=== PATIENT | male | born 1940 | race Hispanic/Latino ===

== ENCOUNTER 2016-11-21 06:47 | Emergency (ER) | payer MEDICARE ==
[2016-11-21 06:47] VITALS: BMI 22.0
[2016-11-21] MEDS ORDERED: Phenylephrine 1% Nasal Spray (15 ml) NAS ONE (07:21)
[2016-11-21] MEDS ORDERED: Silver Nitrate Topical - Stick TOP ONE (07:22)
[2016-11-21] MEDS ORDERED: Phenylephrine 1% Nasal Spray (15 ml) ONE (07:25)
[2016-11-21] MEDS ORDERED: Silver Nitrate Topical - Stick ONE ×2 (07:25→07:27)
--- NOTE | 2016-11-21 07:31 | C.PDOC ---
History Of Present Illness 76 yr old male with PMHx of heart disease, takes aspirin and plavix, presents to the ER for evaluation of bleeding from the left nare last night. Patient states the bleeding resolved last night but this morning while drinking a cup coffee the bleeding started again. Upon arrival to the ED bleeding had resolved. Patient denies fever, chills, vision changes, nausea, vomiting, headache, weakness or numbness. Time Seen by Provider: 11/21/16 07:09 Chief Complaint (Nursing): ENT Problem History Per: Patient History/Exam Limitations: None Onset/Duration Of Symptoms: Days (1) Current Symptoms Are (Timing): Better Past Medical History Reviewed: Historical Data, Nursing Documentation, Vital Signs Vital Signs: Last Vital Signs Temp 97.6 F 11/21/16 06:54 Pulse 120 H 11/21/16 06:54 Resp 18 11/21/16 06:54 BP 139/79 11/21/16 06:54 Pulse Ox 100 11/21/16 08:13 - Medical History PMH: Diabetes, HTN - [facility] Procedures ANGIOPLASTY OF OTHER NON-CORONARY VESSEL(S) (07/14/14) CONTRAST AORTOGRAM (07/14/14) CONTRAST ARTERIOGRAM-LEG (07/14/14) EXCISION OF RIGHT LOBE LIVER, PERCUTANEOUS APPROACH, DIAGN (08/08/16) INSEJ [id number] PERIPHERAL NON-CORONARY VES STENT(S) (07/14/14) INSERTION OF FOUR OR MORE VASCULAR STENTS (07/14/14) PROCEDURE ON FOUR OR MORE VESSELS (07/14/14) Family History: States: No Known Family Hx - Social History Hx Tobacco Use: No Hx Alcohol Use: No Hx Substance Use: No - Immunization History Hx Tetanus Toxoid Vaccination: No Hx Influenza Vaccination: No Hx Pneumococcal Vaccination: No Review Of Systems Except As Marked, All Systems Reviewed And Found Negative. Constitutional: Negative for: Fever, Chills Eyes: Negative for: Vision Change ENT: Positive for: Other ((+) Left nare epistaxis. No active bleeding. ) Gastrointestinal: Negative for: Nausea, Vomiting Neurological: Negative for: Weakness, Numbness, Headache Physical Exam - Physical Exam Appears: Well, Non-toxic, No Acute Distress Skin: Normal Color, Warm, Dry, No Rash Head: Atraumatic, Normacephalic Eye(s): bilateral: Normal Inspection, PERRL, EOMI Ear(s): Bilateral: Normal Nose: Normal, Epistaxis (Left Nare - Site noted to the left anterior with fresh blood, but no active bleeding.), No Deformity, No Tenderness, Other Oral Mucosa: Moist Tongue: Normal Appearing Lips: Normal Appearing Throat: Normal, No Erythema, No Exudate, No Drooling, Other (Residual blood in the pharynx) Neck: Normal, Normal ROM, Supple Chest: Symmetrical, No Tenderness Cardiovascular: Rhythm Regular, No Murmur Respiratory: Normal Breath Sounds, No Rales, No Rhonchi, No Wheezing Extremity: Normal ROM, No Swelling Neurological/Psych: Oriented x3, Normal Speech, Normal Motor ED Course And Treatment O2 Sat by Pulse Oximetry: 100 Medical Decision Making Medical Decision Making: PLAN: * Juvenal-Synephrine SOFIE * Silver Nitrate Stick TOP Juvenal-Synephrine applied to the L nostril. Bleeding site cauterized with silver nitrate stick by PA with no residual bleeding afterwards. Patient advised to follow up with ENT referral provided and to return to the ER at any time for any new or worsening symptoms. Disposition - Disposition Referrals: Anurag Boggs MD [Staff Provider] - Disposition: HOME/ ROUTINE Disposition Time: 08:11 Condition: STABLE Additional Instructions: Follow up with PMD / ENT referral provided in 1-2 days without fail. Return to the ER at any time for any new or worsening symptoms. Instructions: Nosebleed (ED) Print Language: [place] - Clinical Impression Clinical Impression: Epistaxis - PA / [employer]CIAL [employer] INSTRUCTOR / Resident Statement MD/DO has reviewed & agrees with the documentation as recorded. - Scribe Statement The provider has reviewed the documentation as recorded by the Scribe Joyce Ni All medical record entries made by the Colinibkelsey were at my direction and personally dictated by me. I have reviewed the chart and agree that the record accurately reflects my personal performance of the history, physical exam, medical decision making, and the department course for this patient. I have also personally directed, reviewed, and agree with the discharge instructions and disposition.
[2016-11-21 08:50] VITALS: BP 127/73; PULSE 85; RESP 20; TEMP 97.4; O2SAT 98
== END 2016-11-21 08:56 | disposition home or self-care (01) ==
LOC: C.ER 06:47
DX: R04.0 Epistaxis (principal)

== ENCOUNTER 2017-03-17 15:54 | Emergency (ER) | payer MEDICARE ==
[2017-03-17 15:55] VITALS: BMI 22.0
[2017-03-17] MEDS ORDERED: Sodium Chloride 0.9% 1,000 ML IV ONE (16:50)
[2017-03-17] MEDS ORDERED: Iohexol 240 (50 ml) PO STA (16:50)
[2017-03-17] MEDS ORDERED: Iohexol 240 (50 ml) ONE (17:04)
[2017-03-17] MEDS ORDERED: Morphine 4 MG/ML VIAL ONE (17:04)
[2017-03-17] MEDS ORDERED: Sodium Chloride 0.9% 1,000 ML ONE (17:04)
[2017-03-17 17:05] LABS: BASO % 0.6 % (0.0-2.0); EOS % 0.8 % (0.0-4.0); HEMOGLOBIN 9.8 g/dL (12.0-18.0); LYMPH # 0.5 K/uL (1.0-4.3); LYMPH % 8.7 % (20.0-40.0); MEAN CELL VOLUME 106.6 fL (80.0-94.0); MEAN CORPUSCULAR HEMOGLOBIN 36.1 pg (27.0-31.0); MEAN CORPUSCULAR HGB CONC 33.9 g/dL (33.0-37.0); MEAN PLATELET VOLUME 8.5 fL (7.2-11.7); MONO # 0.1 K/uL (0.0-0.8); MONO % 2.6 % (0.0-10.0); NEUT % 87.3 % (50.0-75.0); PLATELET COUNT 187 K/uL (130-400); RBC 2.72 Mil/uL (4.40-5.90); WHITE BLOOD COUNT 5.7 K/uL (4.8-10.8)
[2017-03-17 17:16] LABS: GFR AFRICAN-AMERICAN > 60; GFR NON-AFRICAN AMERICAN > 60
[2017-03-17 17:17] LABS: ALT/SGPT 46 U/L (21-72); AST/SGOT 39 U/L (17-59); BLOOD UREA NITROGEN 17 mg/dL (9-20); CALCIUM 8.2 mg/dl (8.6-10.4); LIPASE 30 U/L (23-300)
[2017-03-17] MEDS ORDERED: Iohexol 300 100 ML IJ ONE (17:32)
[2017-03-17 17:41] LABS: BANDS 1 % (0-2); BASOPHIL 1 % (0-2); LYMPHOCYTE 8 % (20-40); MONOCYTE 3 % (0-10); NEUTROPHIL 87 % (50-75); TOTAL CELLS COUNTED 100
[2017-03-17 17:42] LABS: ANISOCYTOSIS SLIGHT
[2017-03-17 17:43] LABS: PLATELET ESTIMATE NORMAL (NORMAL)
[2017-03-17 18:31] VITALS: RESP 18
--- NOTE | 2017-03-17 19:29 | CT ---
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 This CT exam was performed using one or more of the following dose reduction techniques: automated exposure control, adjustment of the mA and/or kV according to patient size, and/or use of iterative reconstruction technique. Coronal and sagittal reformatted images were created and reviewed. CONTRAST: 100 mL of OMNIPAQUE 300 administered intravenously. EXAM DATE/TIME: 03/17/2017 4:51 PM COMPARISON: CT GUIDED LIVER BIOPSY 08/08/2016 11:20:25 AM FINDINGS: Lower thorax: Heart size is normal. There are coronary calcifications. There is a small right pleural effusion. There is trace left pleural effusion. There are multiple bilateral pulmonary nodules. There is atelectasis at the lung bases. There is scarring at the lung bases There is a small hiatal hernia. ABDOMEN: Liver: A geographic low-attenuation lesion in the right lobe of the liver. There are multiple additional small low attenuation lesions. Gallbladder and bile ducts: Gallbladder is collapsed. Common bile duct is unremarkable. Pancreas: Pancreas is atrophic. There are small adrenal nodules. Spleen: unremarkable Adrenals: See above. Kidneys and ureters: There is a right renal cyst. There are no attenuation left renal lesions too small to characterize. There are renovascular vascular calcifications bilaterally. There is no pelvocaliectasis or ureterectasis. Stomach and bowel: Stomach is incompletely distended. Rotation is normal. There is mild duodenal and proximal jejunal wall thickening. There is no obstruction. Appendix and terminal ileum are unremarkable.Colon is incompletely distended which limits evaluation. There is scattered diverticulosis Appendix: See above. PELVIS: Bladder: Bladder is partially distended. There is bladder wall thickening. There are bladder diverticula. Reproductive: Seminal vesicles and prostate are unremarkable. ABDOMEN and PELVIS: Intraperitoneal space: There is ascites in the abdomen and pelvis. There is no free air Bones/joints: Bony structures are osteopenic.There are degenerative changes in the osseus structures. Soft tissues: There is a left inguinal hernia containing fat and fluid. Vasculature: There are vascular calcifications. Lymph nodes: There is no para-aortic adenopathy. IMPRESSION: Interval increase in size of right pleural effusion with development of a small left effusion; continued multiple bilateral pulmonary nodules consistent with metastases; infiltrative low-attenuation right hepatic lesion seen on prior study consistent with malignancy; interval development of ascites; pancreatic atrophy, unchanged; bladder wall thickening with diverticula Additional findings as described above.
[2017-03-17 20:10] LABS: SQUAMOUS EPITHIAL 5 /hpf (0-5); URINE BACTERIA RARE (<OCC); URINE BILIRUBIN NEGATIVE (NEGATIVE); URINE CLARITY Hazy (Clear); URINE COLOR Yellow (YELLOW); URINE GLUCOSE (UA) NORMAL (Normal); URINE LEUKOCYTE ESTERASE 3+ Leu/uL (Negative); URINE NITRATE NEGATIVE (NEGATIVE); URINE PROTEIN NEGATIVE (NEGATIVE); URINE UROBILINOGEN NORMAL mg/dL (0.2-1.0); WBC CLUMPS FEW /hpf
[2017-03-17 20:11] LABS: URINE BLOOD 2+ (NEGATIVE)
[2017-03-17] MEDS ORDERED: cefTRIAXone IV 1 gm in Dextros 50 ML IVPB ONE ×2 (20:51→20:54)
--- NOTE | 2017-03-17 21:29 | C.PDOC ---
Time Seen by Provider: 03/17/17 16:19 Chief Complaint (Nursing): Abdominal Pain History Per: Patient Onset/Duration Of Symptoms: Days Current Symptoms Are (Timing): Still Present Context: Other (Pt is on Chemotherapy due to Panceartic CA metastasis to Liver) Severity: Moderate Location Of Pain/Discomfort: RUQ Quality Of Discomfort: "Pain" Alleviating Factors: None Additional History Per: Prior Records Past Medical History Reviewed: Historical Data, Nursing Documentation, Vital Signs Vital Signs: Last Vital Signs Temp 98.2 F 03/17/17 20:11 Pulse 80 03/17/17 20:11 Resp 18 03/17/17 20:11 BP 115/70 03/17/17 20:11 Pulse Ox 97 03/17/17 20:11 - Medical History PMH: Diabetes, HTN, Malignancy (Metastatic pancreatic CA) Surgical History: No Surg Hx - [facility] Procedures ANGIOPLASTY OF OTHER NON-CORONARY VESSEL(S) (07/14/14) CONTRAST AORTOGRAM (07/14/14) CONTRAST ARTERIOGRAM-LEG (07/14/14) EXCISION OF RIGHT LOBE LIVER, PERCUTANEOUS APPROACH, DIAGN (08/08/16) INSEJ [id number] PERIPHERAL NON-CORONARY VES STENT(S) (07/14/14) INSERTION OF FOUR OR MORE VASCULAR STENTS (07/14/14) PROCEDURE ON FOUR OR MORE VESSELS (07/14/14) Family History: States: Unknown Family Hx - Social History Hx Tobacco Use: No Hx Alcohol Use: Yes Hx Substance Use: No - Immunization History Hx Tetanus Toxoid Vaccination: Yes Hx Influenza Vaccination: No Hx Pneumococcal Vaccination: No Review Of Systems Except As Marked, All Systems Reviewed And Found Negative. Constitutional: Negative for: Fever Cardiovascular: Negative for: Chest Pain Respiratory: Negative for: Cough, Shortness of Breath Gastrointestinal: Positive for: Abdominal Pain. Negative for: Vomiting, Diarrhea Genitourinary: Positive for: Dysuria (?) Musculoskeletal: Negative for: Neck Pain, Back Pain Skin: Negative for: Rash Neurological: Negative for: Weakness, Numbness, Seizures, Altered Mental Status , Headache Physical Exam - Physical Exam Appears: Non-toxic, No Acute Distress, Chronically Ill Skin: Normal Color, Warm, Dry, No Rash Head: Atraumatic, Normacephalic Eye(s): bilateral: PERRL, EOMI Oral Mucosa: Moist Neck: Normal ROM, Supple Cardiovascular: Rhythm Regular Respiratory: Normal Breath Sounds, No Accessory Muscle Use Gastrointestinal/Abdominal: Soft, Tenderness (mild RUQ), No Guarding, No Rebound Back: No CVA Tenderness Extremity: Normal ROM Neurological/Psych: Oriented x3, Normal Motor, Normal Sensation ED Course And Treatment - Laboratory Results Result Diagrams: 03/17/17 17:02 03/17/17 17:02 Lab Interpretation: Abnormal Interpretation Of Abnormal: UTI, urine C&S Sent O2 Sat by Pulse Oximetry: 97 Pulse Ox Interpretation: Normal - Radiology CXR: Interpreted by Me, Viewed By Me CXR Interpretation: Yes: Other (small right pleural effusion. Metastatic disease in lungs. ) - CT Scan/US CT abd/pelv Other Rad Studies (CT/US): Read By Radiologist, Radiology Report Reviewed CT/US Interpretation: IMPRESSION: Interval increase in size of right pleural effusion with. development of a small left effusion; continued multiple bilateral pulmonary. nodules consistent with metastases; infiltrative low- attenuation right hepatic. lesion seen on prior study consistent with malignancy; interval development of. ascites; pancreatic atrophy, unchanged; bladder wall thickening with diverticula. . Additional findings as described above. Progress Note: Pt does not wish to be admitted to the hospital. Reassessment Condition: Improved Disposition Discussed With : Kana Ortiz Comment: He states pt can be discharged on Cipro and f/up in his office in 2 days. Doctor Will See Patient In The: Office Counseled Patient/Family Regarding: Studies Performed, Diagnosis, Need For Followup, Rx Given - Disposition Referrals: Kana Ortiz MD [Staff Provider] - Disposition: HOME/ ROUTINE Disposition Time: 21:32 Condition: IMPROVED Additional Instructions: Drink plenty of fluids. Follow up with Dr. Ortiz this Friday. Return to the ER if you develop fever, vomiting, worsening of symptoms or if you have any other concerns. Prescriptions: Ciprofloxacin [Cipro] 1 tab PO BID #14 tab oxyCODONE/Acetaminophen [Percocet 5/325 mg Tab] 1 tab PO QID PRN #20 tab PRN Reason: Pain Instructions: Urinary Tract Infection in Men (ED) Forms: [employer] ([place]dean) - Clinical Impression Clinical Impression: Metastatic cancer, UTI (urinary tract infection)
[2017-03-17 21:49] VITALS: BP 119/62; PULSE 78; TEMP 97.8; O2SAT 98
--- NOTE | 2017-03-18 08:09 | CARD ---
APPROVED REPORT EKG Measurement Heart [id number] <Conclusion> Normal sinus rhythm Low voltage QRS Right bundle branch block Abnormal ECG
--- NOTE | 2017-03-18 08:59 | RAD ---
HISTORY: Pleural effusion COMPARISON: 08/08/2016 FINDINGS: LUNGS: Dense biapical pleural thickening and scarring with upper lobe granulomatous changes. Diffuse increased interstitial lung markings. Scattered nodularity at both lung bases with some mild patchy increased markings at the left lung base. Mild right hilar prominence. PLEURA: No significant pleural effusion identified, no pneumothorax apparent. CARDIOVASCULAR: Normal. OSSEOUS STRUCTURES: Probable small chondroid lesion in the right proximal humerus. Degenerative changes in the spine and shoulders. VISUALIZED UPPER ABDOMEN: Normal. OTHER FINDINGS: None. IMPRESSION: Dense biapical pleural thickening and scarring with upper lobe granulomatous changes. Diffuse increased interstitial lung markings. Scattered nodularity at both lung bases with some mild patchy increased markings at the left lung base. Mild right hilar prominence.
== END 2017-03-17 21:54 | disposition home or self-care (01) ==
LOC: C.ER 15:54
DX: C78.02 Secondary malignant neoplasm of left lung (principal); C78.01 Secondary malignant neoplasm of right lung; N39.0 Urinary tract infection, site not specified; I10 Essential (primary) hypertension; E11.9 Type 2 diabetes mellitus without complications; Z87.891 Personal history of nicotine dependence
CPT/HCPCS: 71010; 74177; 80053; 81001; 83690; 85025; 87086; 93005; 96361; 96374; 96375; 99285; J0696; J2270; J7040; Q9966; Q9967

== ENCOUNTER 2017-03-19 00:43 | Inpatient (IN) | payer MEDICARE, OTHER ==
[2017-03-19 00:43] VITALS: BMI 22.0
--- NOTE | 2017-03-19 01:12 | C.PDOC ---
History Of Present Illness Patient with a Hx of metastatic pancreatic CA presents to the ER with a complaint of right sided abdominal pain for the past week. Patient was seen here yesterday, he was discharge with a UTI and a follow up with Dr. Ortiz. Patient returns to the ER for worsening pain; denies fever, chills, nausea, or vomiting. Time Seen by Provider: 03/19/17 01:12 Chief Complaint (Nursing): Abdominal Pain History Per: Patient History/Exam Limitations: no limitations Onset/Duration Of Symptoms: Days Current Symptoms Are (Timing): Still Present Severity: Moderate Pain Scale Rating Of: 4 Location Of Pain/Discomfort: Other (Right flank) Radiation Of Pain To:: None Quality Of Discomfort: Unable To Describe Associated Symptoms: denies: Fever, Chills, Nausea, Vomiting Exacerbating Factors: None Alleviating Factors: None Recent travel outside of the [place]: No Past Medical History Reviewed: Historical Data, Nursing Documentation, Vital Signs Vital Signs: Last Vital Signs Temp 97.7 F 03/19/17 00:55 Pulse 87 03/19/17 00:55 Resp 16 03/19/17 00:55 BP 132/69 03/19/17 00:55 Pulse Ox 99 03/19/17 02:13 - Medical History PMH: Diabetes, HTN, Malignancy (Metastatic pancreatic CA) - [facility] Procedures ANGIOPLASTY OF OTHER NON-CORONARY VESSEL(S) (07/14/14) CONTRAST AORTOGRAM (07/14/14) CONTRAST ARTERIOGRAM-LEG (07/14/14) EXCISION OF RIGHT LOBE LIVER, PERCUTANEOUS APPROACH, DIAGN (08/08/16) INSEJ [id number] PERIPHERAL NON-CORONARY VES STENT(S) (07/14/14) INSERTION OF FOUR OR MORE VASCULAR STENTS (07/14/14) PROCEDURE ON FOUR OR MORE VESSELS (07/14/14) Family History: States: Unknown Family Hx - Social History Hx Tobacco Use: No Hx Alcohol Use: Yes Hx Substance Use: No - Immunization History Hx Tetanus Toxoid Vaccination: Yes Hx Influenza Vaccination: No Hx Pneumococcal Vaccination: No Review Of Systems Constitutional: Negative for: Fever, Chills Eyes: Negative for: Redness Cardiovascular: Negative for: Chest Pain Respiratory: Negative for: Shortness of Breath Gastrointestinal: Positive for: Abdominal Pain. Negative for: Nausea, Vomiting Genitourinary: Positive for: Frequency Musculoskeletal: Negative for: Back Pain Skin: Negative for: Rash, Lesions Neurological: Negative for: Weakness Psych: Positive for: Anxiety Physical Exam - Physical Exam Appears: Non-toxic Skin: Warm, Dry Head: Normacephalic Eye(s): bilateral: Normal Inspection Oral Mucosa: Moist Neck: Trachea Midline, Supple Chest: Symmetrical, No Tenderness Cardiovascular: Rhythm Regular, No Murmur Respiratory: No Rales, No Rhonchi, No Wheezing Gastrointestinal/Abdominal: Soft, No Tenderness Back: CVA Tenderness (Right) Male Genital: No Testicular Tenderness Extremity: No Tenderness Extremity: Bilateral: Atraumatic Pulses: Left Dorsalis Pedis: Normal, Right Dorsalis Pedis: Normal Neurological/Psych: Oriented x3, Normal Speech, Normal Cognition Gait: Steady ED Course And Treatment - Laboratory Results Result Diagrams: 03/19/17 01:34 03/19/17 01:34 O2 Sat by Pulse Oximetry: 99 (Room air) Pulse Ox Interpretation: Normal Progress Note: Blood culture and urinalysis ordered. Morphine and IV fluids administered. Disposition Discussed With : Apple Sommer Comment: accepted the pt on her service and took over the care at 3:48AM Doctor Will See Patient In The: Hospital Counseled Patient/Family Regarding: Studies Performed, Diagnosis - Disposition Disposition: HOSPITALIZED Disposition Time: 01:12 Condition: FAIR Forms: [facility] (Icelandic) - POA Present On Arrival: Poor Glycemic Control - Clinical Impression Clinical Impression: UTI (urinary tract infection), Liver metastasis, Metastatic cancer - Scribe Statement The provider has reviewed the documentation as recorded by the Scribe To More[place] All medical record entries made by the Scribe were at my direction and personally dictated by me. I have reviewed the chart and agree that the record accurately reflects my personal performance of the history, physical exam, medical decision making, and the department course for this patient. I have also personally directed, reviewed, and agree with the discharge instructions and disposition. Decision To Admit - Pt Status Changed To: Hospital Disposition Of: Inpatient - Admit Certification Admit to Inpatient:: After my assessment, the patient will require hospitalization for at least two midnights. This is because of the severity of symptoms shown, intensity of services needed, and/or the medical risk in this patient being treated as an outpatient. - InPatient: Physician Admission Certification:: After my assessment, the patient will require hospitalization for at least two midnights. This is because of the severity of symptoms shown, intensity of services needed, and/or the medical risk in this patient being treated as an outpatient. - . Bed Request Type: Regular Admitting Physician: Apple Sommer Patient Diagnosis: UTI (urinary tract infection), Liver metastasis, Metastatic cancer
[2017-03-19] MEDS ORDERED: Sodium Chloride 0.9% 1,000 ML IV ONE ×2 (01:14→02:31)
[2017-03-19] MEDS ORDERED: Sodium Chloride 0.9% 1,000 ML ONE (01:19)
[2017-03-19 01:40] LABS: EOS # 0.1 K/uL (0.0-0.7); EOS % 1.8 % (0.0-4.0); HEMATOCRIT 26.1 % (35.0-51.0); LYMPH # 0.5 K/uL (1.0-4.3); LYMPH % 14.1 % (20.0-40.0); MEAN CELL VOLUME 105.9 fL (80.0-94.0); MEAN CORPUSCULAR HEMOGLOBIN 35.8 pg (27.0-31.0); MEAN CORPUSCULAR HGB CONC 33.8 g/dL (33.0-37.0); MEAN PLATELET VOLUME 8.2 fL (7.2-11.7); MONO # 0.3 K/uL (0.0-0.8); MONO % 7.5 % (0.0-10.0); WHITE BLOOD COUNT 3.4 K/uL (4.8-10.8)
[2017-03-19 01:48] LABS: CHLORIDE 100 mmol/L (98-107); SODIUM 135 mmol/L (132-148)
[2017-03-19 01:48] LABS: VENOUS BLOOD GAS BASE EXCESS 3.1 mmol/L (0.0-2.0); VENOUS BLOOD GAS PCO2 38 mmHg (40-60); VENOUS BLOOD PH 7.46 (7.32-7.43)
[2017-03-19 01:50] LABS: ALKALINE PHOSPHATASE 419 U/L (38-126); ALT/SGPT 47 U/L (21-72); AST/SGOT 49 U/L (17-59); BILIRUBIN,TOTAL 1.2 mg/dL (0.2-1.3); BLOOD UREA NITROGEN 17 mg/dL (9-20); CARBON DIOXIDE 24 mmol/L (22-30); GFR AFRICAN-AMERICAN > 60; TOTAL PROTEIN 5.9 g/dL (6.3-8.3)
[2017-03-19 01:51] LABS: CALCIUM 8.3 mg/dl (8.6-10.4); GLUCOSE,RANDOM 119 mg/dL (75-110)
[2017-03-19 01:52] LABS: INR 1.2
[2017-03-19 04:29] LABS: RBC URINE 10 /hpf (0-3); URINE BACTERIA RARE (<OCC); URINE BILIRUBIN NEGATIVE (NEGATIVE); URINE BLOOD 1+ (NEGATIVE); URINE COLOR Yellow (YELLOW); URINE GLUCOSE (UA) NORMAL (Normal); URINE KETONE NEGATIVE (NEGATIVE); URINE LEUKOCYTE ESTERASE 3+ Leu/uL (Negative); URINE PROTEIN NEGATIVE (NEGATIVE); URINE UROBILINOGEN NORMAL mg/dL (0.2-1.0); WBC URINE 92 /hpf (0-5)
--- NOTE | 2017-03-19 17:42 | CON ---
DATE: ONCOLOGY CONSULTATION HISTORY OF PRESENT ILLNESS: This is a 76-year-old male with pancreas cancer widely metastatic to his liver, presented several months ago. He had received initially Abraxane chemotherapy, this did not work and so we switched him to the FOLFOX regimen and it seems to be improving. His blood tests were improving. In the last 2 to 3 days, he has been having severe pain in his right upper quadrant. He came to the emergency room 2 days ago and they found urinary tract infection with about 300 white cells in his urine. I gave him Cipro b.i.d. and OxyContin for the pain. The CAT scan at the time in the emergency room 2 days ago showed very slight but increase in his liver mets and new ascites. The patient went home and took his Cipro; however, he did not take OxyContin scared for his constipation and did not take Advil, did not take Tylenol, was in severe pain and then came back to the emergency room last night in that pain. PHYSICAL EXAMINATION SKIN: No petechia. No bruise. HEENT: Anicteric. LYMPHS: Nonpalpable in the axillary, cervical, supraclavicular and inguinal regions. LUNGS: Clear at present. . HEART: S1, S2. ABDOMEN: Shows some ascites and distention. There is some tenderness in the right upper quadrant. No edema. CENTRAL NERVOUS SYSTEM: No focal findings. ASSESSMENT AND PLAN: At this point, he is being treated for his urinary tract infection and his pain medicines. The morphine shots did help him; however he is convinced that any p.o. narcotic that he takes will be severely constipating. I told him he can take milk of magnesia with it, he says it does not work. We recommended lactulose. Perhaps, he can take today to clean him out and put him on lactulose empirically with a regimen of Percocet p.r.n. I will leave that to the primary care, to the palliative care people who I suggest to see the patient at this point for his pain control. Kana Ortiz MD
[2017-03-19] MEDS ORDERED: Sodium Chloride 0.9% 1,000 ML IV SCH (21:15)
[2017-03-19] MEDS ORDERED: HYDROmorphone 0.5 mg/0.5 ml ISec IVP PRN (23:57)
[2017-03-20 07:19] LABS: HEMATOCRIT 27.2 % (35.0-51.0); MEAN CELL VOLUME 105.7 fL (80.0-94.0); MEAN PLATELET VOLUME 9.1 fL (7.2-11.7); RED CELL DISTRIBUTION WIDTH 19.3 % (11.5-14.5); WHITE BLOOD COUNT 3.2 K/uL (4.8-10.8)
[2017-03-20 07:42] LABS: IRON 28 ug/dL (49-181)
[2017-03-20 07:46] LABS: BLOOD UREA NITROGEN 15 mg/dL (9-20); CARBON DIOXIDE 23 mmol/L (22-30); CHLORIDE 105 mmol/L (98-107); GFR AFRICAN-AMERICAN > 60; GLUCOSE,RANDOM 113 mg/dL (75-110); POTASSIUM 3.7 mmol/L (3.6-5.2); SODIUM 135 mmol/L (132-148)
[2017-03-20 08:15] LABS: THYROID STIMULATING HORMONE 2.53 mIU/L (0.46-4.68)
[2017-03-20 08:51] LABS: FOLATE 16.9 ng/mL
[2017-03-20] MEDS: cefTRIAXone IV 1 gm in Dextros 50 ML IVPB SCH (09:29)
--- NOTE | 2017-03-20 11:37 | HP ---
CHIEF COMPLAINT: Right flank pain. HISTORY OF PRESENT ILLNESS: The patient is a 76-year-old male with history of pancreatic cancer with metastases, on-call with Dr. Ortiz, came to the emergency room complaining about right-sided abdominal pain in the past week. The patient was seen a day before yesterday in the emergency room for the same complaint, UTI was diagnosed, was given antibiotics, discharged home, follow up with Dr. Ortiz. The patient presented to emergency room with flank pain and denies fever, chills, nausea, vomiting, and diarrhea. No aggravating or alleviating factor. PAST MEDICAL HISTORY: Diabetes mellitus, hypertension, pancreatic cancer with metastases. FAMILY HISTORY: Father and mother are noncontributory. HABITS: No smoking. Alcohol yes. No substance abuse. ALLERGIES: THE PATIENT IS NOT ALLERGIC WITH ANY MEDICATIONS. HOME MEDICATIONS: Reviewed by me. REVIEW OF SYSTEMS: The patient is seen and examined at the bedside in his room. According to him, his flank pain is decreasing, but still having pain. No nausea, vomiting, or diarrhea. No hematuria or hematochezia. No headache or dizziness. Seen by Dr. Ortiz. PHYSICAL EXAMINATION: VITAL SIGNS: Temperature is 97, pulse is 87, blood pressure is 128/72, and respiratory rate 20. HEENT: Head is normocephalic and atraumatic. Eyes, PERRLA. Extraocular muscles intact. Conjunctivae clear. Nose patent. Mucous membranes are moist. NECK: Supple. No carotid bruit. No thyromegaly. CHEST: Bilaterally symmetric. HEART: S1 and S2 positive. LUNGS: Clear to auscultation. ABDOMEN: Soft. Bowel sounds are present. No organomegaly. EXTREMITIES: No edema and no cyanosis. NEUROLOGIC: The patient is awake and alert. Moving all four extremities. No focal deficits. LABORATORY DATA: White blood cell 3.4, hemoglobin 8.8, hematocrit 26.1, platelets 173. Sodium 135, potassium 4.0, BUN 17, creatinine 0.8, glucose 152, calcium 8.3. ASSESSMENT AND PLAN: The patient is a 76-year-old male with uncontrolled diabetes mellitus, hypocalcemia, abnormal liver function test, leukopenia, anemia, hematuria, urinary tract infection, history of pancreatic cancer with metastases to the liver, got treatment from Dr. Ortiz. He came to the emergency room 2 times for urinary tract infection. CAT scan shows slightly but increase in the liver mass, and a new ascites, took Cipro as outpatient but failed. History of constipation. Appreciated Dr. Ortiz's input, we will call ID consult, getting heparin subcutaneously for DVT prophylaxis, morphine for pain , starting antibiotics. GI and DVT prophylaxis. Repeat labs. We will follow. Apple Sommer MD MTDD
--- NOTE | 2017-03-20 13:35 | CP.PCM.CON ---
History of Present Illness - History of Present Illness History of Present Illness: INFECTIOUS DISEASE CONSULTATION; HPI; 76-year-old male with history of metastatic pancreatic CA, on chemotherapy as per his oncologist Dr. Ortiz. Patient came to the emergency room 3 days ago with severe pain in his right upper quadrant for the past one week and was found to have a urinary tract infection with about 300 white cells in the urine patient was given by mouth antibiotics and sent home on by mouth Cipro twice a day and OxyContin for the pain. Patient now came back with severe pain right upper quadrant. Urine cultures 03/17/17 grew lactobacillus species. Patient presently started on IV ceftriaxone 1 g once a day daily. Infectious disease consultation requested by PMD for the above. Patient today complains of difficulty voiding and states has not passed his urine for about 2 hours. Patient also complains off constipation with analgesics. CT of the abdomen and pelvis with by mouth IV contrast done on 03/17/17 shows increasing right pleural effusion with multiple bilateral pulmonary nodules consistent with metastatic disease. Right hepatic lesion also consistent with metastatic disease. Interval development of ascites and pancreatic atrophy with bladder wall thickening seen. Patient also complaining of increased bloating and distention of the abdomen. Patient denies any nausea or vomiting. Allergy;nka. PMH: Diabetes, HTN, Malignancy (Metastatic pancreatic CA) - [facility] Procedures ANGIOPLASTY OF OTHER NON-CORONARY VESSEL(S) (07/14/14) CONTRAST AORTOGRAM (07/14/14) CONTRAST ARTERIOGRAM-LEG (07/14/14) EXCISION OF RIGHT LOBE LIVER, PERCUTANEOUS APPROACH, DIAGN (08/08/16) INSEJ [id number] PERIPHERAL NON-CORONARY VES STENT(S) (07/14/14) INSERTION OF FOUR OR MORE VASCULAR STENTS (07/14/14) PROCEDURE ON FOUR OR MORE VESSELS (07/14/14) Family History: States: Unknown Family Hx - Social History Hx Tobacco Use: No Hx Alcohol Use: Yes Hx Substance Use: No - Immunization History Hx Tetanus Toxoid Vaccination: Yes Hx Influenza Vaccination: No Hx Pneumococcal Vaccination: No Review of Systems - Constitutional Constitutional: absent: Chills, Fever - EENT Eyes: absent: Floaters, Other Visual Disturbances Nose/Mouth/Throat: absent: Mouth Lesions, Odynophagia - Cardiovascular Cardiovascular: Pedal Edema. absent: Chest Pain, Dyspnea - Respiratory Respiratory: absent: Cough - Gastrointestinal Gastrointestinal: Abdominal Pain (RIGHT UPPER QUADRANT..), Bloating, Constipation, Cramping. absent: Heartburn, Vomiting - Genitourinary Genitourinary: Difficulty Urinating, Flank Pain, Pyuria, Bladder Distension. absent: Hematuria - Neurological Neurological: absent: Headaches - Hematologic/Lymphatic Hematologic: As Per HPI Past Patient History - Past Medical History & Family History Past Medical History?: Yes - Past Social History Smoking Status: Former Smoker - CARDIAC Hx Congestive Heart Failure: Yes Hx Hypertension: Yes - PULMONARY Hx Chronic Obstructive Pulmonary Disease (COPD): Yes - NEUROLOGICAL Hx Neurological Disorder: No - HEENT Hx HEENT Problems: No - RENAL Hx Chronic Kidney Disease: No - ENDOCRINE/METABOLIC Hx Diabetes Mellitus Type 2: Yes - HEMATOLOGICAL/ONCOLOGICAL Hx Blood Disorders: Yes Hx Blood Transfusions: No Hx Blood Transfusion Reaction: No Hx Cancer: Yes (METS.(LIVER MASS, LUNG MASS), CURRENTLY DOING CHEMOTHERAPY) Other/Comment: LIVER CA - INTEGUMENTARY Hx Dermatological Problems: No - MUSCULOSKELETAL/RHEUMATOLOGICAL Hx Arthritis: Yes (KAREEM) - GASTROINTESTINAL Hx Gastrointestinal Disorders: Yes Other/Comment: HX: LIVER MASS. HX: WEIGHT LOSS. HX: ABDOMINAL PAIN - GENITOURINARY/GYNECOLOGICAL Hx Genitourinary Disorders: No - PSYCHIATRIC Hx Substance Use: No - SURGICAL HISTORY Hx Surgeries: Yes Hx Angiogram: Yes Hx Angioplasty: Yes Hx Vascular Surgery: Yes (STENT IN LEGS) Other/Comment: HX: I & D ABSCESS IN GROIN - ANESTHESIA Hx Anesthesia: Yes Hx Anesthesia Reactions: No Hx Malignant Hyperthermia: No Meds Allergies/Adverse Reactions: Allergies Allergy/AdvReac Type Severity Reaction Status Date / Time No Known Allergies Allergy Verified 03/17/17 16:07 - Medications Medications: Current Medications Famotidine (Pepcid) 40 mg PO DAILY [facility] Last Admin: 03/20/17 12:50 Dose: 40 mg Heparin Sodium (Porcine) (Heparin) 5,000 units SC Q8 [facility] Last Admin: 03/20/17 12:52 Dose: 5,000 units Hydromorphone HCl (Dilaudid) 0.5 mg IVP Q4H PRN PRN Reason: Pain, Mild (1-3) Sodium Chloride (Sodium Chloride 0.9%) 1,000 mls @ 60 mls/hr IV .[id number] [facility] Last Admin: 03/19/17 21:15 Dose: 60 mls/hr Ceftriaxone Sodium (Rocephin Iv 1 Gm Duplex) 50 mls @ 100 mls/hr IVPB DAILY [facility] Last Admin: 03/20/17 09:29 Dose: 100 mls/hr Lactulose (Enulose) 30 gm PO DAILY [facility] Last Admin: 03/20/17 09:28 Dose: 30 gm Morphine Sulfate (Morphine) 2 mg IVP Q4H PRN PRN Reason: Pain, severe (8-10) Last Admin: 03/19/17 21:08 Dose: 2 mg Physical Exam - Constitutional Appears: No Acute Distress - Head Exam Head Exam: NORMAL INSPECTION - Eye Exam Eye Exam: EOMI, PERRL - ENT Exam ENT Exam: Mucous Membranes Dry, Normal Oropharynx - Neck Exam Neck exam: Positive for: Normal Inspection - Respiratory Exam Respiratory Exam: Decreased Breath Sounds (BOTH BASES.), Prolonged Expiratory Phase - Cardiovascular Exam Cardiovascular Exam: REGULAR RHYTHM, +S1, +S2 - GI/Abdominal Exam GI & Abdominal Exam: Distended, Normal Bowel Sounds, Tenderness (RIGHT UPPER QUADRANT AND LEFT FLANK.) - Extremities Exam Extremities exam: Positive for: pedal pulses present. Negative for: calf tenderness, pedal edema - Back Exam Back exam: CVA tenderness (L) - Neurological Exam Neurological exam: Alert, CN II-XII Intact, Oriented x3 - Psychiatric Exam Psychiatric exam: Normal Mood - Skin Skin Exam: Normal Color, Warm Results - Vital Signs Recent Vital Signs: Last Vital Signs Temp 97.5 F L 03/20/17 08:21 Pulse 96 H 03/20/17 08:21 Resp 20 03/20/17 08:21 BP 120/70 03/20/17 09:33 Pulse Ox 99 03/20/17 08:21 - Labs Result Diagrams: 03/20/17 06:35 03/20/17 06:32 Labs: Laboratory Results - last 24 hr 03/19/17 03/19/17 03/20/17 16:29 21:34 06:32 WBC RBC Hgb Hct MCV MCH MCHC RDW Plt Count MPV Sodium Potassium Chloride Carbon Dioxide Anion Gap BUN Creatinine Est GFR ( Amer) Est GFR (Non-Af Amer) POC Glucose (mg/dL) 242 H 152 H Random Glucose Hemoglobin A1c Calcium Iron TIBC % Saturation Triglycerides 71 Cholesterol 92 LDL Cholesterol Direct 33 HDL Cholesterol 48 Vitamin B12 946 H Folate 16.9 TSH 3rd Generation 08/10/17 08/10/17 08/10/17 06:32 06:32 06:32 WBC RBC Hgb Hct MCV MCH MCHC RDW Plt Count MPV Sodium 135 Potassium 3.7 Chloride 105 Carbon Dioxide 23 Anion Gap 11 BUN 15 Creatinine 0.7 L Est GFR ( Amer) > 60 Est GFR (Non-Af Amer) > 60 POC Glucose (mg/dL) Random Glucose 113 H Hemoglobin A1c 5.7 Calcium 8.0 L Iron 28 L TIBC 237 L % Saturation 12 L Triglycerides Cholesterol LDL Cholesterol Direct HDL Cholesterol Vitamin B12 Folate TSH 3rd Generation 2.53 03/20/17 03/20/17 03/20/17 06:35 07:13 11:25 WBC 3.2 L RBC 2.57 L Hgb 9.2 L Hct 27.2 L MCV 105.7 H MCH 36.0 H MCHC 34.0 RDW 19.3 H Plt Count 175 MPV 9.1 Sodium Potassium Chloride Carbon Dioxide Anion Gap BUN Creatinine Est GFR ( Amer) Est GFR (Non-Af Amer) POC Glucose (mg/dL) 122 H 296 H Random Glucose Hemoglobin A1c Calcium Iron TIBC % Saturation Triglycerides Cholesterol LDL Cholesterol Direct HDL Cholesterol Vitamin B12 Folate TSH 3rd Generation - Imaging and Cardiology Chest x-ray Status: Report reviewed by me (chest x-ray 03/17/17 diffuse increased interstitial lung markings. Scattered nodularity both lung bases. Mild patchy increased markings left lung base and mild right hilar prominence.) Assessment & Plan (1) Abdominal pain Status: Acute (2) UTI (urinary tract infection) Status: Acute (3) Lower obstructive uropathy Assessment and Plan: check PSA. Patient will need Infante insertion but wants to be put to sleep. Consider Gu evaluation as per PMD Status: Acute (4) Liver metastasis Status: Acute (5) Diabetes Status: Chronic (6) Metastatic cancer Status: Acute - Assessment and Plan (Free Text) Plan: PLAN; REPEAT UA/ URINE CULTURES. PSA PATIENT WILL NEED A Infante CATHETER IF PERSISTENT URINARY HESITANCY AND DIFFICULTY VOIDING. URINE CULTURE SHOWING LACTOBACILLUS SPECIES /? CONTAMINANT VERSUS REAL. CONTINUE iv CEFTRIAXONE 1 G ONCE A DAY DAILY 03/19/19. fOLLOW-UP RENAL FUNCTIONS CLOSELY. cASE DISCUSSED WITH THE STAFF. CONSIDER EVALUATION/ FOLY INSERTION
[2017-03-21 06:28] LABS: BASO % 0.8 % (0.0-2.0); EOS # 0.1 K/uL (0.0-0.7); EOS % 1.9 % (0.0-4.0); LYMPH # 0.5 K/uL (1.0-4.3); LYMPH % 13.9 % (20.0-40.0); MEAN CELL VOLUME 105.5 fL (80.0-94.0); MEAN CORPUSCULAR HEMOGLOBIN 36.2 pg (27.0-31.0); MEAN CORPUSCULAR HGB CONC 34.3 g/dL (33.0-37.0); MEAN PLATELET VOLUME 8.7 fL (7.2-11.7); MONO # 0.4 K/uL (0.0-0.8); MONO % 9.7 % (0.0-10.0); RED CELL DISTRIBUTION WIDTH 20.1 % (11.5-14.5); WHITE BLOOD COUNT 3.8 K/uL (4.8-10.8)
[2017-03-21 06:50] LABS: ALB/GLOB RATIO 0.9 (1.0-2.1); ALKALINE PHOSPHATASE 468 U/L (38-126); ALT/SGPT 47 U/L (21-72); AST/SGOT 51 U/L (17-59); BILIRUBIN,TOTAL 1.2 mg/dL (0.2-1.3); BLOOD UREA NITROGEN 17 mg/dL (9-20); CALCIUM 8.7 mg/dl (8.6-10.4); CARBON DIOXIDE 24 mmol/L (22-30); CHLORIDE 104 mmol/L (98-107); GFR AFRICAN-AMERICAN > 60; GLUCOSE,RANDOM 118 mg/dL (75-110); SODIUM 139 mmol/L (132-148); TOTAL PROTEIN 5.6 g/dL (6.3-8.3)
--- NOTE | 2017-03-21 09:29 | PN ---
DATE: 03/20/2017 SUBJECTIVE: The patient was seen and examined on , looking comfortable. No nausea, vomiting or diarrhea. No hematuria or hematochezia. Still having pain and cannot pass the urine. We discontinue the IV fluid. We will consult with the urologist if started Gatica catheter. PHYSICAL EXAMINATION: VITAL SIGNS: Temperature is 98.5, pulse is 75, blood pressure is 115/52, and respiratory rate 18. HEENT: Head is normocephalic and atraumatic. Eyes, PERRLA. Extraocular muscles intact. Conjunctivae clear. Nose patent. Mucous membranes are moist. NECK: Supple. No carotid bruit. No thyromegaly. CHEST: Bilaterally symmetric. HEART: S1 and S2 positive. LUNGS: Clear to auscultation. ABDOMEN: Soft. Bowel sounds are present. No organomegaly. EXTREMITIES: No edema and no cyanosis. NEUROLOGIC: The patient is awake and alert. Moving all four extremities. No focal deficits. MEDICATIONS: Dilaudid, heparin, famotidine, ceftriaxone. LABORATORY DATA: White blood cell 3.2, hemoglobin 9.2, hematocrit 37.2, platelets 175. Sodium 135, potassium 3.7, BUN 15, creatinine 0.7, glucose of 113. ASSESSMENT AND PLAN: The patient is a [id number] male with leukopenia, anemia, hyperglycemia, has metastatic pancreatic cancer on chemotherapy by Dr. Ortiz, urinary traction infection, urinary retention, Gatica catheter passed and urology consult with Dr. Garcia, constipation with analgesics, pleural effusion with multiple bilateral pulmonary nodules consistent with metastatic disease, right hepatic lesion also consistent with metastatic disease, ascites, pancreatic atrophy with bladder wall thickening, history of diabetes mellitus, hypertension. ID consult called with Dr. Boyd Capellan appreciated her help, urology consult was with Dr. Garcia, waiting for the input. The patient was seen by Dr. Ortiz also. Continue pain management. Anemia, leukopenia, abdominal pain is still there, lower obstructive uropathy. We will check PSA. GI/DVT prophylaxis. We will follow. Apple Sommer MD [facility] # [id number] MTDD
[2017-03-21] MEDS: cefTRIAXone IV 1 gm in Dextros 50 ML IVPB SCH (11:18)
--- NOTE | 2017-03-21 11:22 | CON ---
DATE: HISTORY OF PRESENT ILLNESS: This is a man with pancreas cancer who has 2 medical problems here. 1. The urinary tract infection for which he is taking antibiotics. He is not having fever. 2. The right upper quadrant pain that he has. I will repeat the CAT scans of his abdomen from two days on Friday which does show the liver metastases and lung metastases. He was not taking his pain medications at home and he was not taking milk of magnesia at home, so he was getting severe constipation after he took one or two pain pills and refused to take any pain pills and was now in severe pain. I have spoken to the daughter yesterday and spoke with the yesterday, and I spoke again with him today. He finally agreed I think to take the pain medication as well as milk of magnesia. I told him to take 1 or 2 tablespoons, 30 mL of milk of magnesia daily whether he has a bowel movement or not. To take the pain medications. I believe he does have several pills left of the oxycodone at home, but I would advise that he be discharged with oxycodone and Percocet 5, one tab q 8 hours p.r.n. He knows to see me in the office next week that he is due for his chemotherapy on . I told him not to take the Xeloda pills which he is supposed to start on Friday, and I will re-evaluate the chemotherapy. However, for now, I think if he is willing to take the pain medication and milk of magnesia, he should be able to be going home. Kana Ortiz MD
[2017-03-21 20:19] LABS: RBC URINE 8 /hpf (0-3); URINE BILIRUBIN NEGATIVE (NEGATIVE); URINE CALCIUM OXALATE CRYSTALS RARE /hpf (<OCC); URINE COLOR Amber (YELLOW); URINE GLUCOSE (UA) NORMAL (Normal); URINE KETONE TRACE mg/dL (NEGATIVE); URINE LEUKOCYTE ESTERASE 3+ Leu/uL (Negative); URINE PROTEIN 1+ mg/dL (NEGATIVE); URINE UROBILINOGEN NORMAL mg/dL (0.2-1.0); WBC CLUMPS MANY /hpf; WBC URINE 128 /hpf (0-5)
[2017-03-21 20:23] LABS: URINE BLOOD 1+ (NEGATIVE)
[2017-03-21 20:24] LABS: URINE BACTERIA MANY (<OCC)
--- NOTE | 2017-03-21 23:04 | CP.PCM.PN ---
Subjective - Date & Time of Evaluation Date of Evaluation: 03/21/17 Time of Evaluation: 23:04 - Subjective Subjective: AFEBRILE, S/P Infante INSERTION BY DR MCKENZIE THIS AM. fEELS BETTER. lESS ABDOMINAL DISCOMFORT. +VE ASCITES Objective - Vital Signs/Intake and Output Vital Signs (last 24 hours): Temp Pulse Resp BP Pulse Ox 98.5 F 86 20 124/73 98 03/21/17 15:00 03/21/17 17:16 03/21/17 15:00 03/21/17 17:16 03/21/17 17:16 Intake and Output: 03/21/17 03/22/17 18:59 06:59 Intake Total 250 Output Total 220 Balance 30 - Medications Medications: Current Medications Famotidine (Pepcid) 40 mg PO DAILY [facility] Last Admin: 03/21/17 11:17 Dose: 40 mg Heparin Sodium (Porcine) (Heparin) 5,000 units SC Q8 [facility] Last Admin: 03/21/17 21:24 Dose: 5,000 units Hydromorphone HCl (Dilaudid) 0.5 mg IVP Q4H PRN PRN Reason: Pain, Mild (1-3) Last Admin: 03/20/17 18:00 Dose: 0.5 mg Ceftriaxone Sodium (Rocephin Iv 1 Gm Duplex) 50 mls @ 100 mls/hr IVPB DAILY [facility] Last Admin: 03/21/17 11:18 Dose: 100 mls/hr Lactulose (Enulose) 30 gm PO DAILY [facility] Last Admin: 03/21/17 11:17 Dose: 30 gm Morphine Sulfate (Morphine) 2 mg IVP Q4H PRN PRN Reason: Pain, severe (8-10) Last Admin: 03/20/17 17:19 Dose: 2 mg Zolpidem Tartrate (Ambien) 5 mg PO HS PRN PRN Reason: Insomnia Last Admin: 03/21/17 21:55 Dose: 5 mg - Labs Labs: 03/21/17 06:15 03/21/17 06:15 PT 13.7 SECONDS (9.7-12.2) H 03/19/17 01:34 INR 1.2 03/19/17 01:34 APTT 30 SECONDS (21-34) 03/19/17 01:34 - Constitutional Appears: No Acute Distress, Cachectic, Chronically Ill - Head Exam Head Exam: NORMAL INSPECTION - Eye Exam Eye Exam: EOMI, PERRL - ENT Exam ENT Exam: Normal Oropharynx - Neck Exam Neck Exam: Normal Inspection - Respiratory Exam Respiratory Exam: Decreased Breath Sounds - Cardiovascular Exam Cardiovascular Exam: REGULAR RHYTHM, +S1, +S2 - GI/Abdominal Exam GI & Abdominal Exam: Soft, Tenderness (LOWER ABDOMINAL DISCOMFORT.), Normal Bowel Sounds - Extremities Exam Extremities Exam: Pedal Edema. absent: Calf Tenderness - Neurological Exam Neurological Exam: Alert, Awake, CN II-XII Intact, Oriented x3 - Psychiatric Exam Psychiatric exam: Normal Mood - Skin Skin Exam: Normal Color, Warm Assessment and Plan (1) Abdominal pain Status: Acute (2) UTI (urinary tract infection) Assessment & Plan: URINE CULTURE SHOWING LACTOBACILLUS SPECIES /? CONTAMINANT VERSUS REAL. CONTINUE iv CEFTRIAXONE 1 G ONCE A DAY DAILY 03/19/19. fOLLOW-UP RENAL FUNCTIONS CLOSELY. cASE DISCUSSED WITH THE STAFF. Status: Acute (3) Lower obstructive uropathy Assessment & Plan: s/p Infante INSERTION BY . fOLLOW-UP REPEAT ua URINE CULTURES. Status: Acute (4) Liver metastasis Status: Acute (5) Diabetes Status: Chronic (6) Metastatic cancer Status: Acute
--- NOTE | 2017-03-21 23:21 | CP.PCM.CON ---
History of Present Illness - History of Present Illness History of Present Illness: cc: unable to urinate Hx of uti pancreatic ca Past Patient History - Past Medical History & Family History Past Medical History?: Yes - Past Social History Smoking Status: Former Smoker - CARDIAC Hx Congestive Heart Failure: Yes Hx Hypertension: Yes - PULMONARY Hx Chronic Obstructive Pulmonary Disease (COPD): Yes - NEUROLOGICAL Hx Neurological Disorder: No - HEENT Hx HEENT Problems: No - RENAL Hx Chronic Kidney Disease: No - ENDOCRINE/METABOLIC Hx Diabetes Mellitus Type 2: Yes - HEMATOLOGICAL/ONCOLOGICAL Hx Blood Disorders: Yes Hx Blood Transfusions: No Hx Blood Transfusion Reaction: No Hx Cancer: Yes (METS.(LIVER MASS, LUNG MASS), CURRENTLY DOING CHEMOTHERAPY) Other/Comment: LIVER CA - INTEGUMENTARY Hx Dermatological Problems: No - MUSCULOSKELETAL/RHEUMATOLOGICAL Hx Arthritis: Yes (KNNEES) - GASTROINTESTINAL Hx Gastrointestinal Disorders: Yes Other/Comment: HX: LIVER MASS. HX: WEIGHT LOSS. HX: ABDOMINAL PAIN - GENITOURINARY/GYNECOLOGICAL Hx Genitourinary Disorders: No - PSYCHIATRIC Hx Substance Use: No - SURGICAL HISTORY Hx Surgeries: Yes Hx Angiogram: Yes Hx Angioplasty: Yes Hx Vascular Surgery: Yes (STENT IN LEGS) Other/Comment: HX: I & D ABSCESS IN GROIN - ANESTHESIA Hx Anesthesia: Yes Hx Anesthesia Reactions: No Hx Malignant Hyperthermia: No Meds Allergies/Adverse Reactions: Allergies Allergy/AdvReac Type Severity Reaction Status Date / Time No Known Allergies Allergy Verified 03/17/17 16:07 - Medications Medications: Current Medications Famotidine (Pepcid) 40 mg PO DAILY [facility] Last Admin: 03/21/17 11:17 Dose: 40 mg Heparin Sodium (Porcine) (Heparin) 5,000 units SC Q8 [facility] Last Admin: 03/21/17 21:24 Dose: 5,000 units Hydromorphone HCl (Dilaudid) 0.5 mg IVP Q4H PRN PRN Reason: Pain, Mild (1-3) Last Admin: 03/20/17 18:00 Dose: 0.5 mg Ceftriaxone Sodium (Rocephin Iv 1 Gm Duplex) 50 mls @ 100 mls/hr IVPB DAILY [facility] Last Admin: 03/21/17 11:18 Dose: 100 mls/hr Lactulose (Enulose) 30 gm PO DAILY [facility] Last Admin: 03/21/17 11:17 Dose: 30 gm Morphine Sulfate (Morphine) 2 mg IVP Q4H PRN PRN Reason: Pain, severe (8-10) Last Admin: 03/20/17 17:19 Dose: 2 mg Zolpidem Tartrate (Ambien) 5 mg PO HS PRN PRN Reason: Insomnia Last Admin: 03/21/17 21:55 Dose: 5 mg Results - Vital Signs Recent Vital Signs: Last Vital Signs Temp 98.5 F 03/21/17 15:00 Pulse 86 03/21/17 17:16 Resp 20 03/21/17 15:00 BP 124/73 03/21/17 17:16 Pulse Ox 98 03/21/17 17:16 - Labs Result Diagrams: 03/21/17 06:15 03/21/17 06:15 Labs: Laboratory Results - last 24 hr 03/21/17 03/21/17 03/21/17 06:15 06:15 07:25 WBC 3.8 L RBC 2.75 L Hgb 10.0 L Hct 29.0 L MCV 105.5 H MCH 36.2 H MCHC 34.3 RDW 20.1 H Plt Count 208 MPV 8.7 Neut % (Auto) 73.7 Lymph % (Auto) 13.9 L [place] % (Auto) 9.7 Eos % (Auto) 1.9 Baso % (Auto) 0.8 Neut # 2.8 Lymph # 0.5 L [place] # 0.4 Eos # 0.1 Baso # 0.0 Sodium 139 Potassium 4.0 Chloride 104 Carbon Dioxide 24 Anion Gap 15 BUN 17 Creatinine 0.8 Est GFR ( Amer) > 60 Est GFR (Non-Af Amer) > 60 POC Glucose (mg/dL) 131 H Random Glucose 118 H Calcium 8.7 Total Bilirubin 1.2 Direct Bilirubin 1.0 H AST 51 ALT 47 Alkaline Phosphatase 468 H Total Protein 5.6 L Albumin 2.6 L Globulin 3.0 Albumin/Globulin Ratio 0.9 L Urine Color Urine Clarity Urine pH Ur Specific [place] Urine Protein Urine Glucose (UA) Urine Ketones Urine Blood Urine Nitrate Urine Bilirubin Urine Urobilinogen Ur Leukocyte Esterase Urine WBC (Auto) Urine RBC (Auto) Urine WBC Clumps (Auto) Ur Squamous Epith Cells Calcium Oxalate Crystal Urine Bacteria 03/21/17 03/21/17 03/21/17 11:40 16:16 19:54 WBC RBC Hgb Hct MCV MCH MCHC RDW Plt Count MPV Neut % (Auto) Lymph % (Auto) [place] % (Auto) Eos % (Auto) Baso % (Auto) Neut # Lymph # [place] # Eos # Baso # Sodium Potassium Chloride Carbon Dioxide Anion Gap BUN Creatinine Est GFR ( Amer) Est GFR (Non-Af Amer) POC Glucose (mg/dL) 152 H 119 H Random Glucose Calcium Total Bilirubin Direct Bilirubin AST ALT Alkaline Phosphatase Total Protein Albumin Globulin Albumin/Globulin Ratio Urine Color [place]se Urine Clarity Hazy Urine pH 5.0 Ur Specific [place] 1.017 Urine Protein 1+ H Urine Glucose (UA) Normal Urine Ketones Trace Urine Blood 1+ H Urine Nitrate Negative Urine Bilirubin Negative Urine Urobilinogen Normal Ur Leukocyte Esterase 3+ H Urine WBC (Auto) 128 H Urine RBC (Auto) 8 H Urine WBC Clumps (Auto) Many H Ur Squamous Epith Cells < 1 Calcium Oxalate Crystal Rare Urine Bacteria Many H 03/21/17 20:57 WBC RBC Hgb Hct MCV MCH MCHC RDW Plt Count MPV Neut % (Auto) Lymph % (Auto) [place] % (Auto) Eos % (Auto) Baso % (Auto) Neut # Lymph # [place] # Eos # Baso # Sodium Potassium Chloride Carbon Dioxide Anion Gap BUN Creatinine Est GFR ( Amer) Est GFR (Non-Af Amer) POC Glucose (mg/dL) 194 H Random Glucose Calcium Total Bilirubin Direct Bilirubin AST ALT Alkaline Phosphatase Total Protein Albumin Globulin Albumin/Globulin Ratio Urine Color Urine Clarity Urine pH Ur Specific [place] Urine Protein Urine Glucose (UA) Urine Ketones Urine Blood Urine Nitrate Urine Bilirubin Urine Urobilinogen Ur Leukocyte Esterase Urine WBC (Auto) Urine RBC (Auto) Urine WBC Clumps (Auto) Ur Squamous Epith Cells Calcium Oxalate Crystal Urine Bacteria Assessment & Plan - Assessment and Plan (Free Text) Assessment: Imp: urethral stricture urinary retention Rec/plan: Stricture dilated with filiform and follower catheters Gatica cath to SD I%& O's Thank you YS 03/21/2017 11:20 AM - Date & Time Date: 03/21/17 Time: 11:15
--- NOTE | 2017-03-22 02:05 | PN ---
SUBJECTIVE: The patient is a 76 years old male. The patient is seen and examined on the bedside, looking comfortable. According to patient he cannot sleep at night, has history of insomnia while taking Ambien at home, still has urinary retention, waiting for Dr. Garcia to come and put the Gatica catheter, because nurses tried, but cannot put the Gatica catheter, looks like his bladder is distended. PHYSICAL EXAMINATION: VITAL SIGNS: Temperature is 98.5, pulse is 86, blood pressure is 125/72 and respiratory rate 18. HEENT: Head is normocephalic and atraumatic. Eyes, PERRLA. Extraocular muscles intact. Conjunctivae clear. Nose patent. Mucous membranes moist. NECK: Supple. No carotid bruit. No JVD or thyromegaly. CHEST: Bilaterally symmetrical. HEART: S1 and S2 positive. LUNGS: Clear to auscultation. ABDOMEN: Soft. Bowel sounds are present. No organomegaly. EXTREMITIES: No edema and no cyanosis. NEUROLOGIC: The patient is awake and alert. Moving all four extremities. No focal deficits. MEDICATIONS: Ambien just started right now, Dilaudid, lactulose, heparin, morphine, Pepcid and Rocephin. LABORATORY DATA: White blood cell 3.8, hemoglobin 10.0, hematocrit 29.0 and platelets 208. Sodium 130, potassium 4.0, BUN 17, creatinine 0.8, glucose 194 and 119. ASSESSMENT AND PLAN: Mr. Raudel Jones 76 years old male has uncontrolled diabetes mellitus, abnormal liver function test, leukopenia, anemia, proteinuria, hematuria, has history of metastatic pancreatic cancer on chemotherapy from Dr. Ortiz, came with abdominal pain and had urinary tract infection, now he has retention and Gatica catheter put. Urologist consult call with Dr. Garcia, history of hypertension, insomnia Ambien started, checking antibiotics at infectious disease Dr. Boyd Capellan. Gastrointestinal and deep venous thrombosis prophylaxis. Repeat labs. We will follow. Apple Sommer MD
--- NOTE | 2017-03-22 10:36 | DS ---
ONCOLOGY FOLLOW UP CONSULTATION HISTORY OF PRESENT ILLNESS: The patient has a several problems. 1. A 76-year-old man with the pancreatic cancer with metastases to his lungs and to his liver, overall stable with slight increase. 2. He is having a pain mostly in his right upper quadrant and received pain medications for this. 3. However, he is still having severe constipation following the narcotics, he was not taking at home the milk of magnesia and cathartics. Here he says that he did move his bowels twice yesterday, but he is not really eating very much. There is a lot of *------* but he did move his bowels twice yesterday. 4. Urinary tract infection for which he is on antibiotics. However, he turns on that and he says that he has been having less urination day to day that he cannot urinate it all for the last day. He says that he has seen Dr. Richards in the past and also he had prostate problems in the past. Then, he said this this may shank turner to be secondary to the narcotics and the closing of the urethra secondary to the narcotic medication. Dr. Richards has been called to evaluate for Gatica catheter. Dr. Richards knows this patient from the past *------*. I expect that the patient will be in the hospital within the next couple of days secondary to the Gatica now that will probably be put in and further evaluation was done for his pain medications. Kana Ortiz MD
[2017-03-22] MEDS: cefTRIAXone IV 1 gm in Dextros 50 ML IVPB SCH (10:40)
--- NOTE | 2017-03-22 20:55 | CP.PCM.PN ---
Subjective - Date & Time of Evaluation Date of Evaluation: 03/22/17 Time of Evaluation: 20:55 - Subjective Subjective: AFEBRILE, S/P Infante INSERTION BY DR MCKENZIE 03/21 states urine output poor fEELS BETTER. lESS ABDOMINAL DISCOMFORT. +VE ASCITES URINE CULTURE +VE GPC- (ID. PENDING ) Objective - Vital Signs/Intake and Output Vital Signs (last 24 hours): Temp Pulse Resp BP Pulse Ox 98.7 F 71 20 114/52 L 98 03/22/17 17:12 03/22/17 17:12 03/22/17 17:12 03/22/17 17:12 03/22/17 17:12 Intake and Output: 03/22/17 03/23/17 18:59 06:59 Intake Total 150 Output Total 950 Balance -800 - Medications Medications: Current Medications Famotidine (Pepcid) 40 mg PO DAILY [facility] Last Admin: 03/22/17 09:10 Dose: 40 mg Hydromorphone HCl (Dilaudid) 0.5 mg IVP Q4H PRN PRN Reason: Pain, Mild (1-3) Last Admin: 03/20/17 18:00 Dose: 0.5 mg Ceftriaxone Sodium (Rocephin Iv 1 Gm Duplex) 50 mls @ 100 mls/hr IVPB DAILY [facility] Last Admin: 03/22/17 10:40 Dose: 100 mls/hr Lactulose (Enulose) 30 gm PO DAILY [facility] Last Admin: 03/22/17 09:09 Dose: 30 gm Morphine Sulfate (Morphine) 2 mg IVP Q4H PRN PRN Reason: Pain, severe (8-10) Last Admin: 03/20/17 17:19 Dose: 2 mg Zolpidem Tartrate (Ambien) 5 mg PO HS PRN PRN Reason: Insomnia Last Admin: 03/21/17 21:55 Dose: 5 mg - Labs Labs: 03/21/17 06:15 03/21/17 06:15 PT 13.7 SECONDS (9.7-12.2) H 03/19/17 01:34 INR 1.2 03/19/17 01:34 APTT 30 SECONDS (21-34) 03/19/17 01:34 - Constitutional Appears: No Acute Distress - Head Exam Head Exam: NORMAL INSPECTION - Eye Exam Eye Exam: EOMI, PERRL - ENT Exam ENT Exam: Normal Oropharynx - Neck Exam Neck Exam: Normal Inspection - Respiratory Exam Respiratory Exam: Decreased Breath Sounds. absent: Respiratory Distress - Cardiovascular Exam Cardiovascular Exam: REGULAR RHYTHM, +S1, +S2 - GI/Abdominal Exam GI & Abdominal Exam: Soft, Normal Bowel Sounds. absent: Tenderness (LOWER ABDOMEN.) - Extremities Exam Extremities Exam: absent: Calf Tenderness, Pedal Edema - Neurological Exam Neurological Exam: Awake, CN II-XII Intact, Oriented x3 - Psychiatric Exam Psychiatric exam: Normal Mood - Skin Skin Exam: Normal Color, Warm Assessment and Plan (1) Abdominal pain Assessment & Plan: LESS ABDOMINAL DISTENSION . Status: Acute (2) UTI (urinary tract infection) Assessment & Plan: URINE CULTURE SHOWING LACTOBACILLUS SPECIES /? CONTAMINANT VERSUS REAL. F/U REPEAT URINE CULTURE THIS ADMISSION. CONTINUE iv CEFTRIAXONE 1 G ONCE A DAY DAILY 03/19/19. fOLLOW-UP RENAL FUNCTIONS CLOSELY. CASE DISCUSSED WITH THE STAFF. Status: Acute (3) Lower obstructive uropathy Assessment & Plan: S/P FOLYS INSERTION BY 03/21/17 Status: Acute (4) Liver metastasis Status: Acute (5) Diabetes Status: Chronic (6) Metastatic cancer Status: Acute
--- NOTE | 2017-03-23 00:41 | PN ---
DATE: 03/22/2017 SUBJECTIVE: The patient was seen and examined at bedside. No fever, no chills. No nausea, vomiting, diarrhea. No hematemesis, no hematochezia. No headache, no dizziness. No chest pain, no palpitation. Complaining about he is feeling that fully he is not emptying his bladder. Nurse ordered bladder scan. Urologist, Dr. Garcia, is on the case. We will talk to Dr. Garcia. PHYSICAL EXAMINATION GENERAL: Text. VITAL SIGNS: Temperature 98.7, pulse 71, blood pressure 140/53, respiratory rate 20. HEENT: Head, normocephalic and atraumatic. Eyes, PERRLA. Extraocular muscles intact. Conjunctivae clear. Nose patent. Mucous membranes moist. NECK: Supple. No carotid bruits, JVD, or thyromegaly. CHEST: Bilaterally symmetrical. HEART: S1, S2 positive. LUNGS: Clear to auscultation. ABDOMEN: Soft. Bowel sounds present. No organomegaly. EXTREMITIES: No edema, no cyanosis. NEUROLOGICAL: The patient is awake, alert, moving all 4 extremities. No focal deficit. LABORATORY DATA: White blood cells 3.8, hemoglobin 10.0, hematocrit 29.0, platelets 208. Glucose 154, 132, 258, 142. MEDICATIONS: Ambien, Dilaudid, Enulose, morphine, Pepcid, Rocephin. ASSESSMENT AND PLAN: The patient is a 76-year-old male with leukopenia, anemia, hyperglycemia, proteinuria, hematuria, urinary tract infection, is getting antibiotics. We will continue antibiotics as per Dr. Boyd Capellan. Urologist is on the case. The patient was not able to urinate. Gatica catheter put by Dr. Naif Garcia. History of pancreatic cancer with metastasis. Looks like the patient has urethral stricture, urinary retention, stricture dilated with filiform and with follower catheter with Gatica catheter to suction drainage. Appreciate Dr. Garcia's input. GI and DVT prophylaxis, repeat labs. Apple Sommer MD
[2017-03-23] MEDS: cefTRIAXone IV 1 gm in Dextros 50 ML IVPB SCH (09:28)
--- NOTE | 2017-03-24 06:57 | PN ---
DATE: 03/23/2017 SUBJECTIVE: The patient is 76 years old male. The patient was seen and examined on 03/23/2017, on the bedside, feeling better and no nausea, vomiting, diarrhea. No hematuria. No hematochezia. No swelling of the leg. No chest pain or palpitation. No headache or dizziness. PHYSICAL EXAMINATION VITAL SIGNS: Temperature 99, pulse 72, blood pressure 133/50, respiratory rate 20. HEENT: Head is normocephalic and atraumatic. Eyes, PERRLA. Extraocular muscles intact. Conjunctivae clear. Nose patent. Mucous membranes are moist. NECK: Supple. No carotid bruit, JVD or thyromegaly. CHEST: Bilaterally symmetrical. HEART: S1 and S2 positive. LUNGS: Clear to auscultation. ABDOMEN: Soft. Bowel sounds are present. No organomegaly. EXTREMITIES: No edema. No cyanosis. NEUROLOGIC: The patient is awake and alert. Moving all four extremities. No focal deficits. LABORATORY DATA: We do not have the patient's lab today, but I reviewed old labs; glucose 140, 303, and 161. MEDICATIONS: Ambien, lactulose, Pepcid, and Rocephin. ASSESSMENT AND PLAN: Mr. Raudel Jones is 76 years old male with multiple medical problems, has urinary retention, suprapubic Gatica insertion by Dr. Garcia, but according to nursing staff, urine output is poor. Dr. Garcia was called, but feels better. History of liver metastasis, diabetes mellitus, metastatic cancer, abdominal pain improving, and urinary tract infection. Urine culture is showing lactobacillus species, contamination versus real. Followup repeat urine culture and sensitivity. Continue IV ceftriaxone and followup renal function very closely. Gastrointestinal and deep venous thrombosis prophylaxis. Repeat labs. We will followup. Apple Sommer MD
--- NOTE | 2017-03-24 07:04 | CON ---
DATE: 03/21/2017 REQUESTED BY: Apple Sommer MD. OPERATING SURGEON: Carmen Garcia MD. REASON FOR CONSULTATION: Urinary retention. HISTORY OF PRESENT ILLNESS: The patient is a 76-year-old male with urinary retention. The patient is an otherwise [id number] health. The patient has history of pancreatic cancer. The patient is currently admitted for evaluation and treatment of abdominal pain and pancreatic cancer. The patient previously voided with fair urinary stream. The patient has history of previous urinary tract infection. The patient has history of prostatic lavage. The patient has been treated in the past with Cipro. He has no history of urolithiasis. No recent hematuria. No flank pain. The patient has had back pain. He reports no recent chest pain. The patient noted over the past week that he had poor urinary steam. He has been unable to urinate for the past 2 days while in the hospital. The patient had attempted Gatica catheter insertion. However, the catheter was unable to be inserted. PHYSICAL EXAMINATION GENERAL: The patient is well developed, well nourished elderly male. ABDOMEN: Soft. Mildly distended. There was tenderness in the suprapubic area. Genitalia without inflammation. IMPRESSION: Urinary retention, history of BPH. PLAN: I performed bladder scan. There was greater than 500 mL within the bladder. I attempted insertion of a coude tip catheter including a 12-Mexican and coude tip catheter. However, I encountered obstruction in the proximal bulbous urethra. I was unable to insert either of these catheters. I thereafter performed a urethral dilation with filiform and follower. I inserted a 5-Mexican filiform into the bladder. I then dilated the stricture with follower catheter from size 10-Mexican to size 18-Mexican. Clear urine returned. I thereafter of passed a 16-Mexican Councill catheter over secured to the filiform catheter into the bladder. Bladder drainage was clear. I left the Councill catheter in place with its balloon inflated to 10 mL volume. The patient felt comfortable throughout the procedure. Procedure was performed under local anesthesia with lidocaine jelly, in a sterile fashion. IMPRESSION: Urinary retention and urethral stricture. RECOMMENDATION AND PLAN: Gatica catheter indwelling. Further care to follow. Further care regarding pancreatic cancer as per the patient's primary physician. Carmen Garcia MD cc: MD Carmen Hermosillo MD Patient chart
[2017-03-24] MEDS: cefTRIAXone IV 1 gm in Dextros 50 ML IVPB SCH (11:22)
--- NOTE | 2017-03-24 17:23 | US ---
PROCEDURE: Ultrasound of left inguinal canal HISTORY: r/o inguinal hernia COMPARISON: CT abdomen/ pelvis 03/17/2017 TECHNIQUE: Ultrasound of the left inguinal canal was performed utilizing a linear array transducer. FINDINGS: There is fluid distending the left inguinal canal. There is heterogeneous mildly echogenic material seen within the inguinal canal, of uncertain significance. There was no peristalsing bowel observed by the technologist performing the examination. IMPRESSION: Fluid distending left inguinal canal without evidence of herniated bowel.
[2017-03-24 21:26] LABS: TOTAL PSA 0.1 ng/mL (<=4.0)
--- NOTE | 2017-03-24 23:30 | CP.PCM.PN ---
Subjective - Date & Time of Evaluation Date of Evaluation: 03/24/17 Time of Evaluation: 23:30 - Subjective Subjective: AFEBRILE, S/P Infante INSERTION BY DR REESE 03/21 C/O LOWER ABDOMINAL DISCOMFORT. +VE ASCITES URINE CULTURE +VE STAPH AUREUS > 100,000 COLONIES PER Ml identification pending. PLAN ; DC iv CEFTRIAXONE. START iv tYGACIL 100 MG LOADING DOSE FOLLOWED BY 50 MG EVERY 12 HOURLY TO COVER FOR MRSA. 03/24/17. fOLLOW-UP CULTURES TO ADJUST ANTIBIOTICS. Objective - Vital Signs/Intake and Output Vital Signs (last 24 hours): Temp Pulse Resp BP Pulse Ox 98.4 F 90 20 103/71 99 03/24/17 19:50 03/24/17 19:50 03/24/17 19:50 03/24/17 19:50 03/24/17 19:50 Intake and Output: 03/24/17 03/25/17 18:59 06:59 Intake Total 400 Output Total 650 Balance -250 - Medications Medications: Current Medications Famotidine (Pepcid) 40 mg PO DAILY [facility] Last Admin: 03/24/17 11:21 Dose: 40 mg Tigecycline 100 mg/ Sodium (Chloride) 100 mls @ 100 mls/hr IVPB ONCE ONE Stop: 03/25/17 00:27 Tigecycline 50 mg/ Dextrose 100 mls @ 100 mls/hr IVPB Q12H [facility] Lactulose (Enulose) 30 gm PO DAILY [facility] Last Admin: 03/24/17 11:21 Dose: Not Given Zolpidem Tartrate (Ambien) 5 mg PO HS PRN PRN Reason: Insomnia Last Admin: 03/24/17 22:46 Dose: 5 mg - Labs Labs: 03/21/17 06:15 03/21/17 06:15 PT 13.7 SECONDS (9.7-12.2) H 03/19/17 01:34 INR 1.2 03/19/17 01:34 APTT 30 SECONDS (21-34) 03/19/17 01:34 - Constitutional Appears: No Acute Distress, Cachectic, Chronically Ill - Head Exam Head Exam: NORMAL INSPECTION - Eye Exam Eye Exam: EOMI, PERRL - ENT Exam ENT Exam: Normal Oropharynx - Neck Exam Neck Exam: Normal Inspection - Respiratory Exam Respiratory Exam: Decreased Breath Sounds (bases.) - Cardiovascular Exam Cardiovascular Exam: REGULAR RHYTHM, +S1, +S2 - GI/Abdominal Exam GI & Abdominal Exam: Distended, Tenderness (lower abdomen. Positive ascites.), Normal Bowel Sounds - Extremities Exam Extremities Exam: Pedal Edema. absent: Calf Tenderness - Neurological Exam Neurological Exam: Awake, CN II-XII Intact, Oriented x3 - Psychiatric Exam Psychiatric exam: Normal Mood - Skin Skin Exam: Normal Color, Warm Assessment and Plan (1) Abdominal pain Assessment & Plan: patient has metastatic pancreatic ca with metastases to the liver. Positive ascites. f/u lfts Status: Acute (2) UTI (urinary tract infection) Assessment & Plan: REPEAT URINE CULTURES POSITIVE FOR STAPH AUREUS 50,000- 100,000CFU/M,L dc iv CEFTRIAXONE. sTART iv tYGACIL 100 MG LOADING DOSE FOLLOWED BY 50 MG EVERY 12 HOURLY.03/24/17. mONITOR RENAL FUNCTIONS AND lftS. Status: Acute (3) Lower obstructive uropathy Assessment & Plan: S/P Infante INSERTION BY dR. Reese 03/21/17. Status: Acute (4) Liver metastasis Status: Acute (5) Diabetes Status: Chronic (6) Metastatic cancer Status: Acute
--- NOTE | 2017-03-25 05:36 | PN ---
The patient is 76 years old male. SUBJECTIVE: The patient was seen and examined at the bedside, looking comfortable. No nausea, vomiting, or diarrhea. No hematuria or hematochezia. No swelling of the legs. No chest pain. No palpitation. No headache. No dizziness. PHYSICAL EXAMINATION VITAL SIGNS: Temperature is 98.4, pulse 90, blood pressure 103/71, and respiratory rate 20. HEENT: Head is normocephalic and atraumatic. Eyes, PERRLA. Extraocular muscles intact. Conjunctivae clear. Nose patent. Mucous membranes moist. NECK: Supple. No carotid bruits. No JVD. No thyromegaly. CHEST: Bilaterally symmetrical. HEART: S1 and S2 positive. LUNGS: Clear to auscultation. ABDOMEN: Soft. Bowel sounds present. No organomegaly. EXTREMITIES: No edema, no cyanosis. NEUROLOGIC: The patient is awake, alert. Moving all 4 extremities. No focal deficits. MEDICATIONS: Ambien, lactulose, Pepcid, and tigecycline. LABORATORY DATA: We do not have recent labs today, but I reviewed old labs. Sugars 140 to 146. ASSESSMENT AND PLAN: The patient is 76 years old male. He is admitted in the [facility] with abdominal pain, urinary tract infection, lower obstructive uropathy, liver metastasis. diabetes, and metastatic cancer. Seen by Dr. Carmen Garcia on 03/23/2017. He has pancreatic cancer, urinary retention, and urethral stricture. Dr. Garcia put Gatica catheter. He went for soft tissue ultrasound, it showed fluid in the left inguinal canal without evidence of herniated bowel. Urologist is on the case. The patient is getting Ambien for sleep, taking antibiotics, Tygacil for UTI, lactulose for constipation, and Pepcid for GI prophylaxis. Repeat labs. We will follow up. Apple Sommer MD
[2017-03-25 07:09] LABS: HEMATOCRIT 29.1 % (35.0-51.0); MEAN CELL VOLUME 104.1 fL (80.0-94.0); MEAN CORPUSCULAR HEMOGLOBIN 35.4 pg (27.0-31.0); MEAN PLATELET VOLUME 8.6 fL (7.2-11.7); RED CELL DISTRIBUTION WIDTH 19.9 % (11.5-14.5); WHITE BLOOD COUNT 4.6 K/uL (4.8-10.8)
[2017-03-25 07:54] LABS: CHLORIDE 101 mmol/L (98-107); SODIUM 135 mmol/L (132-148)
[2017-03-25 07:55] LABS: POTASSIUM 3.3 mmol/L (3.6-5.2)
[2017-03-25 07:57] LABS: ALB/GLOB RATIO 0.9 (1.0-2.1); ALKALINE PHOSPHATASE 478 U/L (38-126); ALT/SGPT 49 U/L (21-72); AST/SGOT 53 U/L (17-59); BILIRUBIN,DIRECT 0.6 mg/dL (0.0-0.4); BILIRUBIN,TOTAL 0.9 mg/dL (0.2-1.3); BLOOD UREA NITROGEN 15 mg/dL (9-20); CALCIUM 8.3 mg/dl (8.6-10.4); CARBON DIOXIDE 27 mmol/L (22-30); GFR AFRICAN-AMERICAN > 60; GLUCOSE,RANDOM 99 mg/dL (75-110); TOTAL PROTEIN 5.2 g/dL (6.3-8.3)
--- NOTE | 2017-03-25 13:18 | CP.PCM.PN ---
Subjective - Date & Time of Evaluation Date of Evaluation: 03/25/17 Time of Evaluation: 13:17 - Subjective Subjective: AFEBRILE, ANXIOUS TO SIGN OUT AMA. AT BEDSIDE. PE; UNCHANGED S/P Infante INSERTION BY DR REESE 03/21 C/O LOWER ABDOMINAL DISCOMFORT. +VE ASCITES URINE CULTURE +VE STAPH AUREUS > 100,000 CFU/ML +VE MRSA PLAN ; CONTACT ISOLATION ON iv tYGACIL 100 MG LOADING DOSE FOLLOWED BY 50 MG EVERY 12 HOURLY TO COVER FOR MRSA. 03/24/17. fOLLOW-UP CULTURES TO ADJUST ANTIBIOTICS. Objective - Vital Signs/Intake and Output Vital Signs (last 24 hours): Temp Pulse Resp BP Pulse Ox 98.5 F 86 20 121/70 97 03/25/17 08:00 03/25/17 08:00 03/25/17 08:00 03/25/17 08:00 03/25/17 08:00 Intake and Output: 03/25/17 03/25/17 06:59 18:59 Intake Total 620 Output Total 950 Balance -330 - Medications Medications: Current Medications Famotidine (Pepcid) 40 mg PO DAILY [facility] Last Admin: 03/25/17 09:55 Dose: 40 mg Tigecycline 50 mg/ Sodium (Chloride) 100 mls @ 100 mls/hr IVPB Q12H [facility] Lactulose (Enulose) 30 gm PO DAILY [facility] Last Admin: 03/25/17 09:54 Dose: Not Given Zolpidem Tartrate (Ambien) 5 mg PO HS PRN PRN Reason: Insomnia Last Admin: 03/24/17 22:46 Dose: 5 mg - Labs Labs: 03/25/17 07:03 03/25/17 07:03 PT 13.7 SECONDS (9.7-12.2) H 03/19/17 01:34 INR 1.2 03/19/17 01:34 APTT 30 SECONDS (21-34) 03/19/17 01:34 - Constitutional Appears: No Acute Distress, Cachectic, Chronically Ill - Eye Exam Eye Exam: EOMI, PERRL - ENT Exam ENT Exam: Normal Oropharynx - Neck Exam Neck Exam: Normal Inspection - Respiratory Exam Respiratory Exam: Decreased Breath Sounds - Cardiovascular Exam Cardiovascular Exam: REGULAR RHYTHM, +S1, +S2 - GI/Abdominal Exam GI & Abdominal Exam: Soft, Tenderness (SUPRAPUBIC), Normal Bowel Sounds ( POSITIVE ASCITES.) - Extremities Exam Extremities Exam: Pedal Edema. absent: Calf Tenderness - Neurological Exam Neurological Exam: Awake, CN II-XII Intact, Oriented x3 - Psychiatric Exam Psychiatric exam: Anxious - Skin Skin Exam: Normal Color, Warm Assessment and Plan (1) Abdominal pain Status: Acute (2) UTI (urinary tract infection) Assessment & Plan: ON iv tYGACIL 100 MG LOADING DOSE FOLLOWED BY 50 MG EVERY 12 HOURLY.03/24/17. mONITOR RENAL FUNCTIONS AND lftS. FOLLOW-UP REPEAT ua URINE CULTURES. Status: Acute (3) Lower obstructive uropathy Assessment & Plan: PATIENT HAS A Infante CATHETER IN PLACE PER . PATIENT WANTS Infante TO BE REMOVED, AND WANTS TO GO HOME AT BEDSIDE, wILL DISCUSS WITH DR Reese. Status: Acute (4) Liver metastasis Status: Acute (5) Diabetes Status: Chronic (6) Metastatic cancer Status: Acute
--- NOTE | 2017-03-26 05:44 | PN ---
DATE: 03/25/2017 SUBJECTIVE: The patient is a 76-year old male. The patient was seen and examined on the bedside on 03/25/2017. No nausea, vomiting, or diarrhea. No hematuria or hematochezia. No swelling of the legs. No chest pain. No palpitation. No headache. No dizziness. Still having Gatica catheter. PHYSICAL EXAMINATION VITAL SIGNS: Temperature 98.4, pulse 109, respiratory rate 20. HEENT: Head is normocephalic and atraumatic. Eyes; PERRLA. Extraocular muscles intact. Conjunctivae clear. Nose patent. Mucous membranes moist. NECK: Supple. No carotid bruit. No thyromegaly. CHEST: Bilaterally symmetric. HEART: S1 and S2 positive. LUNGS: Clear to auscultation. ABDOMEN: Soft. Bowel sounds are present. No organomegaly. EXTREMITIES: No edema and no cyanosis. NEUROLOGIC: The patient is awake and alert. Moving all four extremities. No focal deficits. MEDICATION: Zolpidem, lactulose, Pepcid, and tigecycline. LABORATORY DATA: White blood cell 4.6, hemoglobin 9.9, hematocrit 29.1, platelets 234. Sodium 135, potassium 3.3, BUN 15, creatinine 0.7, glucose 137, and calcium 8.3. ASSESSMENT AND PLAN: Mr. Raudel Jones is a 76-year-old male with leukopenia, anemia, hypokalemia, diabetes mellitus uncontrolled, hypocalcemia, urinary tract infection, had methicillin-resistant Staphylococcus aureus. Dr. Nix continued the antibiotics, was started on tigecycline. Seen by Dr. Carmen Garcia. He went for soft tissue ultrasound. The patient has history of obstructive uropathy, urinary tract infection, liver metastasis, metastatic cancer, diabetes mellitus, has pancreatic cancer, urinary retention, urethral stricture. Gatica catheter was put by Dr. Garcia. Continue antibiotics as per ID. Gastrointestinal and deep venous thrombosis prophylaxis. Repeat labs. We will follow up. Apple Sommer MD
[2017-03-26 06:43] LABS: ALB/GLOB RATIO 0.9 (1.0-2.1); ALKALINE PHOSPHATASE 418 U/L (38-126); ALT/SGPT 50 U/L (21-72); AST/SGOT 53 U/L (17-59); BILIRUBIN,TOTAL 0.8 mg/dL (0.2-1.3); BLOOD UREA NITROGEN 18 mg/dL (9-20); CALCIUM 8.3 mg/dl (8.6-10.4); CARBON DIOXIDE 25 mmol/L (22-30); CHLORIDE 102 mmol/L (98-107); GFR AFRICAN-AMERICAN > 60; GLUCOSE,RANDOM 98 mg/dL (75-110); POTASSIUM 3.6 mmol/L (3.6-5.2); SODIUM 133 mmol/L (132-148); TOTAL PROTEIN 4.7 g/dL (6.3-8.3)
[2017-03-26 07:12] LABS: HEMATOCRIT 28.9 % (35.0-51.0); MEAN CELL VOLUME 104.7 fL (80.0-94.0); MEAN CORPUSCULAR HEMOGLOBIN 35.1 pg (27.0-31.0); MEAN CORPUSCULAR HGB CONC 33.5 g/dL (33.0-37.0); MEAN PLATELET VOLUME 9.2 fL (7.2-11.7); RED CELL DISTRIBUTION WIDTH 19.5 % (11.5-14.5); WHITE BLOOD COUNT 4.9 K/uL (4.8-10.8)
--- NOTE | 2017-03-26 12:31 | PCM.URO ---
Urology Progress Note - General General: No Complaints, Tolerating Diet - Subjective Abdominal Pain: Yes Flank Pain: No Nausea: No Vomiting: No Hematuria: No Dsypnea: No Chest Pain: No Fever & Chills: No - Objective Lab Studies: Reviewed Lab Results Last 24 Hours: Laboratory Results - last 24 hr 03/25/17 03/25/17 03/26/17 16:36 21:50 06:22 WBC 4.9 RBC 2.76 L Hgb 9.7 L Hct 28.9 L MCV 104.7 H MCH 35.1 H MCHC 33.5 RDW 19.5 H Plt Count 258 MPV 9.2 Sodium Potassium Chloride Carbon Dioxide Anion Gap BUN Creatinine Est GFR ( Amer) Est GFR (Non-Af Amer) POC Glucose (mg/dL) 207 H 113 H Random Glucose Calcium Total Bilirubin AST ALT Alkaline Phosphatase Total Protein Albumin Globulin Albumin/Globulin Ratio 03/26/17 03/26/17 03/26/17 06:22 07:10 11:11 WBC RBC Hgb Hct MCV MCH MCHC RDW Plt Count MPV Sodium 133 Potassium 3.6 Chloride 102 Carbon Dioxide 25 Anion Gap 9 L BUN 18 Creatinine 0.7 L Est GFR ( Amer) > 60 Est GFR (Non-Af Amer) > 60 POC Glucose (mg/dL) 127 H 261 H Random Glucose 98 Calcium 8.3 L Total Bilirubin 0.8 AST 53 ALT 50 Alkaline Phosphatase 418 H Total Protein 4.7 L Albumin 2.3 L Globulin 2.5 Albumin/Globulin Ratio 0.9 L Intake & Output: Intake & Output 03/25/17 03/26/17 03/26/17 18:59 06:59 18:59 Output Total 200 Balance -200 Output: Urine 200 Urethral (Gatica) 200 Vital Signs: Vital Signs - 24 hr 03/25/17 03/26/17 03/26/17 15:00 00:00 08:14 Temperature 98.4 F 98.2 F 98.3 F Pulse Rate 73 72 85 Respiratory 20 20 20 Rate Blood Pressure 109/61 127/70 133/64 O2 Sat by Pulse 98 95 97 Oximetry - Physical Exam Abdominal Exam: Soft, Non-Tender, Non-Distended Back: No CVA Tenderness Genitalia: Without Inflammation Urinary Catheter Draining Well: Yes Urine Color: Clear, Yellow - Male Phallus: Normal Scrotum: Normal - Plan Additional Information: Imp:Stable post uretrhal dilation and catheteriation. Hx of urinary retention. Pancreatic ca. Rec/Plan. Trial of voiding t/f. YS - Date & Time of Note Date: 03/26/17 Time: 11:00
--- NOTE | 2017-03-26 13:13 | CP.PCM.PN ---
Subjective - Date & Time of Evaluation Date of Evaluation: 03/26/17 Time of Evaluation: 13:13 - Subjective Subjective: AFEBRILE, S/P Infante REMOVAL BY DR. MCKENZIE THIS A.M. PATIENT AWAITING VOIDING. pATIENT ENCOURAGED TO DRINK MORE WATER AND IF HE DOESN'T VOID WILL NEED Infante AGAIN. pATIENT GIVEN A PITCHER OF WATER TO DRINK. PRESENT. CASE DISCUSSED WITH THE NURSING STAFF/APRN AND . CONTINUE IV TYGACIL FOR NOW X3 DAYS fOLLOW-UP REPEAT ua URINE CULTURES. IF STABLE MAY BE ABLE TO DISCHARGE ON friday ON BY MOUTH BACTRIM 1 DOUBLE STRENGTH TWICE A DAY FOR 5 DAYS. Objective - Vital Signs/Intake and Output Vital Signs (last 24 hours): Temp Pulse Resp BP Pulse Ox 98.3 F 85 20 133/64 97 03/26/17 08:14 03/26/17 08:14 03/26/17 08:14 03/26/17 08:14 03/26/17 08:14 - Medications Medications: Current Medications Famotidine (Pepcid) 40 mg PO DAILY [facility] Last Admin: 03/26/17 09:04 Dose: 40 mg Tigecycline 50 mg/ Sodium (Chloride) 100 mls @ 100 mls/hr IVPB Q12H [facility] Last Admin: 03/26/17 11:51 Dose: 100 mls/hr Lactulose (Enulose) 30 gm PO DAILY [facility] Last Admin: 03/26/17 09:02 Dose: Not Given Zolpidem Tartrate (Ambien) 5 mg PO HS PRN PRN Reason: Insomnia Last Admin: 03/25/17 22:26 Dose: 5 mg - Labs Labs: 03/26/17 06:22 03/26/17 06:22 PT 13.7 SECONDS (9.7-12.2) H 03/19/17 01:34 INR 1.2 03/19/17 01:34 APTT 30 SECONDS (21-34) 03/19/17 01:34 - Constitutional Appears: No Acute Distress, Chronically Ill - Head Exam Head Exam: NORMAL INSPECTION - Eye Exam Eye Exam: EOMI, PERRL - ENT Exam ENT Exam: Normal Oropharynx - Neck Exam Neck Exam: Normal Inspection - Respiratory Exam Respiratory Exam: Decreased Breath Sounds - Cardiovascular Exam Cardiovascular Exam: REGULAR RHYTHM, +S1, +S2 - GI/Abdominal Exam GI & Abdominal Exam: Distended (POSITIVE ASCITES.), Soft, Normal Bowel Sounds - Extremities Exam Extremities Exam: Pedal Edema. absent: Calf Tenderness - Neurological Exam Neurological Exam: Awake, CN II-XII Intact, Oriented x3 - Psychiatric Exam Psychiatric exam: Normal Mood - Skin Skin Exam: Normal Color, Warm Assessment and Plan (1) Abdominal pain Status: Acute (2) UTI (urinary tract infection) Status: Acute (3) Lower obstructive uropathy Status: Acute (4) Liver metastasis Status: Acute (5) Diabetes Status: Chronic (6) Metastatic cancer Status: Acute
[2017-03-26 13:42] LABS: RBC URINE 15 /hpf (0-3); URINE BACTERIA RARE (<OCC); URINE BILIRUBIN NEGATIVE (NEGATIVE); URINE BLOOD 2+ (NEGATIVE); URINE COLOR Yellow (YELLOW); URINE GLUCOSE (UA) NORMAL (Normal); URINE KETONE NEGATIVE (NEGATIVE); URINE LEUKOCYTE ESTERASE 2+ Leu/uL (Negative); URINE PROTEIN NEGATIVE (NEGATIVE); URINE UROBILINOGEN NORMAL mg/dL (0.2-1.0); WBC URINE 14 /hpf (0-5)
[2017-03-26] MEDS: HYDROmorphone 0.5 mg/0.5 ml ISec IVP PRN (18:39)
[2017-03-27] MEDS: HYDROmorphone 0.5 mg/0.5 ml ISec IVP PRN ×2 (02:02→08:12)
--- NOTE | 2017-03-27 04:04 | CP.PCM.PN ---
Subjective - Date & Time of Evaluation Date of Evaluation: 03/26/17 Time of Evaluation: 08:00 - Subjective Subjective: pt is seen and examined at the bed side , looking anxious , seen by urologist and id , no n,v,d Objective - Vital Signs/Intake and Output Vital Signs (last 24 hours): Temp Pulse Resp BP Pulse Ox 97.9 F 67 20 115/61 97 03/27/17 00:00 03/27/17 00:00 03/27/17 00:00 03/27/17 00:00 03/27/17 00:00 Intake and Output: 03/26/17 03/27/17 18:59 06:59 Output Total 500 Balance -500 - Medications Medications: Current Medications Famotidine (Pepcid) 40 mg PO DAILY [facility] Last Admin: 03/26/17 09:04 Dose: 40 mg Hydromorphone HCl (Dilaudid) 0.5 mg IVP Q6H PRN PRN Reason: Pain, Mild (1-3) Last Admin: 03/27/17 02:02 Dose: 0.5 mg Tigecycline 50 mg/ Sodium (Chloride) 100 mls @ 100 mls/hr IVPB Q12H [facility] Last Admin: 03/27/17 00:00 Dose: 100 mls/hr Lactulose (Enulose) 30 gm PO DAILY [facility] Last Admin: 03/26/17 09:02 Dose: Not Given Zolpidem Tartrate (Ambien) 5 mg PO HS PRN PRN Reason: Insomnia Last Admin: 03/26/17 22:19 Dose: 5 mg - Labs Labs: 03/26/17 06:22 03/26/17 06:22 PT 13.7 SECONDS (9.7-12.2) H 03/19/17 01:34 INR 1.2 03/19/17 01:34 APTT 30 SECONDS (21-34) 03/19/17 01:34 - Constitutional Appears: Well - Head Exam Head Exam: ATRAUMATIC, NORMAL INSPECTION, NORMOCEPHALIC - Eye Exam Eye Exam: EOMI, Normal appearance, PERRL Pupil Exam: NORMAL ACCOMODATION, PERRL - ENT Exam ENT Exam: Mucous Membranes Moist, Normal Exam - Neck Exam Neck Exam: Full ROM, Normal Inspection. absent: Lymphadenopathy - Respiratory Exam Respiratory Exam: Clear to Ausculation Bilateral, NORMAL BREATHING PATTERN - Cardiovascular Exam Cardiovascular Exam: REGULAR RHYTHM, +S1, +S2. absent: Murmur - GI/Abdominal Exam GI & Abdominal Exam: Soft, Normal Bowel Sounds. absent: Tenderness - Rectal Exam Rectal Exam: NORMAL INSPECTION - Exam Exam: Circumcision, NORMAL INSPECTION External exam: NORMAL EXTERNAL EXAM Speculum exam: NORMAL SPECULUM EXAM Bimanual exam: NORMAL BIMANUAL EXAM - Extremities Exam Extremities Exam: Full ROM, Normal Capillary Refill, Normal Inspection. absent : Joint Swelling, Pedal Edema - Back Exam Back Exam: NORMAL INSPECTION - Neurological Exam Neurological Exam: Alert, Awake, CN II-XII Intact, Normal Gait, Oriented x3 - Psychiatric Exam Psychiatric exam: Normal Affect, Normal Mood - Skin Skin Exam: Dry, Intact, Normal Color, Warm Assessment and Plan - Assessment and Plan (Free Text) Assessment: AFEBRILE,h/o pancreatic ca , getting chemo from dr bui ,uti S/P Infante REMOVAL BY DR. MCKENZIE THIS A.M. PATIENT AWAITING VOIDING. pATIENT ENCOURAGED TO DRINK MORE WATER AND IF HE DOESN'T VOID WILL NEED Infante AGAIN. pATIENT GIVEN A PITCHER OF WATER TO DRINK. PRESENT. CASE DISCUSSED WITH THE NURSING STAFF/FLEECER AND . CONTINUE IV TYGACIL FOR NOW X3 DAYS fOLLOW-UP REPEAT ua URINE CULTURES. IF STABLE MAY BE ABLE TO DISCHARGE ON friday ON BY MOUTH BACTRIM 1 DOUBLE STRENGTH TWICE A DAY FOR 5 DAYS. d/d with id , dr le , and pt daughter , all qs answered
--- NOTE | 2017-03-27 12:05 | CP.PCM.CON ---
<Manoj Glasgow D - Last Filed: 03/27/17 17:03> History of Present Illness - History of Present Illness History of Present Illness: SURGERY CONSULT NOTE FOR DR. DOMINGUEZ 76M with pmh of metastatic pancreatic cancer in which he getting chemotherapy for outpatient. Patient began complaining of left groin pain couple of days ago and was found to have a hernia. He states he pain is resolved and he does not have any currently. He states he is tolerating diet, denies nausea/vomiting, fevers/chills. Recently he has not had trouble with passing stool. Last bowel movement was this morning and was normal. He states he has been going 3 times daily this weeks. PMH: DM, HN, Pancreatic cancer PSH: poss I&D of perianal abscess in 2009 as described by patient Social: denies tobacco, alcohol illicit drugs Allergies: NKDA Past Patient History - Past Medical History & Family History Past Medical History?: Yes - Past Social History Smoking Status: Former Smoker - CARDIAC Hx Congestive Heart Failure: Yes Hx Hypertension: Yes - PULMONARY Hx Chronic Obstructive Pulmonary Disease (COPD): Yes - NEUROLOGICAL Hx Neurological Disorder: No - HEENT Hx HEENT Problems: No - RENAL Hx Chronic Kidney Disease: No - ENDOCRINE/METABOLIC Hx Diabetes Mellitus Type 2: Yes - HEMATOLOGICAL/ONCOLOGICAL Hx Blood Disorders: Yes Hx Blood Transfusions: No Hx Blood Transfusion Reaction: No Hx Cancer: Yes (METS.(LIVER MASS, LUNG MASS), CURRENTLY DOING CHEMOTHERAPY) Other/Comment: LIVER CA - INTEGUMENTARY Hx Dermatological Problems: No - MUSCULOSKELETAL/RHEUMATOLOGICAL Hx Arthritis: Yes (KAREEM) - GASTROINTESTINAL Hx Gastrointestinal Disorders: Yes Other/Comment: HX: LIVER MASS. HX: WEIGHT LOSS. HX: ABDOMINAL PAIN - GENITOURINARY/GYNECOLOGICAL Hx Genitourinary Disorders: No - PSYCHIATRIC Hx Substance Use: No - SURGICAL HISTORY Hx Surgeries: Yes Hx Angiogram: Yes Hx Angioplasty: Yes Hx Vascular Surgery: Yes (STENT IN LEGS) Other/Comment: HX: I & D ABSCESS IN GROIN - ANESTHESIA Hx Anesthesia: Yes Hx Anesthesia Reactions: No Hx Malignant Hyperthermia: No Meds Allergies/Adverse Reactions: Allergies Allergy/AdvReac Type Severity Reaction Status Date / Time No Known Allergies Allergy Verified 03/17/17 16:07 - Medications Medications: Current Medications Famotidine (Pepcid) 40 mg PO DAILY [facility] Last Admin: 03/27/17 10:57 Dose: Not Given Hydromorphone HCl (Dilaudid) 0.5 mg IVP Q6H PRN PRN Reason: Pain, Mild (1-3) Last Admin: 03/27/17 08:12 Dose: 0.5 mg Tigecycline 50 mg/ Sodium (Chloride) 100 mls @ 100 mls/hr IVPB Q12H [facility] Last Admin: 03/27/17 11:51 Dose: 100 mls/hr Lactulose (Enulose) 30 gm PO DAILY [facility] Last Admin: 03/27/17 10:57 Dose: Not Given Tramadol HCl (Ultram) 25 mg PO TID [facility] Zolpidem Tartrate (Ambien) 5 mg PO HS PRN PRN Reason: Insomnia Last Admin: 03/26/17 22:19 Dose: 5 mg Physical Exam - Constitutional Appears: Non-toxic, No Acute Distress - Head Exam Head Exam: ATRAUMATIC - Eye Exam Eye Exam: EOMI, PERRL - ENT Exam ENT Exam: Mucous Membranes Moist - Respiratory Exam Respiratory Exam: Clear to Auscultation Bilateral, NORMAL BREATHING PATTERN - Cardiovascular Exam Cardiovascular Exam: REGULAR RHYTHM, +S1, +S2 - GI/Abdominal Exam GI & Abdominal Exam: Distended, Soft. absent: Firm, Guarding, Rebound, Rigid, Tenderness Additional comments: left inguinal hernia noted, non tender to palpation, no redness, reducible - Extremities Exam Extremities exam: Negative for: pedal edema, tenderness - Neurological Exam Neurological exam: Alert, Oriented x3 - Psychiatric Exam Psychiatric exam: Normal Affect, Normal Mood - Skin Skin Exam: Dry, Intact, Warm Results - Vital Signs Recent Vital Signs: Last Vital Signs Temp 98.3 F 03/27/17 07:53 Pulse 72 03/27/17 07:53 Resp 20 03/27/17 07:53 BP 123/72 03/27/17 07:53 Pulse Ox 97 03/27/17 07:53 - Labs Result Diagrams: 03/26/17 06:22 03/26/17 06:22 Labs: Laboratory Results - last 24 hr 03/26/17 03/26/17 03/26/17 11:11 13:24 16:14 POC Glucose (mg/dL) 261 H 183 H Urine Color Yellow Urine Clarity Hazy Urine pH 5.0 Ur Specific [place] 1.011 Urine Protein Negative Urine Glucose (UA) Normal Urine Ketones Negative Urine Blood 2+ H Urine Nitrate Negative Urine Bilirubin Negative Urine Urobilinogen Normal Ur Leukocyte Esterase 2+ H Urine WBC (Auto) 14 H Urine RBC (Auto) 15 H Ur Squamous Epith Cells < 1 Urine Bacteria Rare 03/26/17 03/27/17 21:22 11:19 POC Glucose (mg/dL) 134 H 239 H Urine Color Urine Clarity Urine pH Ur Specific [place] Urine Protein Urine Glucose (UA) Urine Ketones Urine Blood Urine Nitrate Urine Bilirubin Urine Urobilinogen Ur Leukocyte Esterase Urine WBC (Auto) Urine RBC (Auto) Ur Squamous Epith Cells Urine Bacteria Assessment & Plan - Assessment and Plan (Free Text) Assessment: 76M with hx of pancreatic cancer with metastatic disease presents with fluid filled left inguinal hernia US: fluid filled left inguinal hernia, no bowel noted Plan: - Continue management as per Oncology/Urology - No surgical intervention at this time Discussed With Dr. Angelica Glasgow, PGY2 <Wes Dominguez - Last Filed: 03/29/17 17:42> Meds - Medications Medications: Current Medications Docusate Sodium (Colace) 100 mg PO BID [facility] Last Admin: 03/29/17 09:11 Dose: 100 mg Famotidine (Pepcid) 40 mg PO DAILY [facility] Last Admin: 03/29/17 09:13 Dose: 40 mg Hydromorphone HCl (Dilaudid) 0.5 mg IVP Q6H PRN PRN Reason: Pain, Mild (1-3) Last Admin: 03/29/17 13:48 Dose: 0.5 mg Tigecycline 50 mg/ Sodium (Chloride) 100 mls @ 100 mls/hr IVPB Q12H [facility] Last Admin: 03/29/17 10:30 Dose: 100 mls/hr Lactulose (Enulose) 30 gm PO DAILY [facility] Last Admin: 03/29/17 09:17 Dose: Not Given Tamsulosin HCl (Flomax) 0.4 mg PO DAILY [facility] Last Admin: 03/29/17 09:11 Dose: 0.4 mg Tramadol HCl (Ultram) 25 mg PO TID [facility] Last Admin: 03/29/17 13:54 Dose: Not Given Zolpidem Tartrate (Ambien) 5 mg PO HS PRN PRN Reason: Insomnia Last Admin: 03/28/17 23:18 Dose: 5 mg Results - Vital Signs Recent Vital Signs: Last Vital Signs Temp 98.6 F 03/29/17 15:00 Pulse 84 03/29/17 15:00 Resp 20 03/29/17 15:00 BP 144/71 03/29/17 15:00 Pulse Ox 96 03/29/17 15:00 - Labs Result Diagrams: 03/26/17 06:22 03/26/17 06:22 Labs: Laboratory Results - last 24 hr 03/28/17 03/28/17 03/29/17 17:22 21:20 07:33 POC Glucose (mg/dL) 195 H 183 H 108 03/29/17 03/29/17 11:22 16:23 POC Glucose (mg/dL) 225 H 184 H Attending/Attestation - Attestation I have personally seen and examined this patient.: Yes I have fully participated in the care of the patient.: Yes I have reviewed all pertinent clinical information: Yes Notes (Text): 03/29/17 17:40 Pt was seen and examined at bedside Agree with above note and assessment Pt with Stage 4 Pancreatic cancer and Left inguinal hernia Inguinal hernia is small and does not need any surgical intervention at present C.w current mx F/U with urology for Retention of urine Hernia belt. Plan d.w pt in detail Risk and benefit explained in detail.
[2017-03-27] MEDS: Tramadol 25 mg PO SCH ×2 (15:58→17:57)
--- NOTE | 2017-03-27 22:24 | CP.PCM.PN ---
Subjective - Date & Time of Evaluation Date of Evaluation: 03/27/17 Time of Evaluation: 22:24 - Subjective Subjective: AFEBRILE, S/P Infante REMOVAL BY DR. MCKENZIE THIS A.M. PATIENT VOIDING. SEEN BY SURGERY TODAY FOR LEFT GROIN SWELLING-?FLUID-FILLED INGUINAL HERNIA AND NOTED CASE DISCUSSED WITH THE NURSING STAFF/ASSEMBLY LINE DRIVER AND . CONTINUE IV TYGACIL FOR NOW. REPEAT URINE CULTURES NEGATIVE GROWTH. IF STABLE MAY BE ABLE TO DISCHARGE ON friday ON BY MOUTH BACTRIM 1 DOUBLE STRENGTH TWICE A DAY FOR 5 DAYS. Objective - Vital Signs/Intake and Output Vital Signs (last 24 hours): Temp Pulse Resp BP Pulse Ox 98.5 F 75 20 130/76 96 03/27/17 15:00 03/27/17 15:00 03/27/17 15:00 03/27/17 15:00 03/27/17 15:00 Intake and Output: 03/27/17 03/28/17 18:59 06:59 Intake Total 460 Output Total 200 Balance 260 - Medications Medications: Current Medications Famotidine (Pepcid) 40 mg PO DAILY [facility] Last Admin: 03/27/17 10:57 Dose: Not Given Hydromorphone HCl (Dilaudid) 0.5 mg IVP Q6H PRN PRN Reason: Pain, Mild (1-3) Last Admin: 03/27/17 08:12 Dose: 0.5 mg Tigecycline 50 mg/ Sodium (Chloride) 100 mls @ 100 mls/hr IVPB Q12H [facility] Last Admin: 03/27/17 11:51 Dose: 100 mls/hr Lactulose (Enulose) 30 gm PO DAILY [facility] Last Admin: 03/27/17 10:57 Dose: Not Given Tamsulosin HCl (Flomax) 0.4 mg PO DAILY [facility] Last Admin: 03/27/17 12:28 Dose: 0.4 mg Tramadol HCl (Ultram) 25 mg PO TID [facility] Last Admin: 03/27/17 17:57 Dose: 25 mg Zolpidem Tartrate (Ambien) 5 mg PO HS PRN PRN Reason: Insomnia Last Admin: 03/26/17 22:19 Dose: 5 mg - Labs Labs: 03/26/17 06:22 03/26/17 06:22 PT 13.7 SECONDS (9.7-12.2) H 03/19/17 01:34 INR 1.2 03/19/17 01:34 APTT 30 SECONDS (21-34) 03/19/17 01:34 - Constitutional Appears: No Acute Distress - Head Exam Head Exam: NORMAL INSPECTION - Eye Exam Eye Exam: EOMI, PERRL - ENT Exam ENT Exam: Normal Oropharynx - Neck Exam Neck Exam: Normal Inspection - Respiratory Exam Respiratory Exam: Decreased Breath Sounds - Cardiovascular Exam Cardiovascular Exam: REGULAR RHYTHM - GI/Abdominal Exam GI & Abdominal Exam: Soft, Normal Bowel Sounds. absent: Guarding - Extremities Exam Extremities Exam: Pedal Edema. absent: Calf Tenderness - Neurological Exam Neurological Exam: Alert, Awake, CN II-XII Intact, Oriented x3 - Psychiatric Exam Psychiatric exam: Normal Mood - Skin Skin Exam: Warm Assessment and Plan (1) Abdominal pain Status: Acute (2) UTI (urinary tract infection) Status: Acute (3) Lower obstructive uropathy Status: Acute (4) Liver metastasis Status: Acute (5) Diabetes Status: Chronic (6) Metastatic cancer Status: Acute
--- NOTE | 2017-03-28 07:34 | PN ---
DATE: 03/27/2017 SUBJECTIVE: The patient is 76 years old male. The patient was seen on 03/27/2017 at the bedside complaining about pain in the left groin area and was not happy for his urinary system. His Gatica catheter was removed yesterday. Since that time, he has a feeling of fullness and passing the urine, but not the same , Pain in the left groin area. No nausea, vomiting, or diarrhea. No hematuria or hematochezia. No swelling of the leg. No chest pain. No palpitations. No headache. No dizziness. PHYSICAL EXAMINATION: VITAL SIGNS: Temperature 98.4, pulse rate 84, blood pressure 122/54, and respiratory rate 20. HEENT: Head is normocephalic and atraumatic. Eyes; PERRLA. Extraocular muscles intact. Conjunctivae clear. Nose patent. Mucous membranes moist. NECK: Supple. No carotid bruit. No JVD or thyromegaly. CHEST: Bilaterally symmetrical. HEART: S1 and S2 positive. LUNGS: Clear to auscultation. ABDOMEN: Soft. Bowel sounds are present. No organomegaly. EXTREMITIES: No edema. No cyanosis. NEUROLOGIC: The patient is awake and alert. Moving all four extremities. No focal deficits. MEDICATIONS: Ambien, Dilaudid, lactulose, Flomax, Pepcid, tigecycline and tramadol. LABORATORY DATA: WBC 4.9, hemoglobin 9.5, hematocrit 28.9 and platelets 258. Glucose 157 and 155. ASSESSMENT AND PLAN: Mr. Raudel Jones is 76 years old male with uncontrolled diabetes mellitus type 2; hypokalemia, improved; anemia, improving; hematuria; proteinuria and urinary tract infection. Getting antibiotics. Gatica was removed by Dr. Garcia. The patient is seen by the surgery for the left groin swelling, fluid-filled inguinal hernia also noted. Lot of discussion with the nursing staff and the patient's nurse. According to the nurse, he is waiting for the bladder scan. If bladder shows there is urinary retention, then we will pass Gatica catheter. The patient scheduled outpatient. Gastrointestinal and deep venous thrombosis prophylaxis. Repeat labs. We will follow up. Apple Sommer MD IVONNE
[2017-03-28] MEDS: Tramadol 25 mg PO SCH ×3 (10:30→17:38)
[2017-03-28] MEDS: HYDROmorphone 0.5 mg/0.5 ml ISec IVP PRN (16:27)
--- NOTE | 2017-03-28 22:12 | PN ---
SUBJECTIVE: The patient seen and examined on the bedside. Looking comfortable. No nausea, vomiting, or diarrhea. No hematochezia. No swelling of the leg. No chest pain. No palpitations. No headache. No dizziness. PHYSICAL EXAMINATION: VITAL SIGNS: Temperature 98.7, pulse 79, blood pressure 137/63, and respiratory rate 20. HEENT: Head is normocephalic and atraumatic. Eyes: PERRLA. Extraocular muscles intact. Conjunctivae clear. Nose patent. Mucous membranes moist. NECK: Supple. No carotid bruit. No JVD or thyromegaly. CHEST: Bilaterally symmetrical. HEART: S1 and S2 positive. LUNGS: Clear to auscultation. ABDOMEN: Soft. Bowel sounds are present. No organomegaly. EXTREMITIES: No edema. No cyanosis. NEUROLOGIC: The patient is awake and alert. Moving all four extremities. No focal deficits. MEDICATIONS: Ambien, Dilaudid, lactulose, Flomax, Pepcid, MS, tigecycline and tramadol. LABORATORY DATA: White blood cells 4.9, hemoglobin 9.7, hematocrit 28.9 and platelets 258. Glucose 195, 157, 155, 239. ASSESSMENT AND PLAN: The patient is a 76-year-old male with hematuria, urinary tract infection, leukopenia, anemia, came with urinary tract infection, urinary retention, obstructive uropathy. Gatica was removed by Dr. Garcia, but the patient was not void completely. Left groin swelling, fluid-filled inguinal hernia. Surgical consulted was called. Discussion done with the patient's daughter. Urine cultures are negative. Liver metastasis, diabetes mellitus, metastatic cancer, abdominal pain, urinary tract infection, getting antibiotics by Dr. Timi Nix for MRSA. History of pancreatic cancer, no surgical intervention at this time as per Dr. Dominguez. Fluid-filled inguinal hernia. No bowel obstruction. GI and DVT prophylaxis. Repeat labs. Apple Sommer MD
--- NOTE | 2017-03-28 23:25 | CP.PCM.PN ---
Subjective - Date & Time of Evaluation Date of Evaluation: 03/28/17 Time of Evaluation: 23:24 - Subjective Subjective: AFEBRILE, S/P Infante REMOVAL BY DR. MCKENZIE . PATIENT VOIDING. SEEN BY SURGERY FOR LEFT GROIN SWELLING-?FLUID-FILLED INGUINAL HERNIA AND NOTED. ONLY CONSERVATIVE TREATMENT. CASE DISCUSSED WITH THE NURSING STAFF/SHANK BREAKER AND . CONTINUE IV TYGACIL FOR NOW. REPEAT URINE CULTURES NEGATIVE GROWTH. IF STABLE MAY BE ABLE TO DISCHARGE ON friday ON BY MOUTH BACTRIM 1 DOUBLE STRENGTH TWICE A DAY FOR 5 DAYS. Objective - Vital Signs/Intake and Output Vital Signs (last 24 hours): Temp Pulse Resp BP Pulse Ox 98.7 F 79 20 133/66 95 03/28/17 16:00 03/28/17 16:00 03/28/17 16:00 03/28/17 16:00 03/28/17 16:00 Intake and Output: 03/28/17 03/29/17 18:59 06:59 Intake Total 520 Output Total 750 Balance -230 - Medications Medications: Current Medications Famotidine (Pepcid) 40 mg PO DAILY [facility] Last Admin: 03/28/17 10:31 Dose: 40 mg Hydromorphone HCl (Dilaudid) 0.5 mg IVP Q6H PRN PRN Reason: Pain, Mild (1-3) Last Admin: 03/28/17 16:27 Dose: 0.5 mg Tigecycline 50 mg/ Sodium (Chloride) 100 mls @ 100 mls/hr IVPB Q12H [facility] Last Admin: 03/28/17 23:18 Dose: 100 mls/hr Lactulose (Enulose) 30 gm PO DAILY [facility] Last Admin: 03/28/17 10:32 Dose: Not Given Tamsulosin HCl (Flomax) 0.4 mg PO DAILY [facility] Last Admin: 03/28/17 10:32 Dose: 0.4 mg Tramadol HCl (Ultram) 25 mg PO TID [facility] Last Admin: 03/28/17 17:38 Dose: 25 mg Zolpidem Tartrate (Ambien) 5 mg PO HS PRN PRN Reason: Insomnia Last Admin: 03/28/17 23:18 Dose: 5 mg - Labs Labs: 03/26/17 06:22 03/26/17 06:22 PT 13.7 SECONDS (9.7-12.2) H 08/09/17 01:34 INR 1.2 03/19/17 01:34 APTT 30 SECONDS (21-34) 03/19/17 01:34 - Constitutional Appears: No Acute Distress, Chronically Ill - Head Exam Head Exam: NORMAL INSPECTION - Eye Exam Eye Exam: EOMI, PERRL - ENT Exam ENT Exam: Normal Oropharynx - Neck Exam Neck Exam: Normal Inspection - Respiratory Exam Respiratory Exam: Decreased Breath Sounds - Cardiovascular Exam Cardiovascular Exam: REGULAR RHYTHM, +S1 - GI/Abdominal Exam GI & Abdominal Exam: Distended, Soft, Hypoactive Bowel Sounds - Extremities Exam Extremities Exam: Pedal Edema. absent: Calf Tenderness - Neurological Exam Neurological Exam: Awake, CN II-XII Intact, Oriented x3 - Psychiatric Exam Psychiatric exam: Normal Mood - Skin Skin Exam: Normal Color, Warm Assessment and Plan (1) Abdominal pain Status: Acute (2) UTI (urinary tract infection) Status: Acute (3) Lower obstructive uropathy Status: Acute (4) Liver metastasis Status: Acute (5) Diabetes Status: Chronic (6) Metastatic cancer Status: Acute
[2017-03-29] MEDS: Tramadol 25 mg PO SCH ×3 (09:11→18:58)
[2017-03-29] MEDS: HYDROmorphone 0.5 mg/0.5 ml ISec IVP PRN ×2 (13:48→19:50)
--- NOTE | 2017-03-29 21:51 | CP.PCM.PN ---
Subjective - Date & Time of Evaluation Date of Evaluation: 03/29/17 Time of Evaluation: 21:51 - Subjective Subjective: AFEBRILE, S/P Infante REMOVAL BY DR. MCKENZIE . PATIENT VOIDING. states he has HESTANCY AND DIFICULT VOIDING. LEFT GROIN SWELLING-?FLUID-FILLED INGUINAL HERNIA AND NOTED. CASE DISCUSSED WITH THE NURSING STAFF CONTINUE IV TYGACIL FOR NOW. REPEAT URINE CULTURES NEGATIVE GROWTH. Objective - Vital Signs/Intake and Output Vital Signs (last 24 hours): Temp Pulse Resp BP Pulse Ox 98.6 F 84 20 144/71 96 03/29/17 15:00 03/29/17 15:00 03/29/17 15:00 03/29/17 15:00 03/29/17 15:00 Intake and Output: 03/29/17 03/30/17 18:59 06:59 Intake Total 400 Output Total 200 Balance 200 - Medications Medications: Current Medications Docusate Sodium (Colace) 100 mg PO BID [facility] Last Admin: 03/29/17 18:58 Dose: 100 mg Famotidine (Pepcid) 40 mg PO DAILY [facility] Last Admin: 03/29/17 09:13 Dose: 40 mg Hydromorphone HCl (Dilaudid) 0.5 mg IVP Q6H PRN PRN Reason: Pain, Mild (1-3) Last Admin: 03/29/17 19:50 Dose: 0.5 mg Tigecycline 50 mg/ Sodium (Chloride) 100 mls @ 100 mls/hr IVPB Q12H [facility] Last Admin: 03/29/17 10:30 Dose: 100 mls/hr Lactulose (Enulose) 30 gm PO DAILY [facility] Last Admin: 03/29/17 09:17 Dose: Not Given Tamsulosin HCl (Flomax) 0.4 mg PO DAILY [facility] Last Admin: 03/29/17 09:11 Dose: 0.4 mg Tramadol HCl (Ultram) 25 mg PO TID [facility] Last Admin: 03/29/17 18:58 Dose: Not Given Zolpidem Tartrate (Ambien) 5 mg PO HS PRN PRN Reason: Insomnia Last Admin: 03/28/17 23:18 Dose: 5 mg - Labs Labs: 03/26/17 06:22 03/26/17 06:22 PT 13.7 SECONDS (9.7-12.2) H 03/19/17 01:34 INR 1.2 03/19/17 01:34 APTT 30 SECONDS (21-34) 03/19/17 01:34 - Constitutional Appears: No Acute Distress, Chronically Ill - Head Exam Head Exam: NORMAL INSPECTION - Eye Exam Eye Exam: EOMI, PERRL - ENT Exam ENT Exam: Normal Oropharynx - Neck Exam Neck Exam: Normal Inspection - Respiratory Exam Respiratory Exam: Clear to Ausculation Bilateral - Cardiovascular Exam Cardiovascular Exam: REGULAR RHYTHM, +S1, +S2 - GI/Abdominal Exam GI & Abdominal Exam: Distended, Soft, Normal Bowel Sounds - Extremities Exam Extremities Exam: Normal Capillary Refill, Pedal Edema. absent: Calf Tenderness - Neurological Exam Neurological Exam: Awake, Oriented x3 - Psychiatric Exam Psychiatric exam: Normal Mood - Skin Skin Exam: Normal Color, Warm Assessment and Plan (1) Abdominal pain Status: Acute (2) UTI (urinary tract infection) Assessment & Plan: CONTACT ISOLATION ON iv tYGACIL 100 MG LOADING DOSE FOLLOWED BY 50 MG EVERY 12 HOURLY TO COVER FOR MRSA. 03/24/17 F/U BMP,LIVER PROFILE CPK. CBC W DIFF . Status: Acute (3) Lower obstructive uropathy Status: Acute (4) Liver metastasis Status: Acute (5) Diabetes Status: Chronic (6) Metastatic cancer Status: Acute
--- NOTE | 2017-03-30 07:50 | PN ---
SUBJECTIVE: The patient is a 76-year-old male. The patient is seen and examined at the bedside, passing urine, but not completely emptying his bladder. He is under care of Dr. Garcia, urologist. The patient has multiple times insertion and removal of the Gatica catheter. Now, finally, the plan is that the patient will go on Friday for a procedure. No nausea, vomiting, or diarrhea. No hematuria or hematochezia. No headache and no dizziness. No chest pain or palpitations. PHYSICAL EXAMINATION VITAL SIGNS: Temperature is 98.6, pulse 84, blood pressure 144/74, and respiratory rate 20. HEENT: Head: Normocephalic and atraumatic. Eyes: PERRLA, extraocular muscles intact, conjunctivae are clear. Nose patent. Mucous membranes moist. NECK: Supple. No carotid bruit. No JVD or thyromegaly. CHEST: Bilaterally symmetrical. HEART: S1 and S2 positive. LUNGS: Clear to auscultation. ABDOMEN: Soft. Bowel sounds are present. No organomegaly. EXTREMITIES: No edema. No cyanosis. NEUROLOGIC: The patient is awake and alert. Moving all four extremities. No focal deficits. MEDICATIONS: Ambien, Colace, Dilaudid, lactulose, Flomax, Pepcid, tetracycline, and tramadol. LABORATORY DATA: White blood cell 4.9, hemoglobin 9.7, hematocrit 28.9, platelets 258. Glucose 184 to 225. ASSESSMENT AND PLAN: The patient is a 76-year-old male with multiple medical problems, has urinary problem, urologist is on the case, urinary tract infection, has inguinal hernia, fluid-filled cavity, seen by the surgeon and the plan is conservative treatment. History of anemia, lower abdominal pain, lower obstructive uropathy, liver metastasis, diabetes mellitus, metastatic cancer. Get him IV antibiotics. Seen by Dr. Angelica Mejia, surgeon, Dr. Garcia and Dr. Boyd Capellan. GI and DVT prophylaxis. Repeat labs. We will follow. Apple Sommer MD
[2017-03-30] MEDS: Tramadol 25 mg PO SCH ×3 (10:00→18:50)
[2017-03-30] MEDS: HYDROmorphone 0.5 mg/0.5 ml ISec IVP PRN ×2 (10:07→20:03)
[2017-03-30 23:12] LABS: RBC URINE 2 /hpf (0-3); TRANSITIONAL EPITHIAL < 1 /hpf (0-3); URINE BACTERIA OCC (<OCC); URINE BILIRUBIN NEGATIVE (NEGATIVE); URINE BLOOD NEGATIVE (NEGATIVE); URINE CALCIUM OXALATE CRYSTALS MOD /hpf (<OCC); URINE COLOR Amber (YELLOW); URINE GLUCOSE (UA) NORMAL (Normal); URINE KETONE NEGATIVE (NEGATIVE); URINE LEUKOCYTE ESTERASE 1+ Leu/uL (Negative); URINE PROTEIN NEGATIVE (NEGATIVE); URINE UROBILINOGEN NORMAL mg/dL (0.2-1.0); WBC URINE 12 /hpf (0-5)
[2017-03-31] MEDS: Tramadol 25 mg PO SCH ×3 (08:30→18:23)
[2017-03-31] MEDS: HYDROmorphone 0.5 mg/0.5 ml ISec IVP PRN ×2 (10:31→21:33)
--- NOTE | 2017-03-31 13:10 | PN ---
DATE: 03/30/2017 SUBJECTIVE: The patient is 76-year-old male. The patient was seen and examined at the bedside on 03/30/2017, feeling better, problem with voiding, Gatica is removed, trying to void, but stating that he has hesitancy and difficulty voiding, still has left groin swelling, fluid filled, surgery and urologist is on the case, no fever, no chills, no nausea, vomiting, diarrhea, no hematuria, hematochezia, no headache, no dizziness. PHYSICAL EXAMINATION: VITAL SIGNS: Temperature 98.3, pulse 99, blood pressure 169/83, respiratory rate 20. HEENT: Head is normocephalic and atraumatic. Eyes; PERRLA. Extraocular muscles intact. Conjunctivae clear. Nose patent. Mucous membranes moist. NECK: Supple. No carotid bruit. No JVD or thyromegaly. CHEST: Bilaterally symmetrical. HEART: S1 and S2 positive. LUNGS: Clear to auscultation. ABDOMEN: Soft. Bowel sounds are present. No organomegaly. EXTREMITIES: No edema. No cyanosis. NEUROLOGIC: The patient is awake and alert. Moving all four extremities. No focal deficits. MEDICATIONS: Ambien, Colace, Dilaudid, lactulose, Flomax, Pepcid, tigecycline, and tramadol. LABORATORY DATA: We do not have recent labs today, but I reviewed old labs. ASSESSMENT AND PLAN: Mr. Raudel Jones is a 76-year-old male with anemia, hyperglycemia, came with abdominal pain and urinary tract infection with methicillin-resistant staphylococcus aureus, he is on isolation and getting Tygacil by infectious disease Dr. Capellan. We will followup. Keep on followup win BNP and liver profile, CPT and CBC, lower obstructive uropathy, liver metastasis. The patient called just Dr. Ortiz, left-sided fluid filled inguinal cavity as per surgery, no surgery. GI and DVT prophylaxis. Repeat labs. Apple Sommer MD
--- NOTE | 2017-03-31 14:06 | CP.PCM.PN ---
Subjective - Date & Time of Evaluation Date of Evaluation: 03/31/17 Time of Evaluation: 14:06 - Subjective Subjective: afebrile, HESITANCY IN VOIDING. PATIENT WENT FOR CYSTOSCOPY TODAY ? URETHRAL STRICTURE. oN iv tYGACIL. CASE DISCUSSED WITH BAKED AND GRAPHITE INSPECTOR. MS DUNCAN.. Objective - Vital Signs/Intake and Output Vital Signs (last 24 hours): Temp Pulse Resp BP Pulse Ox 97.6 F 95 H 20 136/79 97 03/31/17 08:19 03/31/17 08:19 03/31/17 08:19 03/31/17 08:19 03/31/17 08:19 Intake and Output: 03/31/17 03/31/17 06:59 18:59 Intake Total 700 Output Total 200 Balance 500 - Medications Medications: Current Medications Docusate Sodium (Colace) 100 mg PO BID [facility] Last Admin: 03/31/17 10:33 Dose: 100 mg Famotidine (Pepcid) 40 mg PO DAILY [facility] Last Admin: 03/31/17 10:41 Dose: 40 mg Hydromorphone HCl (Dilaudid) 0.5 mg IVP Q6H PRN PRN Reason: Pain, Mild (1-3) Last Admin: 03/31/17 10:31 Dose: 0.5 mg Tigecycline 50 mg/ Sodium (Chloride) 100 mls @ 100 mls/hr IVPB Q12H [facility] Last Admin: 03/31/17 10:36 Dose: 100 mls/hr Lactulose (Enulose) 30 gm PO DAILY [facility] Last Admin: 03/31/17 10:41 Dose: Not Given Tamsulosin HCl (Flomax) 0.4 mg PO BID [facility] Last Admin: 03/31/17 09:00 Dose: 0.4 mg Tramadol HCl (Ultram) 25 mg PO TID [facility] Last Admin: 03/31/17 08:30 Dose: 25 mg Zolpidem Tartrate (Ambien) 5 mg PO HS PRN PRN Reason: Insomnia Last Admin: 03/30/17 21:50 Dose: 5 mg - Labs Labs: 03/26/17 06:22 03/26/17 06:22 PT 13.7 SECONDS (9.7-12.2) H 03/19/17 01:34 INR 1.2 03/19/17 01:34 APTT 30 SECONDS (21-34) 03/19/17 01:34 - Constitutional Appears: No Acute Distress, Cachectic, Chronically Ill - Head Exam Head Exam: NORMAL INSPECTION - Eye Exam Eye Exam: PERRL - ENT Exam ENT Exam: Normal Oropharynx - Neck Exam Neck Exam: Normal Inspection - Respiratory Exam Respiratory Exam: Clear to Ausculation Bilateral - Cardiovascular Exam Cardiovascular Exam: REGULAR RHYTHM, +S1, +S2 - GI/Abdominal Exam GI & Abdominal Exam: Soft, Normal Bowel Sounds. absent: Tenderness (POSITIVE ASCITES.) - Extremities Exam Extremities Exam: Normal Capillary Refill, Pedal Edema. absent: Calf Tenderness - Neurological Exam Neurological Exam: Awake, CN II-XII Intact, Oriented x3 - Psychiatric Exam Psychiatric exam: Normal Mood - Skin Skin Exam: Normal Color, Warm Assessment and Plan (1) Abdominal pain Status: Acute (2) UTI (urinary tract infection) Assessment & Plan: REPEAT URINE CULTURES 03/26/17 -VE GROWTH.. pATIENT ON iv tYGACIL FOR PROCEDURE TODAY CASE DISCUSSED WITH BAKED AND GRAPHITE INSPECTOR/ STAFF. FOLLOW-UP REPEAT URINE CULTURES OF 03/30. wHEN CLEARED BY -SWITCHED TO BY MOUTH bACTRIM 1 DOUBLE STRENGTH TWICE A DAY FOR 5 DAYS. Status: Acute (3) Lower obstructive uropathy Status: Acute (4) Liver metastasis Status: Acute (5) Diabetes Status: Chronic (6) Metastatic cancer Status: Acute
[2017-03-31] MEDS ORDERED: Lidocaine 2% Jelly (Uro-Jet) ONE ×2 (16:22→16:53)
[2017-03-31] MEDS ORDERED: Propofol 10 mg/ml Inj (20 ML) ONE (16:26)
--- NOTE | 2017-03-31 16:49 | PCM.URO ---
Urology Progress Note - Subjective Abdominal Pain: Yes Dysuria: Yes (stricture . retention ) - Objective Lab Studies: Reviewed (see cystoscopy note to be dictated) Lab Results Last 24 Hours: Laboratory Results - last 24 hr 03/30/17 03/30/17 03/30/17 07:13 16:48 21:48 POC Glucose (mg/dL) 154 H 216 H 150 H Urine Color Urine Clarity Urine pH Ur Specific Colton Urine Protein Urine Glucose (UA) Urine Ketones Urine Blood Urine Nitrate Urine Bilirubin Urine Urobilinogen Ur Leukocyte Esterase Urine WBC (Auto) Urine RBC (Auto) Ur Squamous Epith Cells Ur Transition Epith Cell Calcium Oxalate Crystal Urine Bacteria 03/30/17 03/31/17 03/31/17 23:05 07:56 11:04 POC Glucose (mg/dL) 117 H 171 H Urine Color Therese Urine Clarity Hazy Urine pH 5.0 Ur Specific Colton 1.019 Urine Protein Negative Urine Glucose (UA) Normal Urine Ketones Negative Urine Blood Negative Urine Nitrate Negative Urine Bilirubin Negative Urine Urobilinogen Normal Ur Leukocyte Esterase 1+ H Urine WBC (Auto) 12 H Urine RBC (Auto) 2 Ur Squamous Epith Cells 1 Ur Transition Epith Cell < 1 Calcium Oxalate Crystal Mod H Urine Bacteria Occ H Intake & Output: Intake & Output 03/30/17 03/31/17 03/31/17 18:59 06:59 18:59 Intake Total 700 250 Output Total 200 200 Balance 500 50 Intake: Intake, IV Amount 100 100 Right Forearm 100 100 Oral 600 150 Output: Urine 200 200 Urethral (Gatica) 200 Urine, Voided 200 Other: # Voids Urethral (Gatica) 3 Urine, Voided 1 # Bowel Movements 0 Vital Signs: Vital Signs - 24 hr 03/31/17 03/31/17 00:00 08:19 Temperature 98.1 F 97.6 F Pulse Rate 71 95 H Respiratory 20 20 Rate Blood Pressure 131/70 136/79 O2 Sat by Pulse 95 97 Oximetry
[2017-03-31] MEDS ORDERED: Lactated Ringer's 1,000 ML IV ONE (16:50)
[2017-03-31 19:43] LABS: BASO # 0.1 K/uL (0.0-0.2); BASO % 1.1 % (0.0-2.0); EOS % 0.7 % (0.0-4.0); LYMPH # 0.8 K/uL (1.0-4.3); LYMPH % 12.8 % (20.0-40.0); MEAN CELL VOLUME 102.8 fL (80.0-94.0); MEAN CORPUSCULAR HEMOGLOBIN 33.8 pg (27.0-31.0); MEAN CORPUSCULAR HGB CONC 32.9 g/dL (33.0-37.0); MEAN PLATELET VOLUME 8.6 fL (7.2-11.7); MONO # 0.6 K/uL (0.0-0.8); MONO % 9.8 % (0.0-10.0)
[2017-03-31 19:58] LABS: CHLORIDE 99 mmol/L (98-107); POTASSIUM 3.9 mmol/L (3.6-5.2); SODIUM 134 mmol/L (132-148)
[2017-03-31 20:01] LABS: BLOOD UREA NITROGEN 22 mg/dL (9-20); CARBON DIOXIDE 29 mmol/L (22-30); GFR AFRICAN-AMERICAN > 60; GLUCOSE,RANDOM 132 mg/dL (75-110)
[2017-03-31 20:02] LABS: CALCIUM 8.4 mg/dl (8.6-10.4)
--- NOTE | 2017-04-01 02:41 | PN ---
DATE: 03/31/2017 SUBJECTIVE: The patient is 76 years old male. The patient was seen and examined on the bedside. got procedure by Dr. Garcia, cystoscopy; still having bleeding in the urethra, but still is not able to pass the urine when I saw him late evening. No nausea or vomiting. No headache and no dizziness. Still having lower abdominal pain. PHYSICAL EXAMINATION: VITAL SIGNS: Temperature is 98.0, pulse 59, blood pressure 135/81, and respiratory rate 20. HEENT: Head; normocephalic and atraumatic. Eyes; PERRLA. Extraocular muscles intact. Conjunctivae clear. Nose patent. NECK: Supple. No carotid bruit. No JVD or thyromegaly. CHEST: Bilaterally symmetrical. HEART: S1 and S2 positive. LUNGS: Clear to auscultation. ABDOMEN: Soft. Bowel sounds are present. No organomegaly. EXTREMITIES: No edema. No cyanosis. NEUROLOGIC: The patient is awake and alert. Moving all four extremities. No focal deficits. MEDICATIONS: Ambien, Colace, Dilaudid, lactulose, Flomax, Pepcid, tetracycline, and tramadol. LABORATORY DATA: White blood cell 6.0, hemoglobin 11.5, hematocrit 35.0, platelets 294. Sodium 134, potassium 3.9, BUN 22, creatinine 0.8, glucose 174. ASSESSMENT AND PLAN: Mr. Robert Starks is a 76 years old male with anemia, increased BUN, diabetes mellitus, hypocalcemia, urinary tract infection, hematuria, went for cystoscopy today, stricture was opened by Dr. Garcia and also his Gatica's were not put and when I saw the patient last time, he was still bleeding, but no passage of urine, has associated uropathy. Gatica catheter was put many times and voiding trial given, but still patient failed, history of inguinal hernia, water filled cavity. According to surgeon, conservative treatment. His urologist is working on obstructive uropathy. Dr. Boyd Capellan is on the case. GI and DVT prophylaxis. Repeat labs. We will follow. Apple Sommer MD [facility] # [id number] MTDD
[2017-04-01 07:23] LABS: CHLORIDE 101 mmol/L (98-107); POTASSIUM 4.9 mmol/L (3.6-5.2); SODIUM 137 mmol/L (132-148)
[2017-04-01 07:26] LABS: BLOOD UREA NITROGEN 23 mg/dL (9-20); CARBON DIOXIDE 30 mmol/L (22-30); GFR AFRICAN-AMERICAN > 60
[2017-04-01 07:27] LABS: CALCIUM 8.6 mg/dl (8.6-10.4); GLUCOSE,RANDOM 100 mg/dL (75-110)
[2017-04-01 07:38] LABS: HEMATOCRIT 35.7 % (35.0-51.0); MEAN CELL VOLUME 102.3 fL (80.0-94.0); MEAN CORPUSCULAR HGB CONC 32.3 g/dL (33.0-37.0); MEAN PLATELET VOLUME 8.9 fL (7.2-11.7); RED CELL DISTRIBUTION WIDTH 19.7 % (11.5-14.5); WHITE BLOOD COUNT 5.5 K/uL (4.8-10.8)
[2017-04-01] MEDS: HYDROmorphone 0.5 mg/0.5 ml ISec IVP PRN ×2 (08:48→18:00)
[2017-04-01] MEDS: Tramadol 25 mg PO SCH ×3 (09:00→18:34)
--- NOTE | 2017-04-01 09:45 | PCM.URO ---
Urology Progress Note - General General: No Complaints, Tolerating Diet - Subjective Abdominal Pain: No Vomiting: No Voiding Well: Yes (voiding better) Hematuria: No Good Stream: Yes (fair stream) Stone Passed: No Dsypnea: No Chest Pain: No Fever & Chills: No - Objective Lab Studies: Reviewed Lab Results Last 24 Hours: Laboratory Results - last 24 hr 03/30/17 03/31/17 03/31/17 07:13 11:04 18:05 WBC RBC Hgb Hct MCV MCH MCHC RDW Plt Count MPV Neut % (Auto) Lymph % (Auto) Williamson % (Auto) Eos % (Auto) Baso % (Auto) Neut # Lymph # Williamson # Eos # Baso # Sodium Potassium Chloride Carbon Dioxide Anion Gap BUN Creatinine Est GFR ( Amer) Est GFR (Non-Af Amer) POC Glucose (mg/dL) 154 H 171 H 137 H Random Glucose Calcium 03/31/17 03/31/17 03/31/17 19:37 19:37 21:02 WBC 6.0 RBC 3.40 L Hgb 11.5 L Hct 35.0 MCV 102.8 H MCH 33.8 H MCHC 32.9 L RDW 20.0 H Plt Count 294 MPV 8.6 Neut % (Auto) 75.6 H Lymph % (Auto) 12.8 L Williamson % (Auto) 9.8 Eos % (Auto) 0.7 Baso % (Auto) 1.1 Neut # 4.5 Lymph # 0.8 L Williamson # 0.6 Eos # 0.0 Baso # 0.1 Sodium 134 Potassium 3.9 Chloride 99 Carbon Dioxide 29 Anion Gap 11 BUN 22 H Creatinine 0.8 Est GFR ( Amer) > 60 Est GFR (Non-Af Amer) > 60 POC Glucose (mg/dL) 174 H Random Glucose 132 H Calcium 8.4 L 04/01/17 04/01/17 04/01/17 06:52 06:52 07:47 WBC 5.5 RBC 3.49 L Hgb 11.5 L Hct 35.7 MCV 102.3 H MCH 33.0 H MCHC 32.3 L RDW 19.7 H Plt Count 268 MPV 8.9 Neut % (Auto) Lymph % (Auto) Williamson % (Auto) Eos % (Auto) Baso % (Auto) Neut # Lymph # Williamson # Eos # Baso # Sodium 137 Potassium 4.9 Chloride 101 Carbon Dioxide 30 Anion Gap 11 BUN 23 H Creatinine 0.8 Est GFR ( Amer) > 60 Est GFR (Non-Af Amer) > 60 POC Glucose (mg/dL) 113 H Random Glucose 100 Calcium 8.6 Intake & Output: Intake & Output 03/31/17 04/01/17 04/01/17 18:59 06:59 18:59 Intake Total 250 600 Output Total 200 150 Balance 50 450 Intake: Intake, IV Amount 100 Right Forearm 100 Oral 150 600 Output: Urine 200 150 Urethral (Gatica) 200 Urine, Voided 150 Other: # Voids Urethral (Gatica) 3 Urine, Voided 1 # Bowel Movements 0 Vital Signs: Vital Signs - 24 hr 03/31/17 03/31/17 03/31/17 17:15 17:30 17:45 Temperature 98.4 F 98 F Pulse Rate 70 78 88 Respiratory 12 14 16 Rate Blood Pressure 118/56 L 133/87 143/95 H O2 Sat by Pulse 98 98 97 Oximetry 03/31/17 04/01/17 04/01/17 18:23 00:00 08:16 Temperature 98.0 F 98 F 97.7 F Pulse Rate 59 L 72 106 H Respiratory 20 20 20 Rate Blood Pressure 135/81 117/66 138/82 O2 Sat by Pulse 97 96 95 Oximetry - Physical Exam Abdominal Exam: Soft, Non-Tender, Non-Distended Back: No CVA Tenderness Genitalia: Without Inflammation Urine Color: Clear, Yellow - Male Prostate: Normal (rectal: NST 20 gram prostate, smooth, symmetric, supple) - Plan Additional Information: Imp: bph. voiding sx, now improved. rec/p: discussed w pt re options. for now, rec flomax bid. add finasteride. pt prefers outpt f/u. poss need for turp in future. YS - Date & Time of Note Date: 04/01/17 Time: 09:45
--- NOTE | 2017-04-01 18:23 | CP.PCM.PN ---
Subjective - Date & Time of Evaluation Date of Evaluation: 04/01/17 Time of Evaluation: 11:00 - Subjective Subjective: Alert, awake, voiding, no bleeding, NAD. Objective - Vital Signs/Intake and Output Vital Signs (last 24 hours): Temp Pulse Resp BP Pulse Ox 97.7 F 89 20 156/76 H 97 04/01/17 15:00 04/01/17 15:00 04/01/17 15:00 04/01/17 15:00 04/01/17 15:00 Intake and Output: 04/01/17 04/01/17 06:59 18:59 Intake Total 600 Output Total 150 Balance 450 - Medications Medications: Current Medications Docusate Sodium (Colace) 100 mg PO BID [facility] Last Admin: 04/01/17 17:58 Dose: 100 mg Famotidine (Pepcid) 40 mg PO DAILY [facility] Last Admin: 04/01/17 08:59 Dose: 40 mg Hydromorphone HCl (Dilaudid) 0.5 mg IVP Q6H PRN PRN Reason: Pain, Mild (1-3) Last Admin: 04/01/17 18:00 Dose: 0.5 mg Tigecycline 50 mg/ Sodium (Chloride) 100 mls @ 100 mls/hr IVPB Q12H [facility] Last Admin: 04/01/17 14:49 Dose: 100 mls/hr Lactulose (Enulose) 30 gm PO DAILY [facility] Last Admin: 04/01/17 14:42 Dose: Not Given Tamsulosin HCl (Flomax) 0.4 mg PO BID [facility] Last Admin: 04/01/17 17:58 Dose: 0.4 mg Tramadol HCl (Ultram) 25 mg PO TID [facility] Last Admin: 04/01/17 14:48 Dose: Not Given Zolpidem Tartrate (Ambien) 5 mg PO HS PRN PRN Reason: Insomnia Last Admin: 03/31/17 21:41 Dose: 5 mg - Labs Labs: 04/01/17 06:52 04/01/17 06:52 PT 13.7 SECONDS (9.7-12.2) H 03/19/17 01:34 INR 1.2 03/19/17 01:34 APTT 30 SECONDS (21-34) 03/19/17 01:34 Assessment and Plan - Assessment and Plan (Free Text) Assessment: Patient is seen and examined. Alert, responsive, no c/o pain this am. Had cystoscopy done yesterday, voiding well. Cleared by DR Garcia, d/w DR Sommer, vidhya plan for today on proscar, flomax and bactrim. Advised to f/u eith DR Garcia and PMD in 1 week.
--- NOTE | 2017-04-01 18:43 | CP.PCM.PN ---
Subjective - Date & Time of Evaluation Date of Evaluation: 04/01/17 Time of Evaluation: 16:00 - Subjective Subjective: afebrile, VOIDING GOOD ?BPH S/P CYSTOSCOPY CLEARED BY CASE DISCUSSED WITH MANAGER PROCESS EXCELLENCE. MS DUNCAN. Objective - Vital Signs/Intake and Output Vital Signs (last 24 hours): Temp Pulse Resp BP Pulse Ox 97.7 F 89 20 156/76 H 97 04/01/17 15:00 04/01/17 15:00 04/01/17 15:00 04/01/17 15:00 04/01/17 15:00 Intake and Output: 04/01/17 04/01/17 06:59 18:59 Intake Total 600 Output Total 150 Balance 450 - Medications Medications: Current Medications Docusate Sodium (Colace) 100 mg PO BID [facility] Last Admin: 04/01/17 17:58 Dose: 100 mg Famotidine (Pepcid) 40 mg PO DAILY [facility] Last Admin: 04/01/17 08:59 Dose: 40 mg Hydromorphone HCl (Dilaudid) 0.5 mg IVP Q6H PRN PRN Reason: Pain, Mild (1-3) Last Admin: 04/01/17 18:00 Dose: 0.5 mg Tigecycline 50 mg/ Sodium (Chloride) 100 mls @ 100 mls/hr IVPB Q12H [facility] Last Admin: 04/01/17 14:49 Dose: 100 mls/hr Lactulose (Enulose) 30 gm PO DAILY [facility] Last Admin: 04/01/17 14:42 Dose: Not Given Tamsulosin HCl (Flomax) 0.4 mg PO BID [facility] Last Admin: 04/01/17 17:58 Dose: 0.4 mg Tramadol HCl (Ultram) 25 mg PO TID [facility] Last Admin: 04/01/17 18:34 Dose: Not Given Zolpidem Tartrate (Ambien) 5 mg PO HS PRN PRN Reason: Insomnia Last Admin: 03/31/17 21:41 Dose: 5 mg - Labs Labs: 04/01/17 06:52 04/01/17 06:52 PT 13.7 SECONDS (9.7-12.2) H 03/19/17 01:34 INR 1.2 03/19/17 01:34 APTT 30 SECONDS (21-34) 03/19/17 01:34 - Constitutional Appears: No Acute Distress - Eye Exam Eye Exam: EOMI, PERRL - ENT Exam ENT Exam: Normal Oropharynx - Neck Exam Neck Exam: Normal Inspection - Respiratory Exam Respiratory Exam: NORMAL BREATHING PATTERN - Cardiovascular Exam Cardiovascular Exam: REGULAR RHYTHM, +S1, +S2 - GI/Abdominal Exam GI & Abdominal Exam: Soft, Normal Bowel Sounds - Neurological Exam Neurological Exam: Awake, CN II-XII Intact, Oriented x3 - Psychiatric Exam Psychiatric exam: Normal Mood - Skin Skin Exam: Normal Color, Warm Assessment and Plan (1) Abdominal pain Status: Acute (2) UTI (urinary tract infection) Assessment & Plan: REPEAT URINE CULTURES 03/26/17 -VE GROWTH.. CASE DISCUSSED WITH MANAGER PROCESS EXCELLENCE/ STAFF. FOLLOW-UP REPEAT URINE CULTURES OF 03/30 -VE GROWTH OK TO-SWITCHTO BY MOUTH bACTRIM 1 DOUBLE STRENGTH TWICE A DAY FOR 5 DAYS. PER PT MAY NEED TURP IN FUTURE. Status: Acute (3) Lower obstructive uropathy Status: Acute (4) Liver metastasis Status: Acute (5) Diabetes Status: Chronic (6) Metastatic cancer Status: Acute
[2017-04-02] MEDS: HYDROmorphone 0.5 mg/0.5 ml ISec IVP PRN ×2 (09:44→19:27)
--- NOTE | 2017-04-02 10:43 | PCM.URO ---
Urology Progress Note - General General: Tolerating Diet - Subjective Abdominal Pain: No Flank Pain: No Nausea: No Vomiting: No Voiding Well: Yes (better stream this am, compared to last night) Dysuria: No Hematuria: No Frequency: Yes Dsypnea: No Fever & Chills: No - Objective Lab Results Last 24 Hours: Laboratory Results - last 24 hr 04/01/17 04/01/17 04/01/17 11:34 16:10 21:23 POC Glucose (mg/dL) 221 H 230 H 126 H 04/02/17 07:38 POC Glucose (mg/dL) 115 H Intake & Output: Intake & Output 04/01/17 04/02/17 04/02/17 18:59 06:59 18:59 Intake Total 320 Output Total 50 Balance 270 Intake: Intake, IV Amount 100 Right Forearm 100 Oral 220 Output: Urine 50 Urethral (Gatica) 50 Other: # Voids Urethral (Gatica) 1 Urine, Voided 0 Vital Signs: Vital Signs - 24 hr 04/01/17 04/02/17 04/02/17 15:00 00:00 08:10 Temperature 97.7 F 98.5 F 97.5 F L Pulse Rate 89 63 95 H Respiratory 20 20 20 Rate Blood Pressure 156/76 H 126/71 147/73 O2 Sat by Pulse 97 97 96 Oximetry - Physical Exam Abdominal Exam: Soft, Non-Tender, Non-Distended Back: No CVA Tenderness Genitalia: Without Inflammation - Plan Additional Information: Imp: voiding nsx. hx of stricture. hx of bph. Now improved. P: discussed with pat and nursing staff. continue meds - tamsulosin , finasteride. monitor voiding sx. options discussed w pt - Date & Time of Note Date: 04/02/17 Time: 10:43
--- NOTE | 2017-04-02 12:08 | PN ---
DATE: 04/01/2017 SUBJECTIVE: The patient was seen and examined on 04/01/2017, looking comfortable. No nausea, vomiting, diarrhea. No hematuria or hematochezia. Voiding good in the daytime, status post cystoscopy. The patient was cleared by Dr. Garcia for discharge. Discussion done with dr garcia , nurse practitioner, actually she put the discharge and wrote prescriptions, but late in the evening, the nurse called me and even Dr. Garcia texted me that patient is feeling he cannot void more, having pressure, and abdominal pain. We will hold discharge, we will follow up. PHYSICAL EXAMINATION: VITAL SIGNS: Temperature 97.7, pulse 89, respirations 20, blood pressure 152/64, pulse oxymetry 97. HEENT: Head is normocephalic and atraumatic. Eyes: PERRLA. Extraocular muscles intact. Conjunctivae clear. Nose patent. NECK: Supple. No carotid bruit. No JVD or thyromegaly. CHEST: Bilaterally symmetrical. HEART: S1 and S2 positive. LUNGS: Clear to auscultation. ABDOMEN: Soft. Bowel sounds are present. No organomegaly. EXTREMITIES: No edema. No cyanosis. NEUROLOGIC: The patient is awake and alert. Moving all four extremities. No focal deficits. MEDICATIONS: Colace, Pepcid, Dilaudid, lactulose, Flomax, Ultram, Ambien. LABORATORY DATA: White blood cell 5.5, hemoglobin 11.7, hematocrit 35.7, platelets 260. Sodium 134, potassium 4.9, BUN 23, creatinine 0.8, glucose 100. ASSESSMENT AND PLAN: Mr. Raudel Jones is a 76-year-old male with insomnia, anemia, diabetes mellitus, metastatic cancer, abdominal pain, urinary tract infection. Repeat urine culture on 03/26/2017, negative growth. According to Infectious Disease, it is okay to switch antibiotics to Bactrim one double-strength twice a day for 5 days. According to urologist, patient need transurethral resection of the prostate in future, status post cystoscopy for obstructive uropathy and liver metastasis. Plan was to discharge this patient, cleared by the urologist , but later on, at the end of day, the patient felt that he cannot pee and he was feeling pressure in the lower abdomen. Bladder scan was done by the nurse and we will hold the discharge. We will do follow up and plan according to that. The patient is getting Flomax b.i.d. and finasteride. The patient need transurethral resection of the prostate in the future, status post cystoscopy, we will follow up. Apple Sommer MD MTDD
[2017-04-02] MEDS: Tramadol 25 mg PO SCH ×3 (14:15→17:25)
--- NOTE | 2017-04-02 16:25 | CP.PCM.PN ---
Subjective - Date & Time of Evaluation Date of Evaluation: 04/02/17 Time of Evaluation: 16:00 - Subjective Subjective: TRAVEL COTA NOTES 76 YR OLD MALE WITH PANCREATIC CA , ADMITTED FOR URINARY RETENSION /STRICTURE S/P CYSTOSCOPY BY DR. MCKENZIE FAITH CATH D/C . PER RN PT VOIDS X 3 THIS AM PT C/O NOT VOIDING FREQUENTLY BLADDER SCAN DONE 120 ML . JONAH CASANOVA AWARE, RECOMMENDS TO START PROSCAR AND CLEARED FOR DISCHARGE FROM [facility]Y [facility] WILLIE CASANOVA STABLE FOR DISCHARGE HOME OTDAY AND F/U WITH DR. TAPIA OFFICE ON FRIDAY D/W WITH PATIENT , PRESCRIPTION GIVEN Objective - Vital Signs/Intake and Output Vital Signs (last 24 hours): Temp Pulse Resp BP Pulse Ox 97.5 F L 95 H 20 147/73 96 04/02/17 08:10 04/02/17 08:10 04/02/17 08:10 04/02/17 08:10 04/02/17 08:10 Intake and Output: 04/02/17 04/02/17 06:59 18:59 Intake Total 320 500 Output Total 50 75 Balance 270 425 - Medications Medications: Current Medications Docusate Sodium (Colace) 100 mg PO BID [facility] Last Admin: 04/02/17 09:45 Dose: 100 mg Famotidine (Pepcid) 40 mg PO DAILY [facility] Last Admin: 04/02/17 09:45 Dose: 40 mg Finasteride (Proscar) 5 mg PO DAILY [facility] Last Admin: 04/02/17 15:16 Dose: 5 mg Hydromorphone HCl (Dilaudid) 0.5 mg IVP Q6H PRN PRN Reason: Pain, Mild (1-3) Last Admin: 04/02/17 09:44 Dose: 0.5 mg Tigecycline 50 mg/ Sodium (Chloride) 100 mls @ 100 mls/hr IVPB Q12H [facility] Last Admin: 04/02/17 12:09 Dose: 100 mls/hr Lactulose (Enulose) 30 gm PO DAILY [facility] Last Admin: 04/02/17 14:15 Dose: Not Given Tamsulosin HCl (Flomax) 0.4 mg PO BID [facility] Last Admin: 04/02/17 09:45 Dose: 0.4 mg Tramadol HCl (Ultram) 25 mg PO TID [facility] Last Admin: 04/02/17 14:18 Dose: Not Given Zolpidem Tartrate (Ambien) 5 mg PO HS PRN PRN Reason: Insomnia Last Admin: 04/01/17 22:34 Dose: 5 mg - Labs Labs: 04/01/17 06:52 04/01/17 06:52 PT 13.7 SECONDS (9.7-12.2) H 03/19/17 01:34 INR 1.2 03/19/17 01:34 APTT 30 SECONDS (21-34) 03/19/17 01:34
[2017-04-03 01:27] VITALS: RESP 20
--- NOTE | 2017-04-03 07:24 | PN ---
SUBJECTIVE: The patient is a 76 years old male. The patient was seen and examined on the bedside. Early in the morning, he had 3 times urination, looking comfortable, was ready to go home. Later on, nurse called me that he is thinking he is not passing his complete urine, then bladder scan was done which showed [address] Garcia was consulted by the nurse practitioner, prescription given to the patient for discharge, but nurse called me at 9.00 p.m. that the patient is not going home, he is thinking he cannot urinate completely, is not ready to take care of him. Otherwise, no nausea, vomiting, or diarrhea. No headache or dizziness. PHYSICAL EXAMINATION: VITAL SIGNS: Temperature 98.4, pulse 91, respirations 15, blood pressure 144/77. HEENT: Head is normocephalic and atraumatic. Eyes: PERRLA. Extraocular muscles intact. Conjunctivae clear. Nose patent. Mucous membranes moist. NECK: Supple. No carotid bruit, JVD, or thyromegaly. CHEST: Bilaterally symmetrical. HEART: S1 and S2 positive. LUNGS: Clear to auscultation. ABDOMEN: Soft. Bowel sounds are positive. No organomegaly. EXTREMITIES: No edema. No cyanosis. NEUROLOGIC: The patient is awake and alert. Moving all four extremities. No focal deficits. MEDICATIONS: Ambien, Colace, Dilaudid, lactulose, Flomax, Pepcid, Proscar, tigecycline, and tramadol. LABORATORY DATA: White blood cells 5.5, hemoglobin 11.5, hematocrit 35.7, platelets 268. Glucose 144, 169, 148, 150, 126, 230. ASSESSMENT AND PLAN: The patient is a 76-year-old male with multiple abdominal problem, history of urethral stricture dilated by Dr. Garcia, voiding problem, history of benign prostatic hypertrophy, now improving. Dr. Garcia started tamsulosin and finasteride. Option discussed with the patient by Dr. Carmen Garcia, seen by Ana Smith, nurse practitioner. Infectious Disease is in the case for IV antibiotics because of methicillin-resistant Staphylococcus aureus in the urine. Has history of insomnia, anemia, diabetes mellitus, metastatic cancer, sepsis. The patient is complaining off and on, cannot pee. Urologist is on the case, GI/DVT prophylaxis. Repeat labs. We will follow. Apple Sommer MD
[2017-04-03] MEDS: Tramadol 25 mg PO SCH ×3 (09:45→18:04)
--- NOTE | 2017-04-03 12:48 | PCM.URO ---
Urology Progress Note - Objective Lab Results Last 24 Hours: Laboratory Results - last 24 hr 04/02/17 04/02/17 04/03/17 16:05 21:04 07:51 POC Glucose (mg/dL) 169 H 144 H 102 04/03/17 11:08 POC Glucose (mg/dL) 226 H Intake & Output: Intake & Output 04/02/17 04/03/17 04/03/17 18:59 06:59 18:59 Intake Total 500 950 Output Total 75 80 Balance 425 870 Intake: Intake, IV Amount 100 200 Right Forearm 100 200 Oral 400 750 Output: Urine 75 80 Urethral (Gatica) 80 Urine, Voided 75 Other: # Voids Urethral (Gatica) 1 Urine, Voided 3 2 # Bowel Movements 1 Vital Signs: Vital Signs - 24 hr 04/02/17 04/03/17 04/03/17 15:00 00:00 07:09 Temperature 98.4 F 98 F 97.6 F Pulse Rate 91 H 72 74 Respiratory 22 20 20 Rate Blood Pressure 144/77 136/71 138/75 O2 Sat by Pulse 96 95 96 Oximetry
[2017-04-03] MEDS: HYDROmorphone 0.5 mg/0.5 ml ISec IVP PRN (18:00)
--- NOTE | 2017-04-04 09:14 | PCM.URO ---
Urology Progress Note - General General: No Complaints - Subjective Abdominal Pain: No Flank Pain: No Nausea: No Voiding Well: No Hematuria: No Good Stream: No Dsypnea: No Chest Pain: No Fever & Chills: No Other: catheter inserted yesterday. pt is more comfortable - Objective Lab Results Last 24 Hours: Laboratory Results - last 24 hr 04/03/17 04/03/17 04/03/17 11:08 16:24 21:22 POC Glucose (mg/dL) 226 H 184 H 148 H Intake & Output: Intake & Output 04/03/17 04/04/17 04/04/17 18:59 06:59 18:59 Intake Total 340 250 150 Output Total 400 300 200 Balance -60 -50 -50 Intake: Intake, IV Amount 100 Right Forearm 100 Oral 240 250 150 Output: Urine 400 300 200 Urethral (Gibbs) 400 300 200 Other: # Voids Urethral (Gibbs) 3 Urine, Voided 0 # Bowel Movements 0 Vital Signs: Vital Signs - 24 hr 04/04/17 00:00 Temperature 97.6 F Pulse Rate 64 Respiratory 20 Rate Blood Pressure 133/77 O2 Sat by Pulse 96 Oximetry - Physical Exam Abdominal Exam: Soft, Non-Tender, Non-Distended Bowel Sounds: Normal Back: No CVA Tenderness Genitalia: Without Inflammation - Plan Additional Information: Imp: stable p catheter insertion. plan: gibbs cath to leg bag. discussed w pt. YS - Date & Time of Note Date: 04/04/17 Time: 09:14
[2017-04-04] MEDS: Tramadol 25 mg PO SCH ×3 (10:45→18:00)
[2017-04-04] MEDS: HYDROmorphone 0.5 mg/0.5 ml ISec IVP PRN ×2 (10:52→16:31)
[2017-04-04] MEDS ORDERED: Aluminum Hydroxide/Magnesium Hydroxide Susp (30 mL) PO ONE ×2 (15:13→16:45)
--- NOTE | 2017-04-05 01:19 | PN ---
SUBJECTIVE: The patient is 76 years old male. The patient was seen and examined at the bedside, looking comfortable, has Gatica catheter, no more urinary problem. As per the patient, he did not want to go home. He said nobody can take care of him when he is at home. He is feeling very fatigued and tired. Actually, in the beginning of the hospital admission, everyday he was asking me to go home. He was not ready. Now, he is ready, but according to him, nobody can take care of him when he is at home. Then, I talked to the social workers. We are trying to get a rehab for the patient and end of the day, I spoke to the patient's daughter also. I gave her opinion that if you are feeling he is weak, he cannot walk, then we will give rehab as per physical therapy people. He was not cooperative, collaborating with physical therapy, but today, he did some physical therapy. No nausea, vomiting, or diarrhea. PHYSICAL EXAMINATION: VITAL SIGNS: Temperature 97.8, pulse 82, blood pressure 153/82, and respiratory rate 20. HEENT: Head normocephalic, atraumatic. Eyes, PERRLA. Extraocular muscles intact. Conjunctivae clear. Nose is patent. Mucous membranes are moist.. NECK: Supple. No carotid bruits, JVD, or thyromegaly. CHEST: Bilaterally symmetrical. HEART: S1 and S2 positive. LUNGS: Clear to auscultation. ABDOMEN: Soft and tender in the lower area, no organomegaly. EXTREMITIES: No edema, no cyanosis. NEUROLOGIC: The patient is awake and alert, moving all 4 extremities. No focal deficit. MEDICATIONS: Ambien, Colace, Dilaudid, Enulose, Flomax, Pepcid, Proscar, tigecycline, and tramadol. LABORATORY DATA: White blood cells 5.5, hemoglobin 11.5, hematocrit 35.7, and platelets 268. Glucose 156, 159, 130, 135, 148. ASSESSMENT AND PLAN: The patient is 76 years old male with multiple medical problems. Urologist, Dr. Garcia is on the case, history of urethral stricture dilated by Dr. Garcia, was having voiding problem, now has Gatica catheter, benign prostatic hypertrophy. .Dr. Garcia started on tamsulosin and finasteride, getting antibiotics for urinary tract infection, tigecycline. He has insomnia and anemia, diabetes mellitus, metastatic cancer, and sepsis improving. Urologist on the case. Started physical therapy. We will send the patient to rehab. The patient's oncologist is Dr. Ortiz. In the beginning, we consulted with Dr. Ortiz. We will try to get re-consult. Dr. Ortiz saw the patient on 03/19/2017. According to him, the patient has pancreas cancer, wildly metastatic to the liver. He received chemotherapy. Repeat CAT scan shows slight increase in the liver metastases and new ascites. Gastrointestinal and deep venous thrombosis prophylaxis. Repeat labs. Apple Sommer MD
[2017-04-05] MEDS ORDERED: HYDROmorphone 0.5 mg/0.5 ml ISec IVP PRN (10:07)
[2017-04-05] MEDS: Tramadol 25 mg PO SCH ×3 (10:09→18:12)
--- NOTE | 2017-04-05 10:10 | CP.PCM.CON ---
<Jasmin Mandel - Last Filed: 04/05/17 10:20> History of Present Illness - History of Present Illness History of Present Illness: Robert Starks is a 76M with a hx of of metastatic pancreatic cancer?, DM, HTN who presented with left groin pain. He has been diagnosed with metastatic pancreatic ca based on liver met pathology with no identifiable lesion on pancreas, for which he was getting chemotherapy for outpatient. We were consulted for pain. Patient began complaining of left groin pain couple of days ago and was found to have a hernia. He states he pain is resolved and he does not have any currently. He states he is tolerating diet, denies nausea/vomiting , fevers/chills. Recently he has not had trouble with passing stool. Last bowel movement was a few days ago and is now complaining of constipation. Pt has a hx of constipation and states that he has been prescribed lactulose as an oupt. Pt reports almost daily use of lactulose BID with bloating. Pt states that his pain is located in left inguinal area. Rates his pain a 3 out of 10, nonradiating. He states that he is not a surgical cannidate. Pt has no hx of abd paracentesis. PMH: DM, HN, Pancreatic cancer PSH: poss I&D of perianal abscess in 2009 as described by patient Social: denies tobacco, alcohol illicit drugs Allergies: NKDA Endoscopy hx: Colonoscopy 5-10 years ago, his unaware of the findings but states that they were neg. EGD 2016 with apparently no findings 12 point ROS conducted, neg other than whats stated above Past Patient History - Past Medical History & Family History Past Medical History?: Yes - Past Social History Smoking Status: Former Smoker - CARDIAC Hx Congestive Heart Failure: Yes Hx Hypertension: Yes - PULMONARY Hx Chronic Obstructive Pulmonary Disease (COPD): Yes - NEUROLOGICAL Hx Neurological Disorder: No - HEENT Hx HEENT Problems: No - RENAL Hx Chronic Kidney Disease: No - ENDOCRINE/METABOLIC Hx Diabetes Mellitus Type 2: Yes - HEMATOLOGICAL/ONCOLOGICAL Hx Blood Disorders: Yes Hx Blood Transfusions: No Hx Blood Transfusion Reaction: No Hx Cancer: Yes (METS.(LIVER MASS, LUNG MASS), CURRENTLY DOING CHEMOTHERAPY) Other/Comment: LIVER CA - INTEGUMENTARY Hx Dermatological Problems: No - MUSCULOSKELETAL/RHEUMATOLOGICAL Hx Arthritis: Yes (KAREEM) - GASTROINTESTINAL Hx Gastrointestinal Disorders: Yes Other/Comment: HX: LIVER MASS. HX: WEIGHT LOSS. HX: ABDOMINAL PAIN - GENITOURINARY/GYNECOLOGICAL Hx Genitourinary Disorders: No - PSYCHIATRIC Hx Substance Use: No - SURGICAL HISTORY Hx Surgeries: Yes Hx Angiogram: Yes Hx Angioplasty: Yes Hx Vascular Surgery: Yes (STENT IN LEGS) Other/Comment: HX: I & D ABSCESS IN GROIN - ANESTHESIA Hx Anesthesia: Yes Hx Anesthesia Reactions: No Hx Malignant Hyperthermia: No Meds Home Medications: Home Medication List Medication Instructions Recorded Confirmed Type Famotidine [Pepcid] 20 mg PO DAILY #15 tab 03/28/17 Rx traMADol [Ultram] 25 mg PO TID PRN #20 tab 03/28/17 Rx Sulfamethoxazole/Trimethoprim 1 each PO Q12H #10 tablet 04/01/17 Rx [Bactrim Ds Tablet] Finasteride [Proscar] 5 mg PO DAILY #30 tab 04/02/17 Rx Tamsulosin HCl [Flomax] 0.4 mg PO Q12H #60 cap.er.24h 04/03/17 Rx Allergies/Adverse Reactions: Allergies Allergy/AdvReac Type Severity Reaction Status Date / Time No Known Allergies Allergy Verified 03/17/17 16:07 - Medications Medications: Current Medications Docusate Sodium (Colace) 100 mg PO BID [facility] Last Admin: 04/04/17 18:00 Dose: 100 mg Famotidine (Pepcid) 40 mg PO DAILY [facility] Last Admin: 04/04/17 10:47 Dose: 40 mg Finasteride (Proscar) 5 mg PO DAILY [facility] Last Admin: 04/04/17 10:47 Dose: 5 mg Hydromorphone HCl (Dilaudid) 0.5 mg IVP Q6H PRN PRN Reason: Pain, Mild (1-3) Last Admin: 04/04/17 16:31 Dose: 0.5 mg Tigecycline 50 mg/ Sodium (Chloride) 100 mls @ 100 mls/hr IVPB Q12H [facility] Last Admin: 04/04/17 22:35 Dose: 100 mls/hr Lactulose (Enulose) 30 gm PO DAILY [facility] Last Admin: 04/04/17 10:49 Dose: Not Given Tamsulosin HCl (Flomax) 0.4 mg PO BID [facility] Last Admin: 04/04/17 18:00 Dose: 0.4 mg Tramadol HCl (Ultram) 25 mg PO TID [facility] Last Admin: 04/04/17 18:00 Dose: 25 mg Zolpidem Tartrate (Ambien) 5 mg PO HS PRN PRN Reason: Insomnia Last Admin: 04/04/17 21:56 Dose: 5 mg Physical Exam - Constitutional Appears: Well, No Acute Distress - Head Exam Head Exam: ATRAUMATIC, NORMOCEPHALIC - Eye Exam Eye Exam: EOMI, Normal appearance - ENT Exam ENT Exam: Mucous Membranes Moist - Respiratory Exam Respiratory Exam: Clear to Auscultation Bilateral, NORMAL BREATHING PATTERN. absent: Decreased Breath Sounds, Rales, Rhonchi, Wheezes, Respiratory Distress - Cardiovascular Exam Cardiovascular Exam: REGULAR RHYTHM, +S1, +S2 - GI/Abdominal Exam GI & Abdominal Exam: Distended, Normal Bowel Sounds Additional comments: + fluid wave, no tenderness - Exam Additional comments: left inguinal hernia - Extremities Exam Additional comments: mild pitting edema - Neurological Exam Neurological exam: Alert, Oriented x3 - Psychiatric Exam Psychiatric exam: Normal Affect, Normal Mood - Skin Skin Exam: Dry, Intact, Normal Color, Warm Results - Vital Signs Recent Vital Signs: Last Vital Signs Temp 98.7 F 04/05/17 08:00 Pulse 93 H 04/05/17 08:00 Resp 20 04/05/17 08:00 BP 144/85 04/05/17 08:00 Pulse Ox 96 04/05/17 08:00 - Labs Result Diagrams: 04/01/17 06:52 04/01/17 06:52 Labs: Laboratory Results - last 24 hr 04/04/17 04/04/17 04/04/17 08:31 12:05 16:32 POC Glucose (mg/dL) 134 H 130 H 169 H 04/04/17 04/05/17 21:06 07:19 POC Glucose (mg/dL) 166 H 111 H Assessment & Plan - Assessment and Plan (Free Text) Assessment: Robert Starks is a 76M with hx of Met pancreatic ca?, BPH, HTN, DM who presented with def urinating and left inguinal pain. Pt has had subsequent urological procedures s/p gibbs. Currently on abx of UTI UTI Urethral Stricture Abd pain, improved, not currently complaining Met Pancreatic ca abd distention etiology constipation vs ascities Plan: -abd pain improved -would not pursue abd paracent at this time 2/2 infect risk, if distention worsen would consider otherwise -would continue his lactulose prn as oupt -will add miralax daily -continue chemo as per onc -okay for d/c to rehab from GI standpoint -etiology of liver mets cannot be concluded to be pancreatic; ddx biliary and cholangio -D/W Dr. Claudio <Placido Claudio - Last Filed: 04/05/17 10:27> Meds - Medications Medications: Current Medications Docusate Sodium (Colace) 100 mg PO BID [facility] Last Admin: 04/05/17 10:05 Dose: 100 mg Famotidine (Pepcid) 40 mg PO DAILY [facility] Last Admin: 04/05/17 10:05 Dose: 40 mg Finasteride (Proscar) 5 mg PO DAILY [facility] Last Admin: 04/05/17 10:05 Dose: 5 mg Hydromorphone HCl (Dilaudid) 0.25 mg IVP Q6H PRN PRN Reason: Pain, Mild (1-3) Tigecycline 50 mg/ Sodium (Chloride) 100 mls @ 100 mls/hr IVPB Q12H [facility] Last Admin: 04/04/17 22:35 Dose: 100 mls/hr Lactulose (Enulose) 30 gm PO DAILY [facility] Last Admin: 04/05/17 10:22 Dose: Not Given Tamsulosin HCl (Flomax) 0.4 mg PO BID [facility] Last Admin: 04/05/17 10:05 Dose: 0.4 mg Tramadol HCl (Ultram) 25 mg PO TID [facility] Last Admin: 04/05/17 10:09 Dose: 25 mg Zolpidem Tartrate (Ambien) 5 mg PO HS PRN PRN Reason: Insomnia Last Admin: 04/04/17 21:56 Dose: 5 mg Results - Vital Signs Recent Vital Signs: Last Vital Signs Temp 98.7 F 04/05/17 08:00 Pulse 93 H 04/05/17 08:00 Resp 20 04/05/17 08:00 BP 144/85 04/05/17 08:00 Pulse Ox 96 04/05/17 08:00 - Labs Result Diagrams: 04/01/17 06:52 04/01/17 06:52 Labs: Laboratory Results - last 24 hr 04/04/17 04/04/17 04/04/17 08:31 12:05 16:32 POC Glucose (mg/dL) 134 H 130 H 169 H 04/04/17 04/05/17 21:06 07:19 POC Glucose (mg/dL) 166 H 111 H Attending/Attestation - Attestation I have personally seen and examined this patient.: Yes I have fully participated in the care of the patient.: Yes I have reviewed all pertinent clinical information: Yes Notes (Text): 04/05/17 10:24 76 year old male with h/o 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 He localizes discomfort to L inguinal hernia, which is reducible and surgery has evaluated. He has abdominal distention related to ascites, but doesn't complain about it too much. He also has issues with constipation for which he takes lactulose with good relief at home. 1. Ascites 2. Chronic constipation 3. Pancreatic adenocarcinoma Plan: -recommend supportive measures -bowel regimen with lactulose per patient -would consider paracentesis in the future if his ascites become more symptomatic -he has presumed pancreatic ca based on path from biopsy of liver lesion but no pancreatic lesion / biliary obstruction noted in the past -chemo per Dr. bui -ok to go to rehab from GI standpoint
--- NOTE | 2017-04-06 00:28 | PN ---
DATE: 04/05/2017 SUBJECTIVE: The patient 76 years old male. The patient was seen and examined at the bedside, looking comfortable. No nausea, vomiting or diarrhea. No hematuria or hematochezia. No headache or dizziness. Abdominal pain is getting better. PHYSICAL EXAMINATION: VITAL SIGNS: Temperature is 97.9, pulse 80, blood pressure of 181/109 and respiratory rate 20. HEENT: Head normocephalic and atraumatic. Eyes: PERRLA. Extraocular muscles intact. Conjunctivae clear. Nose patent. Mucous membranes are moist. NECK: Supple. No carotid bruits, JVD, or thyromegaly. CHEST: Bilaterally symmetrical. HEART: S1 and S2 positive. LUNGS: Clear to auscultation. ABDOMEN: Soft. Bowel sounds present. No organomegaly. EXTREMITIES: No edema. No cyanosis. NEUROLOGIC: The patient is awake and alert. Moving all 4 extremities. No focal deficits. MEDICATIONS: Ambien, Colace, Dilaudid, Flomax, Proscar, tigecycline, Pepcid and tramadol. LABORATORY DATA: White blood cells 5.5, hemoglobin 11.5, hematocrit 35.7 and platelets 268. Glucose 136, 151 and 111. ASSESSMENT AND PLAN: Mr. Robert Starks is 76 years old male with multiple medical problems has metastatic adenocarcinoma to the liver presumed pancreatic lesion if the patient is admitted with urinary tract infection, methicillin-resistant Staphylococcus aureus positive, urethral stricture, surgery is done by Dr. Garcia, benign prostatic hypertrophy, has been on Proscar and has a permanent catheter, having abdominal pain off and on, we called GI consult for that. The patient has documented left inguinal hernia, but that is reducible. The patient reported to Surgery. The patient is not candidate for surgery. Now, the patient has ascites and the patient is not complaining about ascites. The patient still constipation, lactulose given with good relief. Recommending supportive measures. Order consider paracentesis in the future if his ascites did not get recover and will become symptomatic. Urologist and GI is on the case. Repeat labs. GI/DVT prophylaxis. We will follow up. Apple Sommer MD [facility] # [id number]
--- NOTE | 2017-04-06 09:24 | PCM.URO ---
Urology Progress Note - Subjective Abdominal Pain: Yes Flank Pain: No Nausea: No Vomiting: No Voiding Well: No Hematuria: No Other: catheter in place. Had BM yesterday - Objective Lab Results Last 24 Hours: Laboratory Results - last 24 hr 04/05/17 04/05/17 04/05/17 11:17 16:18 21:13 POC Glucose (mg/dL) 151 H 136 H 129 H 04/06/17 07:36 POC Glucose (mg/dL) 102 Intake & Output: Intake & Output 04/05/17 04/06/17 04/06/17 18:59 06:59 18:59 Intake Total 1360 400 Output Total 350 150 Balance 1010 400 -150 Intake: Intake, IV Amount 200 100 Right Forearm 200 100 Oral 1160 300 Output: Urine 350 150 Urethral (Gatica) 350 150 Other: # Voids Urethral (Gatica) 300 # Bowel Movements 0 Vital Signs: Vital Signs - 24 hr 04/05/17 04/05/17 04/06/17 16:00 16:47 00:52 Temperature 97.9 F 97.5 F L Pulse Rate 80 79 Respiratory 20 20 Rate Blood Pressure 148/79 181/101 H 137/80 O2 Sat by Pulse 97 97 Oximetry 04/06/17 08:11 Temperature 97.9 F Pulse Rate 85 Respiratory 20 Rate Blood Pressure 145/77 O2 Sat by Pulse 96 Oximetry - Physical Exam Abdominal Exam: Soft, Non-Tender. absent: Non-Distended Back: No CVA Tenderness Genitalia: Without Inflammation Urinary Catheter Draining Well: Yes Urine Color: Clear, Yellow - Male Phallus: Normal, Circumcised Scrotum: Normal Testes: Normal: Bilateral - Plan Catheter Care: Yes Additional Information: Imp: urologically stable, with indwelling catheter. Pt prefers catheter left in - Date & Time of Note Date: 04/06/17 Time: 09:24
[2017-04-06] MEDS: Tramadol 25 mg PO SCH ×3 (09:59→17:34)
--- NOTE | 2017-04-06 11:24 | CP.PCM.PN ---
<Jasmin Mandel - Last Filed: 04/06/17 11:28> Subjective - Date & Time of Evaluation Date of Evaluation: 04/06/17 Time of Evaluation: 08:00 - Subjective Subjective: PGY4 GI follow-up note Pt seen and examined bedside No new complaints, other than abd distention tolerating diet ambulating denies any abd pain denies nausea or vomiting Objective - Vital Signs/Intake and Output Vital Signs (last 24 hours): Temp Pulse Resp BP Pulse Ox 97.9 F 85 20 145/77 96 04/06/17 08:11 04/06/17 08:11 04/06/17 08:11 04/06/17 08:11 04/06/17 08:11 Intake and Output: 04/06/17 04/06/17 06:59 18:59 Intake Total 400 Output Total 150 Balance 400 -150 - Medications Medications: Current Medications Amlodipine Besylate (Norvasc) 10 mg PO DAILY [facility] Last Admin: 04/06/17 09:59 Dose: 10 mg Docusate Sodium (Colace) 100 mg PO BID [facility] Last Admin: 04/06/17 09:58 Dose: 100 mg Famotidine (Pepcid) 40 mg PO DAILY [facility] Last Admin: 04/06/17 09:59 Dose: 40 mg Finasteride (Proscar) 5 mg PO DAILY [facility] Last Admin: 04/06/17 09:59 Dose: 5 mg Hydromorphone HCl (Dilaudid) 0.25 mg IVP Q8H PRN PRN Reason: Pain, Mild (1-3) Tigecycline 50 mg/ Sodium (Chloride) 100 mls @ 100 mls/hr IVPB Q12H [facility] Last Admin: 04/05/17 22:59 Dose: 100 mls/hr Lactulose (Enulose) 30 gm PO DAILY [facility] Last Admin: 04/06/17 09:58 Dose: 30 gm Tamsulosin HCl (Flomax) 0.4 mg PO BID [facility] Last Admin: 04/06/17 09:59 Dose: 0.4 mg Tramadol HCl (Ultram) 25 mg PO TID [facility] Last Admin: 04/06/17 09:59 Dose: 25 mg Zolpidem Tartrate (Ambien) 5 mg PO HS PRN PRN Reason: Insomnia Last Admin: 04/05/17 21:20 Dose: 5 mg - Labs Labs: 04/01/17 06:52 04/01/17 06:52 PT 13.7 SECONDS (9.7-12.2) H 03/19/17 01:34 INR 1.2 03/19/17 01:34 APTT 30 SECONDS (21-34) 03/19/17 01:34 - Constitutional Appears: Well, Non-toxic, No Acute Distress - Head Exam Head Exam: ATRAUMATIC, NORMOCEPHALIC - Eye Exam Eye Exam: Normal appearance - ENT Exam ENT Exam: Mucous Membranes Moist, Normal Exam - Respiratory Exam Respiratory Exam: Clear to Ausculation Bilateral, NORMAL BREATHING PATTERN. absent: Rales, Rhonchi, Wheezes, Respiratory Distress - Cardiovascular Exam Cardiovascular Exam: REGULAR RHYTHM, +S1, +S2 - GI/Abdominal Exam GI & Abdominal Exam: Distended, Normal Bowel Sounds. absent: Firm, Guarding, Tenderness - Extremities Exam Extremities Exam: Pedal Edema - Neurological Exam Neurological Exam: Alert, Awake, Oriented x3 - Psychiatric Exam Psychiatric exam: Normal Affect, Normal Mood - Skin Skin Exam: Dry, Intact, Normal Color, Warm Assessment and Plan - Assessment and Plan (Free Text) Assessment: Robert Starks is a 76M with hx of Met pancreatic ca?, BPH, HTN, DM who presented with def urinating and left inguinal pain. Pt has had subsequent urological procedures s/p gibbs. Currently on abx of UTI UTI Urethral Stricture Abd pain, improved, not currently complaining Met Pancreatic ca abd distention etiology constipation vs ascities Plan: -pt's abd still distended, offered abd paracentesis to pt for diag and comfort, pt deferred at this time and would like to revisit it tomorrow AM -would continue his lactulose prn as oupt -will add miralax daily -continue chemo as per onc -okay for d/c to rehab from GI standpoint -D/W Dr. Claudio <Placido Claudio - Last Filed: 04/06/17 13:27> Objective - Vital Signs/Intake and Output Vital Signs (last 24 hours): Temp Pulse Resp BP Pulse Ox 97.9 F 85 20 145/77 96 04/06/17 08:11 04/06/17 08:11 04/06/17 08:11 04/06/17 08:11 04/06/17 08:11 Intake and Output: 04/06/17 04/06/17 06:59 18:59 Intake Total 400 Output Total 150 Balance 400 -150 - Medications Medications: Current Medications Amlodipine Besylate (Norvasc) 10 mg PO DAILY [facility] Last Admin: 04/06/17 09:59 Dose: 10 mg Docusate Sodium (Colace) 100 mg PO BID [facility] Last Admin: 04/06/17 09:58 Dose: 100 mg Famotidine (Pepcid) 40 mg PO DAILY [facility] Last Admin: 04/06/17 09:59 Dose: 40 mg Finasteride (Proscar) 5 mg PO DAILY [facility] Last Admin: 04/06/17 09:59 Dose: 5 mg Hydromorphone HCl (Dilaudid) 0.25 mg IVP Q8H PRN PRN Reason: Pain, Mild (1-3) Tigecycline 50 mg/ Sodium (Chloride) 100 mls @ 100 mls/hr IVPB Q12H [facility] Last Admin: 04/06/17 11:26 Dose: 100 mls/hr Lactulose (Enulose) 30 gm PO DAILY [facility] Last Admin: 04/06/17 09:58 Dose: 30 gm Tamsulosin HCl (Flomax) 0.4 mg PO BID [facility] Last Admin: 04/06/17 09:59 Dose: 0.4 mg Tramadol HCl (Ultram) 25 mg PO TID [facility] Last Admin: 04/06/17 09:59 Dose: 25 mg Zolpidem Tartrate (Ambien) 5 mg PO HS PRN PRN Reason: Insomnia Last Admin: 04/05/17 21:20 Dose: 5 mg - Labs Labs: 04/01/17 06:52 04/01/17 06:52 PT 13.7 SECONDS (9.7-12.2) H 03/19/17 01:34 INR 1.2 03/19/17 01:34 APTT 30 SECONDS (21-34) 03/19/17 01:34 Attending/Attestation - Attestation I have personally seen and examined this patient.: Yes I have fully participated in the care of the patient.: Yes I have reviewed all pertinent clinical information, including history, physical exam and plan: Yes Notes (Text): 04/06/17 13:26 76 year old male with h/o 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 He localizes discomfort to L inguinal hernia, which is reducible and surgery has evaluated. He has abdominal distention related to ascites, but doesn't complain about it too much. He also has issues with constipation for which he takes lactulose with good relief at home. 1. Ascites 2. Chronic constipation 3. Pancreatic adenocarcinoma Plan: -recommend supportive measures -bowel regimen with lactulose per patient -would consider paracentesis tomorrow if desired by patient -he has presumed pancreatic ca based on path from biopsy of liver lesion but no pancreatic lesion / biliary obstruction noted in the past -chemo per Dr. bui
[2017-04-06] MEDS: HYDROmorphone 0.5 mg/0.5 ml ISec IVP PRN (17:41)
--- NOTE | 2017-04-07 07:41 | PN ---
DATE: SUBJECTIVE: The patient has been examined on bedside, complaining about lower abdominal pain, complaining about abdominal distention. I educated him that this is your ascites. Having a Gatica catheter, urine is draining well with Gatica catheter. No nausea, vomiting. Has constipation, and getting Miralax for that. No headache, no dizziness. PHYSICAL EXAMINATION VITAL SIGNS: Temperature 97.9, pulse 85, respiratory rate 20, blood pressure 145/77, pulse oximetry 96. HEENT: Head is normocephalic, atraumatic. Eyes: PERRLA. Extraocular muscles intact. Conjunctivae clear. Nose patent. Mucous membrane moist. NECK: Supple. No carotid bruits, JVD, or thyromegaly. CHEST: Bilaterally symmetrical. HEART: S1 and S2 positive. LUNGS: Clear to auscultation. ABDOMEN: Soft. Bowel sounds present. No organomegaly. EXTREMITIES: No edema. No cyanosis. NEUROLOGIC: The patient is awake and alert. Moving all 4 extremities. No focal deficits.. MEDICATIONS: Norvasc, Colace, Pepcid, Proscar, Dilaudid, Enulose, Flomax, tramadol, Ambien. LABORATORY DATA: White blood cells 5.5, hemoglobin 11.5, hematocrit 35.7, platelets 268. Sodium 137, potassium 4.9, BUN 23, creatinine 0.8, glucose 100. ASSESSMENT AND PLAN: Mr. Raudel Jones is a 76-year-old male with anemia, increased BUN, has metastatic adenocarcinoma of the liver, presumed pancreatic lesion with metastasis to the liver, was admitted for urinary tract infection, got antibiotics, infectious disease is on the case, has methicillin-sensitive Staphylococcus aureus treated with IV antibiotics, urethral stricture, surgery is done by Dr. Garcia, benign prostatic hypertrophy, complaining about abdominal distention, has discomfort and left inguinal hernia, surgery was invited. According to them, no surgery, then GI was consulted about ascites. Patient has chronic constipation and GI is recommending supportive care. Patient is getting lactulose and Miralax. I have reviewed GI notes, thinking about paracentesis if patient desired. He has presumed pancreatic CA based on pathology from biopsy of the liver lesion, but no pancreatic lesion, biliary obstruction noted in the past. Patient got chemotherapy as per Dr. Ortiz. That consult is also called, waiting for the input. Reviewed Dr. Placido Claudio and Dr. Jose Morales's notes. GI and DVT prophylaxis. Repeat labs. Apple Sommer MD
--- NOTE | 2017-04-07 08:28 | CP.PCM.PN ---
Addendum entered and electronically signed by Jasmin Mandel DO 04/07/17 13:14: Pt now wishes to have an abd paracentesis will place routine for diag and therapeutic routine BW including coags Original Note: <Jasmin Mandel - Last Filed: 04/07/17 08:30> Subjective - Date & Time of Evaluation Date of Evaluation: 04/07/17 Time of Evaluation: 07:00 - Subjective Subjective: PGY4 GI follow-up note Pt seen and examined bedside No new complaints, other than abd distention tolerating diet ambulating denies any abd pain denies nausea or vomiting BM yesterday Objective - Vital Signs/Intake and Output Vital Signs (last 24 hours): Temp Pulse Resp BP Pulse Ox 97.4 F L 108 H 20 145/87 96 04/07/17 07:39 04/07/17 07:39 04/07/17 07:39 04/07/17 07:39 04/07/17 07:39 Intake and Output: 04/07/17 04/07/17 06:59 18:59 Intake Total 570 Output Total 320 Balance 250 - Medications Medications: Current Medications Amlodipine Besylate (Norvasc) 10 mg PO DAILY [facility] Last Admin: 04/06/17 09:59 Dose: 10 mg Docusate Sodium (Colace) 100 mg PO BID [facility] Last Admin: 04/06/17 17:35 Dose: 100 mg Famotidine (Pepcid) 40 mg PO DAILY [facility] Last Admin: 04/06/17 09:59 Dose: 40 mg Finasteride (Proscar) 5 mg PO DAILY [facility] Last Admin: 04/06/17 09:59 Dose: 5 mg Hydromorphone HCl (Dilaudid) 0.25 mg IVP Q8H PRN PRN Reason: Pain, Mild (1-3) Last Admin: 04/06/17 17:41 Dose: 0.25 mg Tigecycline 50 mg/ Sodium (Chloride) 100 mls @ 100 mls/hr IVPB Q12H [facility] Last Admin: 04/06/17 23:45 Dose: 100 mls/hr Lactulose (Enulose) 30 gm PO DAILY [facility] Last Admin: 04/06/17 09:58 Dose: 30 gm Tamsulosin HCl (Flomax) 0.4 mg PO BID [facility] Last Admin: 04/06/17 17:35 Dose: 0.4 mg Tramadol HCl (Ultram) 25 mg PO TID [facility] Last Admin: 04/06/17 17:34 Dose: 25 mg Zolpidem Tartrate (Ambien) 5 mg PO HS PRN PRN Reason: Insomnia Last Admin: 04/06/17 22:13 Dose: 5 mg - Labs Labs: 04/01/17 06:52 04/01/17 06:52 PT 13.7 SECONDS (9.7-12.2) H 03/19/17 01:34 INR 1.2 03/19/17 01:34 APTT 30 SECONDS (21-34) 03/19/17 01:34 - Constitutional Appears: Well, No Acute Distress - Head Exam Head Exam: ATRAUMATIC, NORMOCEPHALIC - Eye Exam Eye Exam: Normal appearance - ENT Exam ENT Exam: Mucous Membranes Moist, Normal Exam - Respiratory Exam Respiratory Exam: Clear to Ausculation Bilateral, NORMAL BREATHING PATTERN. absent: Rales, Rhonchi, Wheezes - Cardiovascular Exam Cardiovascular Exam: REGULAR RHYTHM, +S1, +S2 - GI/Abdominal Exam GI & Abdominal Exam: Distended, Normal Bowel Sounds. absent: Rigid, Tenderness - Neurological Exam Neurological Exam: Alert, Awake, Oriented x3 - Psychiatric Exam Psychiatric exam: Normal Affect, Normal Mood - Skin Skin Exam: Dry, Intact, Normal Color, Warm Assessment and Plan - Assessment and Plan (Free Text) Assessment: Robert Starks is a 76M with hx of Met pancreatic ca?, BPH, HTN, DM who presented with def urinating and left inguinal pain. Pt has had subsequent urological procedures s/p gibbs. Currently on abx of UTI UTI Urethral Stricture Abd pain, improved, not currently complaining Met adenocarcinoma, assumed to be Pancreatic origin abd distention etiology constipation vs ascities Plan: -pt declined abd paracentesis -would continue his lactulose prn as oupt -continue miralax daily -continue chemo as per onc -okay for d/c to rehab from GI standpoint -Will sign off -D/W Dr. Bansal <Rochelle Bansal MD - Last Filed: 04/07/17 18:16> Objective - Vital Signs/Intake and Output Vital Signs (last 24 hours): Temp Pulse Resp BP Pulse Ox 97.8 F 94 H 20 124/78 96 04/07/17 15:00 04/07/17 15:00 04/07/17 15:00 04/07/17 15:00 04/07/17 15:00 Intake and Output: 04/07/17 04/07/17 06:59 18:59 Intake Total 570 380 Output Total 320 300 Balance 250 80 - Medications Medications: Current Medications Amlodipine Besylate (Norvasc) 10 mg PO DAILY [facility] Last Admin: 04/07/17 09:20 Dose: 10 mg Docusate Sodium (Colace) 100 mg PO BID [facility] Last Admin: 04/07/17 18:06 Dose: 100 mg Famotidine (Pepcid) 40 mg PO DAILY [facility] Last Admin: 04/07/17 09:20 Dose: 40 mg Finasteride (Proscar) 5 mg PO DAILY [facility] Last Admin: 04/07/17 09:20 Dose: 5 mg Hydromorphone HCl (Dilaudid) 0.25 mg IVP Q8H PRN PRN Reason: Pain, Mild (1-3) Last Admin: 04/07/17 16:41 Dose: 0.25 mg Lactulose (Enulose) 30 gm PO DAILY [facility] Last Admin: 04/07/17 09:19 Dose: Not Given Tamsulosin HCl (Flomax) 0.4 mg PO BID [facility] Last Admin: 04/07/17 18:07 Dose: 0.4 mg Tramadol HCl (Ultram) 25 mg PO TID [facility] Last Admin: 04/07/17 18:08 Dose: 25 mg Zolpidem Tartrate (Ambien) 5 mg PO HS PRN PRN Reason: Insomnia Last Admin: 04/06/17 22:13 Dose: 5 mg - Labs Labs: 04/07/17 11:40 04/07/17 11:40 PT 13.7 SECONDS (9.7-12.2) H 03/19/17 01:34 INR 1.2 03/19/17 01:34 APTT 30 SECONDS (21-34) 03/19/17 01:34 Attending/Attestation - Attestation I have personally seen and examined this patient.: Yes I have fully participated in the care of the patient.: Yes I have reviewed all pertinent clinical information, including history, physical exam and plan: Yes Notes (Text): 04/07/17 18:10 Patient seen and examined with GI fellow on rounds this am. This is a 76 yr old M with history of metastatic pancreatic ca?, BPH, HTN, DM who presented with difficulty urinating and left inguinal pain. Pt has had subsequent urological procedures s/p gibbs. Currently on abx of UTI. GI consulted for ascites and abdominal distension. Patient ahd initially declined abdominal paracetesis but today agress. Will send fluid for cytology, culture and albumin, total protein and cell count. Continue strict bowel regimen. Rest of plan as per oncology
[2017-04-07] MEDS: Tramadol 25 mg PO SCH ×3 (09:20→18:08)
[2017-04-07 11:53] LABS: BASO % 0.5 % (0.0-2.0); HEMATOCRIT 37.4 % (35.0-51.0); LYMPH # 0.7 K/uL (1.0-4.3); LYMPH % 6.5 % (20.0-40.0); MEAN CELL VOLUME 99.2 fL (80.0-94.0); MEAN CORPUSCULAR HEMOGLOBIN 33.3 pg (27.0-31.0); MEAN CORPUSCULAR HGB CONC 33.6 g/dL (33.0-37.0); MEAN PLATELET VOLUME 9.9 fL (7.2-11.7); MONO # 0.8 K/uL (0.0-0.8); MONO % 7.2 % (0.0-10.0); PLATELET COUNT 215 K/uL (130-400); RED CELL DISTRIBUTION WIDTH 19.6 % (11.5-14.5); WHITE BLOOD COUNT 10.6 K/uL (4.8-10.8)
[2017-04-07 12:06] LABS: CHLORIDE 101 mmol/L (98-107); POTASSIUM 4.3 mmol/L (3.6-5.2); SODIUM 134 mmol/L (132-148)
[2017-04-07 12:09] LABS: BLOOD UREA NITROGEN 31 mg/dL (9-20); CALCIUM 7.6 mg/dl (8.6-10.4); CARBON DIOXIDE 22 mmol/L (22-30); GFR AFRICAN-AMERICAN > 60; GLUCOSE,RANDOM 147 mg/dL (75-110)
[2017-04-07 12:39] LABS: NEUTROPHIL 87 % (50-75); TOTAL CELLS COUNTED 100
[2017-04-07] MEDS: HYDROmorphone 0.5 mg/0.5 ml ISec IVP PRN (16:41)
--- NOTE | 2017-04-08 05:11 | PN ---
DATE: SUBJECTIVE: The patient is a 76-year-old male. The patient was seen and examined at the bedside. In the morning, he was looking comfortable. Before I have to go, the patient refused paracentesis, after that his daughter called my office. Length of time discussion done and now the patient and family wishes to do paracentesis. We will do blood workup. GI is on the case. No nausea, vomiting or diarrhea. The patient is seen and examined on the bedside, complaining about abdominal distention, GERD and dyspepsia. Having Gatica catheter. PHYSICAL EXAMINATION: VITAL SIGNS: Temperature 97.4, pulse 108, respiratory rate 25, blood pressure 141/85, and pulse oximetry 96. HEENT: Head is normocephalic, atraumatic. Eyes: PERRLA. Extraocular muscles intact. Conjunctivae clear. Nose patent. Mucous membrane moist. NECK: Supple. No carotid bruits. No JVD or thyromegaly. CHEST: Bilaterally symmetrical. HEART: S1 and S2 positive. LUNGS: Clear to auscultation. ABDOMEN: Soft. Bowel sounds present. No organomegaly. EXTREMITIES: No edema. No cyanosis. NEUROLOGIC: The patient is awake and alert. Moving all 4 extremities. No focal deficits. MEDICATIONS: Norvasc, Colace, Pepcid, Proscar, Dilaudid, pain medication, Enulose, Flomax, Ultram and Ambien. LABORATORY DATA: White blood cells 5.5, hemoglobin 11.5, hematocrit 35.7 and platelets 260. Sodium 137, potassium 4.9, BUN 23 and creatinine 0.8. ASSESSMENT AND PLAN: The patient is a 76-year-old male with anemia, increased BUN, has little bit dehydration. The patient has metastatic pancreatic carcinoma, benign prostatic hypertrophy, hypertension, diabetes mellitus, urinary tract infection, left inguinal hernia. The patient has urology procedure done status post Gatica, currently on antibiotics for urinary tract infection, gastrointestinal consult for ascites and abdominal distention. The patient had initially denied abdominal paracentesis, but today again agreed. We will send the fluid for the cytology, cultures, and albumin. with the neonatal social worker, embedded case manager, the patient's nursing staff, the patient's daughter and consultants. May be the patient will go for paracentesis tomorrow, and after we will send him to the rehab. Gastrointestinal and deep venous thrombosis prophylaxis. Repeat labs. Apple Sommer MD [facility]
--- NOTE | 2017-04-08 07:17 | CP.PCM.PN ---
<Jasmin Mandel - Last Filed: 04/08/17 07:21> Subjective - Date & Time of Evaluation Date of Evaluation: 04/08/17 Time of Evaluation: 06:45 - Subjective Subjective: PGY4 GI follow-up note Pt seen and examined bedside No new complaints, other than abd distention tolerating diet ambulating denies any abd pain denies nausea or vomiting confused Objective - Vital Signs/Intake and Output Vital Signs (last 24 hours): Temp Pulse Resp BP Pulse Ox 97.8 F 109 H 20 142/86 95 04/08/17 00:00 04/08/17 00:00 04/08/17 00:00 04/08/17 00:00 04/08/17 00:00 Intake and Output: 04/08/17 04/08/17 06:59 18:59 Intake Total 200 Output Total 225 Balance -25 - Medications Medications: Current Medications Amlodipine Besylate (Norvasc) 10 mg PO DAILY [facility] Last Admin: 04/07/17 09:20 Dose: 10 mg Docusate Sodium (Colace) 100 mg PO BID [facility] Last Admin: 04/07/17 18:06 Dose: 100 mg Famotidine (Pepcid) 40 mg PO DAILY [facility] Last Admin: 04/07/17 09:20 Dose: 40 mg Finasteride (Proscar) 5 mg PO DAILY [facility] Last Admin: 04/07/17 09:20 Dose: 5 mg Hydromorphone HCl (Dilaudid) 0.25 mg IVP Q8H PRN PRN Reason: Pain, Mild (1-3) Last Admin: 04/07/17 16:41 Dose: 0.25 mg Lactulose (Enulose) 30 gm PO DAILY [facility] Last Admin: 04/07/17 09:19 Dose: Not Given Tamsulosin HCl (Flomax) 0.4 mg PO BID [facility] Last Admin: 04/07/17 18:07 Dose: 0.4 mg Tramadol HCl (Ultram) 25 mg PO TID [facility] Last Admin: 04/07/17 18:08 Dose: 25 mg Zolpidem Tartrate (Ambien) 5 mg PO HS PRN PRN Reason: Insomnia Last Admin: 04/08/17 02:01 Dose: 5 mg - Labs Labs: 04/07/17 11:40 04/07/17 11:40 PT 13.7 SECONDS (9.7-12.2) H 03/19/17 01:34 INR 1.2 03/19/17 01:34 APTT 30 SECONDS (21-34) 03/19/17 01:34 - Constitutional Appears: Well, No Acute Distress - Head Exam Head Exam: ATRAUMATIC, NORMOCEPHALIC - Eye Exam Eye Exam: Normal appearance - ENT Exam ENT Exam: Mucous Membranes Moist, Normal Exam - Respiratory Exam Respiratory Exam: Clear to Ausculation Bilateral, NORMAL BREATHING PATTERN. absent: Rales, Rhonchi, Wheezes - Cardiovascular Exam Cardiovascular Exam: REGULAR RHYTHM, +S1, +S2 - GI/Abdominal Exam GI & Abdominal Exam: Distended, Normal Bowel Sounds. absent: Guarding, Rigid, Tenderness, Organomegaly - Extremities Exam Extremities Exam: absent: Joint Swelling, Pedal Edema - Neurological Exam Neurological Exam: Alert, Awake, Oriented x3 - Psychiatric Exam Psychiatric exam: Normal Affect, Normal Mood - Skin Skin Exam: Dry, Intact, Normal Color, Warm Assessment and Plan - Assessment and Plan (Free Text) Plan: Robret Starks is a 76M with hx of Met pancreatic ca?, BPH, HTN, DM who presented with def urinating and left inguinal pain. Pt has had subsequent urological procedures s/p gibbs. Currently on abx of UTI ascities UTI Urethral Stricture Abd pain, improved, not currently complaining Met adenocarcinoma, assumed to be Pancreatic origin Plan: -would continue his lactulose prn as oupt -continue miralax daily -continue chemo as per onc -IR guided abd paracentesis today -sent for culture, cytology, glucose, albumin, cell count -give albumin if more than 4L are withdrawn -will r/o SBP -will d/w Dr. Hopkins <Felton Hopkins - Last Filed: 04/08/17 09:15> Objective - Vital Signs/Intake and Output Vital Signs (last 24 hours): Temp Pulse Resp BP Pulse Ox 97.6 F 65 20 152/97 H 98 04/08/17 08:42 04/08/17 08:42 04/08/17 08:42 04/08/17 08:42 04/08/17 08:42 Intake and Output: 04/08/17 04/08/17 06:59 18:59 Intake Total 350 Output Total 475 Balance -125 - Medications Medications: Current Medications Amlodipine Besylate (Norvasc) 10 mg PO DAILY [facility] Last Admin: 04/07/17 09:20 Dose: 10 mg Docusate Sodium (Colace) 100 mg PO BID [facility] Last Admin: 04/07/17 18:06 Dose: 100 mg Famotidine (Pepcid) 40 mg PO DAILY [facility] Last Admin: 04/07/17 09:20 Dose: 40 mg Finasteride (Proscar) 5 mg PO DAILY [facility] Last Admin: 04/07/17 09:20 Dose: 5 mg Hydromorphone HCl (Dilaudid) 0.25 mg IVP Q8H PRN PRN Reason: Pain, Mild (1-3) Last Admin: 04/07/17 16:41 Dose: 0.25 mg Lactulose (Enulose) 30 gm PO DAILY [facility] Last Admin: 04/07/17 09:19 Dose: Not Given Tamsulosin HCl (Flomax) 0.4 mg PO BID [facility] Last Admin: 04/07/17 18:07 Dose: 0.4 mg Tramadol HCl (Ultram) 25 mg PO TID [facility] Last Admin: 04/07/17 18:08 Dose: 25 mg Zolpidem Tartrate (Ambien) 5 mg PO HS PRN PRN Reason: Insomnia Last Admin: 04/08/17 02:01 Dose: 5 mg - Labs Labs: 04/07/17 11:40 04/08/17 07:36 PT 15.7 SECONDS (9.7-12.2) H 04/08/17 07:36 INR 1.4 04/08/17 07:36 APTT 30 SECONDS (21-34) 03/19/17 01:34 Attending/Attestation - Attestation I have personally seen and examined this patient.: Yes I have fully participated in the care of the patient.: Yes I have reviewed all pertinent clinical information, including history, physical exam and plan: Yes Notes (Text): 04/08/17 09:10 I have seen and examined patient with GI fellow. No acute events overnight, he continues to report bilateral inguinal/groin pain but otherwise denies abdominal pain, nausea, vomiting, fever/chills. Tolerating PO diet without difficulty. Review of vitals from today shows tachycardia. Metastatic adenocarcioma of unknown origin s/p palliative chemotherapy DM / HTN UTI, urethral stricture s/p indwelling gibbs Transaminitis, ascites, hyperbilirubinemia - LFTs and bilirubin elevated compared to prior, obtain abdominal US with duplex for further evaluation - Fractionate bilirubin - Follow up oncology recommendations - Patient scheduled for diagnostic/therapeutic paracentesis today with IR, will follow up results - Overall prognosis for patient remains quite poor given advanced disease burden
[2017-04-08 07:53] LABS: INR 1.4
[2017-04-08 08:01] LABS: CHLORIDE 99 mmol/L (98-107)
[2017-04-08 08:02] LABS: POTASSIUM 4.8 mmol/L (3.6-5.2); SODIUM 138 mmol/L (132-148)
[2017-04-08 08:04] LABS: ALB/GLOB RATIO 0.8 (1.0-2.1); ALKALINE PHOSPHATASE 1224 U/L (38-126); ALT/SGPT 92 U/L (21-72); AST/SGOT 125 U/L (17-59); BILIRUBIN,TOTAL 5.2 mg/dL (0.2-1.3); BLOOD UREA NITROGEN 32 mg/dL (9-20); CARBON DIOXIDE 24 mmol/L (22-30); GFR AFRICAN-AMERICAN > 60; TOTAL PROTEIN 5.9 g/dL (6.3-8.3)
[2017-04-08 08:05] LABS: CALCIUM 8.6 mg/dl (8.6-10.4); GLUCOSE,RANDOM 109 mg/dL (75-110)
[2017-04-08] MEDS: Tramadol 25 mg PO SCH ×2 (10:00→14:55)
--- NOTE | 2017-04-08 10:27 | PCM.SURG1 ---
Surgeon's Initial Post Op Note - Surgeon's Notes Surgeon: Jose Luis Gómez MD Land Surveyor Assistant: NONE Type of Anesthesia: Local Pre-Operative Diagnosis: Ascites Operative Findings: US showed moderate ascites. Post-Operative Diagnosis: Ascites Operation Performed: US guided paracentesis. Specimen/Specimens Removed: 3.5 liters straw colored fluid Estimated Blood Loss: EBL {In ML}: 0 Blood Products Given: N/A Drains Used: No Drains Post-Op Condition: Fair Date of Surgery/Procedure: 04/08/17 Time of Surgery/Procedure: 10:20
--- NOTE | 2017-04-08 11:34 | US ---
Date of Procedure: 04/08/2017 PROCEDURE: Ultrasound-guided paracentesis, CPT 17306 Medications: 7 cc 1% Lidocaine HISTORY: Ascites, abdominal pain TECHNIQUE: Following informed consent , the patient was placed supine on the stretcher and the site was marked. A limited abdominal ultrasound was performed that showed a large amount of intra-abdominal fluid. Procedural time out was called and the Pt's abdomen was marked and prepped and draped in the usual sterile fashion. Ultrasound-guided large volume paracentesis performed. A total of 3.5 liters of straw colored fluid was removed without complication. Fluid specimen was sent for culture, sensitivity, cytology and chemistries. IMPRESSION: Ultrasound-guided large volume paracentesis.
--- NOTE | 2017-04-08 13:43 | US ---
HISTORY: elevated LFTs, eval GM and CBD COMPARISON: CT abdomen and pelvis with contrast performed 03/17/17 TECHNIQUE: Sonographic evaluation of the abdomen. FINDINGS: LIVER: Measures 13.6 cm in sagittal dimension. Echogenic liver may be seen in setting of hepatic parenchymal disease or fatty infiltration. Nodular hepatic contour. Known hepatic masses demonstrated on CT performed 03/17/17 are inadequately visualized on the current study. The main portal vein appears patent with normal directional flow. No intrahepatic bile duct dilatation. Ascites. GALLBLADDER: Gallbladder sludge. No gallstones. No gallbladder wall thickening. Negative sonographic Echols's sign as assessed by the nitrogen operator. COMMON BILE DUCT: Measures 5 mm. PANCREAS: Not well visualized. RIGHT KIDNEY: Measures 9.4 x 5.1 x 4.7cm. No obstructing calculus or hydronephrosis identified. LEFT KIDNEY: Measures 10.0 x 4.9 x 5.8cm. No obstructing calculus or hydronephrosis identified. SPLEEN: Measures approximately 9.7 cm. AORTA: Limited views appear unremarkable. IVC: Limited views appear unremarkable. OTHER FINDINGS: The main portal vein, hepatic veins, and splenic vein appear patent with normal directional flow. Send IMPRESSION: Gallbladder sludge. Ascites. Echogenic liver may be seen in setting of hepatic parenchymal disease or fatty infiltration. Known hepatic masses demonstrated on CT performed 03/17/17 are inadequately visualized on the current study. Nodular hepatic contour consistent with cirrhosis. Patent hepatic vasculature with appropriate directional flow.
[2017-04-08 13:57] LABS: BODY FLUID TYPE PERITONEAL
[2017-04-08 15:36] LABS: BF GROSS APPEARANCE SL CLOUDY (CLEAR)
[2017-04-08 16:14] VITALS: BP 96/69; PULSE 94; TEMP 97.5; O2SAT 97
[2017-04-08] MEDS ORDERED: Tramadol 25 mg PO SCH ×2 (16:45→21:00)
--- NOTE | 2017-04-08 16:59 | CP.PCM.PN ---
Subjective - Date & Time of Evaluation Date of Evaluation: 04/08/17 Time of Evaluation: 16:59 - Subjective Subjective: Awake, alert, follows commands, no agitation., NAD. Objective - Vital Signs/Intake and Output Vital Signs (last 24 hours): Temp Pulse Resp BP Pulse Ox 97.5 F L 94 H 20 96/69 L 97 04/08/17 16:10 04/08/17 16:10 04/08/17 16:10 04/08/17 16:10 04/08/17 16:10 Intake and Output: 04/08/17 04/08/17 06:59 18:59 Intake Total 350 120 Output Total 475 200 Balance -125 -80 - Medications Medications: Current Medications Amlodipine Besylate (Norvasc) 10 mg PO DAILY [facility] Last Admin: 04/08/17 12:31 Dose: 10 mg Docusate Sodium (Colace) 100 mg PO BID [facility] Last Admin: 04/08/17 10:00 Dose: Not Given Famotidine (Pepcid) 40 mg PO DAILY [facility] Last Admin: 04/08/17 12:32 Dose: 40 mg Finasteride (Proscar) 5 mg PO DAILY [facility] Last Admin: 04/08/17 12:32 Dose: 5 mg Lactulose (Enulose) 30 gm PO DAILY [facility] Last Admin: 04/08/17 10:00 Dose: Not Given Tamsulosin HCl (Flomax) 0.4 mg PO BID [facility] Last Admin: 04/08/17 12:26 Dose: Not Given Tramadol HCl (Ultram) 25 mg PO QD7 [facility] - Labs Labs: 04/07/17 11:40 04/08/17 07:36 PT 15.7 SECONDS (9.7-12.2) H 04/08/17 07:36 INR 1.4 04/08/17 07:36 APTT 30 SECONDS (21-34) 03/19/17 01:34 Assessment and Plan - Assessment and Plan (Free Text) Assessment: Patient is seen and examine. Awake alert, confused with place and time. No agitation, no acute distress agreement with transporting to [facility] for rehab. Seen by GI, agreed to monitor LFT's in the retirement. Spouse and the daughter agreed. transportation arranged.
--- NOTE | 2017-04-09 09:16 | PN ---
DATE: SUBJECTIVE: The patient is a 76-year-old male. The patient was examined at the bedside. Looking comfortable, tolerating diet, and ambulating. Denies multiple abdominal pain. No nausea, vomiting, or diarrhea. The patient went for paracentesis today. Discussion done with STATION INSTALLER AND REPAIRER , paracentesis process was done very carefully. Discussion done with nurse practitioner, PHYSICAL EXAMINATION VITAL SIGNS: Temperature 97.8, pulse 109, respirations 20, blood pressure 140/86, pulse oxymetry 95. HEENT: Head is normocephalic, atraumatic. Eyes: PERRLA. Extraocular muscles intact. Conjunctivae clear. Nose patent. Mucous membrane moist. NECK: Supple. No carotid bruits or thyromegaly. CHEST: Bilaterally symmetrical. HEART: S1 and S2 positive. LUNGS: Clear to auscultation. ABDOMEN: Soft. Bowel sounds present. No organomegaly. EXTREMITIES: No edema. No cyanosis. NEUROLOGICAL: The patient is awake and alert. Moving all 4 extremities. No focal deficit. MEDICATIONS: Norvasc, Colace, Pepcid, Proscar, Dilaudid, Enulose, Flomax, tramadol, Ambien. LABORATORY DATA: White blood cells 10.6, hemoglobin 12.6, hematocrit 37.6, platelets 215. Sodium 134, potassium 4.3, BUN 31, creatinine 0.7, glucose 147. ASSESSMENT AND PLAN: Mr. Raudel Jones is a 76-year-old male with renal insufficiency, hyperglycemia, liver cancer metastasis, has paracentesis process done by Dr. Valenzuela, benign prostatic hypertrophy, diabetes, mellitus, urinary tract infection with left inguinal hernia, surgery is on the case. Subsequent urological procedure done , got antibiotics for urinary tract infection. Ureteral stricture procedure done by urologist. Abdominal pain improving after paracentesis. New carcinoma with metastasis seems to be pancreatic origin. We will continue lactulose, MiraLax, chemo as per Dr. Mora. IR-guided paracentesis done sent for culture, cytology, glucose, albumin, and cell count. Gastrointestinal and deep venous thrombosis prophylaxis. Discussion done with nurse practitioner . The patient will be discharged to [facility] for continued care and physical therapy. We will followup there. Apple Sommer MD MTD[place]
--- NOTE | 2017-04-09 22:47 | DS ---
Patient is seen and examined at the bedside. Patient was admitted in the hospital on 03/19/2017 and discharged on 04/08/2017. CHIEF COMPLAINT: Right flank pain, fatigue and tiredness. HISTORY OF PRESENT ILLNESS: Mr. Raudel Jones is a 76-year-old male with history of pancreatic cancer with metastasis. Dr. Ortiz is the oncologist giving chemotherapy, came with right-sided abdominal pain in the past. Patient was seen in the ER one day before admission for the same complaints. UTI was diagnosed. Patient was given antibiotics and discharged home. Follow up with Dr. Ortiz. The patient presented to the emergency room with flank pain, and denies fever or chills. We admitted the patient. Consult called with Dr. Ortiz for the continuity of chemotherapy. Dr. Boyd Capellan called due to UTI. Patient has MRSA in the urine, antibiotics were given. Patient was kept for isolation. Patient was having problem with urination. Dr. Garcia consult called. Multiples trials were given to remove the Gatica catheter. Finally, the patient went for urethral stricture dilatation by Dr. Garcia. Now, the patient is at home with Gatica catheter. Patient was having abdominal discomfort. GI consult called. Patient has ascites. Paracentesis done today. Dr. Jose Luis Valeznuela removed the fluid from the abdominal cavity. Liver function test trending up. Urged to repeat liver function test in the rehab. Abdominal test not done. According to GI, the patient does not have any type of obstruction. He is okay to discharge the patient, but needs followup in the rehab. PAST MEDICAL HISTORY: Diabetes mellitus, hypertension, pancreatic cancer with metastasis. FAMILY HISTORY: Father and mother noncontributory. HABITS: No smoking. No drug. No ethanol. ALLERGIES: PATIENT IS NOT ALLERGIC WITH ANY MEDICATIONS. HOME MEDICATIONS: Reviewed by me. REVIEW OF SYSTEMS: Patient was seen and examined at the bedside before discharge. Looking comfortable. No nausea, vomiting, or diarrhea. Planned for paracentesis today by Dr. Valenzuela, cleared by the GI, surgery, and ID. Patient has inguinal hernia, water-filled cavity, does not have any organ in that. Surgery saw the patient and suggested no surgery. For more details, see my progress notes of 04/08/2017. Apple Sommer MD [facility] # [id number]
--- NOTE | 2017-04-21 14:26 | OP ---
DATE OF PROCEDURE: 03/31/2017 PREOPERATIVE DIAGNOSES: Urinary retention, voiding dysfunction, and metastatic pancreatic cancer. POSTOPERATIVE DIAGNOSES: Urinary retention, voiding dysfunction, and metastatic pancreatic cancer. PROCEDURE: Cystoscopy. SURGEON: aNif Garcia MD. ESTIMATED BLOOD LOSS: Less than 10 mL. DRAIN: At the termination of the procedure, we also left a Gatica catheter. UROLOGY FINDINGS: Anterior urethra normal. No stricture was identified on reviewing and is visually occlusive about 3 cm in length (it is conceivable to perform a TURP). The bladder itself is heavily trabeculated with cellules. No bladder lesions were identified. INDICATIONS FOR PROCEDURE: See the history and physical and multiple consultation notes. The patient has metastatic malignancy and is being seen by Oncology; however, what disturbing the patient the most is the recurrence of the urinary retention and he is very uncomfortable and unhappy with the Gatica catheter, therefore, we are trying to see if we can eliminate the catheter, and therefore in an effort to make further diagnostic studies, he is here for the above-listed procedure. In an effort to keep the patient's anesthesia to minimum, we performed the cystoscopy with a flexible cystoscope in a supine position. Multiple pictures were taken, saved, and placed in the chart (found to make an addendum comment here even before the diagnostic discovery, the prostate itself was amenable to a TURP). The issue will be whether or not this will cause recovery. There are multiple factors. This is a longstanding problem. The patient also is with metastatic pancreatic cancer. I discussed the risks, benefits, and treatment alternatives in this particular situation, but the prostate itself is amenable. DESCRIPTION OF PROCEDURE: After informed consent obtained, the patient was placed on the table, routine monitors were placed. Time-out was called to confirm the patient and antibiotics had been already provided. We confirmed the patient and positioning. What we did given his situation, we kept him in a supine position and we performed a flexible cystoscope. The procedure was done with a camera to have assistance visualizing. The anterior urethra was normal. No strictures on reviewing and is visually occlusive about 3 cm plus and minus. There was a minimal amount within the urinary bladder of intravesical prostatic hypertrophy. The procedure continued inspecting the bladder, no bladder lesion, there was some mild erythema, but otherwise within normal limits. It was a heavily trabeculated bladder with some cellules. Overall, the patient tolerated without complications. We inserted a Gatica catheter via the urethra. Naif Garcia MD
== END 2017-04-08 18:55 | disposition home health service (06) | DRG 699 ==
LOC: C.ER 00:43 → C.3T 03:50
PROVIDERS: ADMIT Internal Medicine; ATTEND Internal Medicine
PROC: 3E03305 Introduction of Other Antineoplastic into Peripheral Vein, Percutaneous Approach (ICD-10-PCS; 2017-03-19)
PROC: 0T7D3DZ Dilation of Urethra with Intraluminal Device, Percutaneous Approach (ICD-10-PCS; 2017-03-21)
PROC: 0T9B70Z Drainage of Bladder with Drainage Device, Via Natural or Artificial Opening (ICD-10-PCS; 2017-03-21)
PROC: 0TJB8ZZ Inspection of Bladder, Via Natural or Artificial Opening Endoscopic (ICD-10-PCS; 2017-03-31)
PROC: 0W9G3ZZ Drainage of Peritoneal Cavity, Percutaneous Approach (ICD-10-PCS; principal; 2017-04-08)
DX: N13.9 Obstructive and reflux uropathy, unspecified (principal); R18.8 Other ascites; C78.01 Secondary malignant neoplasm of right lung; C78.02 Secondary malignant neoplasm of left lung; I11.0 Hypertensive heart disease with heart failure; C25.9 Malignant neoplasm of pancreas, unspecified; I50.9 Heart failure, unspecified; C78.7 Secondary malignant neoplasm of liver and intrahepatic bile duct; N39.0 Urinary tract infection, site not specified; N35.9 Urethral stricture, unspecified; N13.5 Crossing vessel and stricture of ureter without hydronephrosis; E86.0 Dehydration; E83.51 Hypocalcemia; G89.3 Neoplasm related pain (acute) (chronic); R10.11 Right upper quadrant pain; E11.65 Type 2 diabetes mellitus with hyperglycemia; E87.6 Hypokalemia; K59.09 Other constipation; K40.90 Unilateral inguinal hernia, without obstruction or gangrene, not specified as recurrent; K21.9 Gastro-esophageal reflux disease without esophagitis; N40.1 Benign prostatic hyperplasia with lower urinary tract symptoms; B95.62 Methicillin resistant Staphylococcus aureus infection as the cause of diseases classified elsewhere; J44.9 Chronic obstructive pulmonary disease, unspecified; N32.89 Other specified disorders of bladder; G47.00 Insomnia, unspecified; D64.9 Anemia, unspecified; Z51.5 Encounter for palliative care; Z87.891 Personal history of nicotine dependence; R33.8 Other retention of urine; T40.605A Adverse effect of unspecified narcotics, initial encounter